=== PATIENT | male | born 1965 | race Caucasian/White ===

== ENCOUNTER 2023-06-21 05:28 | Observation (INO) ==
[2023-06-21] MEDS ORDERED: METOPROLOL TARTRATE 1 MG/ML VIAL IV STA ×2 (05:45→06:40)
[2023-06-21] MEDS ORDERED: SODIUM CHLORIDE 0.9% 1,000 ML IV SCH ×3 (05:45→07:45)
[2023-06-21 06:20] LABS: Basophils # (auto) 0.06 K/uL (0.00-0.20); Basophils % (auto) 0.9 %; Eosinophils # (auto) 0.15 K/uL (0.00-0.50); Eosinophils % (auto) 2.3 %; Hemoglobin 11.6 g/dl (14.0-18.0); Immature Granulocytes # (auto) 0.02 K/uL (0.01-0.20); Immature Granulocytes % (auto) 0.3 %; Lymphocytes # (auto) 1.56 K/uL (1.20-3.40); Mean Corpuscular Hemoglobin 32.9 pg (25.0-34.0); Mean Corpuscular Hgb Conc 34.1 g/dL (32.0-36.0); Mean Corpuscular Volume 96.3 fL (80.0-100.0); Mean Platelet Volume 11.1 fL (9.4-12.4); Monocytes # (auto) 0.82 K/uL (0.11-0.59); Monocytes % (auto) 12.6 %; Neutrophils # (auto) 3.89 K/uL (1.40-6.50); Neutrophils % (auto) 59.9 %; Platelet Count 112 K/uL (130-400); RDW Coefficient of Variation 14.3 % (11.5-14.5); RDW Standard Deviation 49.7 fL (36.4-46.3); Red Blood Count 3.53 M/uL (4.70-6.10)
[2023-06-21 06:28] LABS: Albumin Level 3.4 gm/dl (3.4-5.0); Bilirubin,Total 2.1 mg/dl (0.2-1.0); Calcium 9.8 mg/dl (8.6-10.3); Magnesium 1.6 mg/dl (1.7-2.4); Potassium 3.7 mmol/L (3.5-5.1)
[2023-06-21 06:34] LABS: Albumin Globulin Ratio 0.8 (0.9-2); BUN Creatinine Ratio 25.9 (10-20); Creatinine Clr Calc Pharmacy 118.4 ml/min; Est GFR (African American) 115.1 ml/min; Est GFR (Non-African American) 99.4 ml/min; Globulin 4.5 gm/dl (2.5-4.0); Total Protein 7.9 gm/dl (6.0-8.3)
[2023-06-21 06:37] LABS: INR 1.2 (0.9-1.1); Partial Thromboplastin Time 28.5 Seconds (21.0-31.0); Prothrombin Time 13.4 Seconds (9.0-12.0)
[2023-06-21] MEDS ORDERED: PANTOprazole 80 MG in DEXTROSE 5% 100 ML IV ONE (06:40)
[2023-06-21] MEDS ORDERED: PANTOPRAZOLE BOLUS/DRIP IV STA (06:40)
[2023-06-21 06:49] LABS: Lyme Ab IgG w/WB Rflx Negative (Negative); Lyme Ab IgM w/WB Rflx Negative (Negative)
[2023-06-21 06:50] LABS: Appearance Urine Clear (Clear); Bilirubin Urine Negative (Negative); Blood Urine Negative (Negative); Color Urine Yellow; Glucose Urine UA Negative (Negative); Ketones Urine Negative (Negative); Leukocyte Esterase Urine Negative (Negative); Nitrite Urine Negative (Negative); Protein Urine Negative (Negative); Specific Gravity Urine 1.016 (1.000-1.030); Urobilinogen Urine Negative (Negative)
--- NOTE | 2023-06-21 06:56 | XRay Report ---
XR chest 1V portable CLINICAL HISTORY: weakness COMPARISON STUDY: Chest radiograph June 16, 2019. FINDINGS: Lung volumes are normal. Lungs are clear. There is no pneumothorax or pleural effusion. Car diac size is stable. Mediastinal contours are normal. There is no evidence for pulmonary edema. IMPRESSION: No acute cardiopulmonary findings. ACT 112: Negative or not required by law. Electronically signed by: Remy Perez M.D. 06/21/2023 6:55 AM
[2023-06-21] MEDS: MAGNESIUM SULFATE / D5W 1 GM/100 ML BAG IV SCH ×2 (06:58→08:11)
--- NOTE | 2023-06-21 07:03 | Emergency Department Note ---
Impression & Plan GIB (gastrointestinal bleeding), Alcohol use, Atrial fibrillation ED Provider Note CHIEF COMPLAINT: vomiting blood, dark stools HISTORY OF PRESENT ILLNESS: This 58-year-old male patient past medical history of alcohol dependency, stroke, tobacco dependency, hypertension presents to the emergency department with complaints of nausea, vomiting blood and dark stools. Patient states he has a history of alcohol abuse, drinking one half of a bottle of vodka a day. Patient states he does not follow with a physician as he does not like doctors. He is noted to be tachycardic at triage. Patient denies taking any medications. REVIEW OF SYSTEMS: A review of systems was performed with positives and pertinent negatives listed in the history of present illness. 10 systems were reviewed and are otherwise negative. ALLERGIES: see below MEDICATIONS: see below PMH: see below SOCIAL HISTORY: see below DDx: Peptic ulcer disease, esophageal varices, pancreatitis, diverticulitis, viral etiology among others PHYSICAL EXAM: Vital signs reviewed. General: generally well-appearing 58-year-old male, in no significant distress. clutching an emesis bag with minimal amounts of bright red blood HEENT: No scleral icterus, PERRLA, neck supple. Atraumatic. Cardiovascular: tachycardic, irregular, no extra sounds Pulmonary: Clear to auscultation bilaterally, normal work of breathing. Abdomen: Soft, mild diffuse abdominal tenderness, no rebound or guarding, nondistended, positive bowel sounds. Musculoskeletal: Atraumatic, no peripheral edema. GI: Guaiac positive melanotic stool. Normal external rectal mucosa. Neurologic: Patient awake alert and oriented x 3, speech is clear Skin: Warm, dry, no rash EXTERNAL medical records reviewed: PCP notes dated 09/17 and 09/24/2022, medication history, laboratory work and medication prescription fill history. EMERGENCY DEPARTMENT COURSE/MDM: This patient was evaluated and appeared to be in no significant distress. IV access was obtained and laboratory work was drawn. The patient was placed on the youth nutritional monitor noted to be in a rapid atrial fibrillation. IV access was obtained and reveals a hemoglobin of 11.6. Stool guaiac is positive and melanotic stool. He has not had any significant vomiting of bright red blood. He was started on a Protonix drip and bolus. He was placed on the alcohol withdrawal scale. The patient was discussed with GI as well as hospitalist service. Patient was informed of the findings and plan and will be admitted for further management. MONITORING: An order for cardiac monitoring was placed and the patient is noted to be in a atrial fibrillation at 159 beats per minute. RADIOLOGY: chest x-ray to my interpretation reveals no evidence of focal lung consolidation or failure, otherwise defer to radiology EKG: to my interpretation reveals atrial fibrillation with rapid ventricular response at 160 bpm. Minimal criteria for LVH, nonspecific ST abnormalities. QTc is 479. When compared to previous dated September 10, 2022, atrial fibrillation is new DISPOSITION: admission Past Med/Surg History Medical History GERD (gastroesophageal reflux disease) controlled, stable per pt Alcohol use daily drinker 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-no current deficits Surgical History H/O endoscopic sinus surgery H/O nasal septoplasty History of open reduction and internal fixation (ORIF) procedure right foot - 07/2022 [facility] Family History Grandmother (Maternal) Diabetes Other No significant family history Denies family history of Ovarian cancer Prostate cancer Depression Heart disease Myocardial infarction Breast cancer Lung cancer Colorectal cancer Stroke Social History Smoking Status: Current every day smoker Tobacco Type: Cigarettes packs per day: 1; Cigarettes Per Day: smokes cigarettes 20 per day- if smokes cigars 1/2 pack- advised; Second Hand Exposure: No; Do You Dip or Chew Tobacco: No; Hx Alcohol Use: Yes Alcohol type: beer and hard liquor Alcohol Intake Frequency: 4 or More x per/Week Hx Substance Use: No Preferred Language: Persian Communication Ability: Effective Visual Impairment: Limited 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: Normal Revenue Cycle Analyst Required: No Beliefs That Will Affect Care: None marital status: single Current Living Situation: Alone current occupational status: employed How many Children do You have: 0 Feels Safe at Home: Yes Childhood Exposure to Second-Hand Smoke: Yes Diet: regular caffeine: Yes during the past year weight has: remained stable Dental Care, Regularly: No Physical Activity Frequency: Daily Seatbelt Use: never Sunscreen Use: No Assistive Devices: Glasses Allergies Allergies Allergy/AdvReac Type Severity Reaction Status Date / Time bee venom protein (honey bee) Allergy Severe Anaphylaxis Verified 09/29/22 11:15 Home Meds Home Medications Medication Instructions Recorded Confirmed No Known Home Medications 06/21/23 06/21/23 Results & Data (ED) Vital Signs Vital Signs - 24 hr 06/21/23 05:33 06/21/23 05:37 06/21/23 05:46 Temperature 36.7 C Temperature Source Oral Pulse Rate 155 H 159 H 154 H Pulse Rhythm Irregular Respiratory Rate 20 13 Respiratory Effort / Characteristics Non-Labored Respiratory Depth Normal Respiratory Pattern Regular Blood Pressure 128/91 Blood Pressure Mean 103 Pulse Oximetry 95 95 Oxygen Delivery Method Room Air Room Air Sepsis Recent Fever Within 48 Hours No Sepsis New/Unexplained Change in Mental Status N/A Sepsis Action Taken by Nursing No Action Required 06/21/23 05:55 06/21/23 06:10 Temperature Temperature Source Pulse Rate 166 H 125 H Pulse Rhythm Respiratory Rate Respiratory Effort / Characteristics Respiratory Depth Respiratory Pattern Blood Pressure 115/73 117/79 Blood Pressure Mean Pulse Oximetry Oxygen Delivery Method Sepsis Recent Fever Within 48 Hours Sepsis New/Unexplained Change in Mental Status Sepsis Action Taken by Correction Medications Current Medication List: was personally reviewed by me Laboratory Data Attestation: I reviewed the patient's lab results. 06/21/23 13:07 06/21/23 05:39 Lab Results 06/21/23 06/21/23 06/21/23 Range/Units 05:39 06:07 06:08 WBC 6.50 (4.8-10.8) K/ul RBC 3.53 L (4.70-6.10) M/uL Hgb 11.6 L (14.0-18.0) g/dl Hct 34.0 L (42.0-52.0) % MCV 96.3 (80.0-100.0) fL MCH 32.9 (25.0-34.0) pg MCHC 34.1 (32.0-36.0) g/dL RDW Std Deviation 49.7 H (36.4-46.3) fL RDW Coeff of Jason 14.3 (11.5-14.5) % Plt Count 112 L (130-400) K/uL MPV 11.1 (9.4-12.4) fL Immature Gran % (Auto) 0.3 % Neut % (Auto) 59.9 % Lymph % (Auto) 24.0 % Haines % (Auto) 12.6 % Eos % (Auto) 2.3 % Baso % (Auto) 0.9 % Neut # (Auto) 3.89 (1.40-6.50) K/uL Lymph # (Auto) 1.56 (1.20-3.40) K/uL Haines # (Auto) 0.82 H (0.11-0.59) K/uL Eos # (Auto) 0.15 (0.00-0.50) K/uL Baso # (Auto) 0.06 (0.00-0.20) K/uL Immature Gran # (Auto) 0.02 (0.01-0.20) K/uL PT 13.4 H (9.0-12.0) Seconds INR 1.2 H (0.9-1.1) APTT 28.5 (21.0-31.0) Seconds PTT Ratio 1.0 Sodium 139 (136-145) mmol/L Potassium 3.7 (3.5-5.1) mmol/L Chloride 104 (98-107) mmol/L Carbon Dioxide 27 (21-32) mmol/L Anion Gap 8 (3-11) BUN 21 (6-23) mg/dl Creatinine 0.81 (0.6-1.4) mg/dl Est Cr Clr Drug Dosing 118.4 ml/min Est GFR ( Amer) 115.1 ml/min Est GFR (Non-Af Amer) 99.4 ml/min BUN/Creatinine Ratio 25.9 H (10-20) Glucose 108 H (70-99(Fasting)) mg/dl Calcium 9.8 (8.6-10.3) mg/dl Magnesium 1.6 L (1.7-2.4) mg/dl Total Bilirubin 2.1 H (0.2-1.0) mg/dl AST 56 H (13-39) U/L ALT 20 (7-52) U/L Alkaline Phosphatase 217 H (34-104) U/L Troponin I High Sens 8.3 (0-20) pg/ml Total Protein 7.9 (6.0-8.3) gm/dl Albumin 3.4 (3.4-5.0) gm/dl Globulin 4.5 H (2.5-4.0) gm/dl Albumin/Globulin Ratio 0.8 L (0.9-2) Lipase 183 H (11-82) U/L TSH 2.842 (0.300-4.500) uIu/ml Urine Color Urine Appearance (Clear) Urine pH (4.5-7.5) Ur Specific [place] (1.000-1.030) Urine Protein (Negative) Urine Glucose (UA) (Negative) Urine Ketones (Negative) Urine Blood (Negative) Urine Nitrite (Negative) Urine Bilirubin (Negative) Urine Urobilinogen (Negative) Ur Leukocyte Esterase (Negative) Ethyl Alcohol mg/dL 94.7 H (<10.0) mg/dl Anaplasma Smear See Comment A. phagocytophilum DNA Negative (Negative) Babesia Smear See Comment Babesia microti DNA PCR Not Detected (Not Detected) Lyme Disease IgG Ab Negative (Negative) Lyme Disease IgM Ab Negative (Negative) E.chaffeensis DNA (PCR) Negative (Negative) Q Fever Phase I IgG Ab NEGATIVE Q Fever Phase I IgM Ab NEGATIVE Q Fever Phase II IgG Ab NEGATIVE Q Fever Phase II IgM Ab NEGATIVE Rickettsia IgG Ab NOT DETECTED Rickettsia IgM Ab NOT DETECTED SARS-CoV-2, RNA, NAAT (NEGATIVE) Typhus Fever IgG Ab NOT DETECTED Typhus Fever IgM Ab NOT DETECTED Blood Type O Positive Antibody Screen NEGATIVE Crossmatch See Detail 06/21/23 06/21/23 Range/Units 06:26 06:36 WBC (4.8-10.8) K/ul RBC (4.70-6.10) M/uL Hgb (14.0-18.0) g/dl Hct (42.0-52.0) % MCV (80.0-100.0) fL MCH (25.0-34.0) pg MCHC (32.0-36.0) g/dL RDW Std Deviation (36.4-46.3) fL RDW Coeff of Jason (11.5-14.5) % Plt Count (130-400) K/uL MPV (9.4-12.4) fL Immature Gran % (Auto) % Neut % (Auto) % Lymph % (Auto) % Haines % (Auto) % Eos % (Auto) % Baso % (Auto) % Neut # (Auto) (1.40-6.50) K/uL Lymph # (Auto) (1.20-3.40) K/uL Haines # (Auto) (0.11-0.59) K/uL Eos # (Auto) (0.00-0.50) K/uL Baso # (Auto) (0.00-0.20) K/uL Immature Gran # (Auto) (0.01-0.20) K/uL PT (9.0-12.0) Seconds INR (0.9-1.1) APTT (21.0-31.0) Seconds PTT Ratio Sodium (136-145) mmol/L Potassium (3.5-5.1) mmol/L Chloride (98-107) mmol/L Carbon Dioxide (21-32) mmol/L Anion Gap (3-11) BUN (6-23) mg/dl Creatinine (0.6-1.4) mg/dl Est Cr Clr Drug Dosing ml/min Est GFR ( Amer) ml/min Est GFR (Non-Af Amer) ml/min BUN/Creatinine Ratio (10-20) Glucose (70-99(Fasting)) mg/dl Calcium (8.6-10.3) mg/dl Magnesium (1.7-2.4) mg/dl Total Bilirubin (0.2-1.0) mg/dl AST (13-39) U/L ALT (7-52) U/L Alkaline Phosphatase (34-104) U/L Troponin I High Sens (0-20) pg/ml Total Protein (6.0-8.3) gm/dl Albumin (3.4-5.0) gm/dl Globulin (2.5-4.0) gm/dl Albumin/Globulin Ratio (0.9-2) Lipase (11-82) U/L TSH (0.300-4.500) uIu/ml Urine Color Yellow Urine Appearance Clear (Clear) Urine pH 8.0 H (4.5-7.5) Ur Specific [place] 1.016 (1.000-1.030) Urine Protein Negative (Negative) Urine Glucose (UA) Negative (Negative) Urine Ketones Negative (Negative) Urine Blood Negative (Negative) Urine Nitrite Negative (Negative) Urine Bilirubin Negative (Negative) Urine Urobilinogen Negative (Negative) Ur Leukocyte Esterase Negative (Negative) Ethyl Alcohol mg/dL (<10.0) mg/dl Anaplasma Smear A. phagocytophilum DNA (Negative) Babesia Smear Babesia microti DNA PCR (Not Detected) Lyme Disease IgG Ab (Negative) Lyme Disease IgM Ab (Negative) E.chaffeensis DNA (PCR) (Negative) Q Fever Phase I IgG Ab Q Fever Phase I IgM Ab Q Fever Phase II IgG Ab Q Fever Phase II IgM Ab Rickettsia IgG Ab Rickettsia IgM Ab SARS-CoV-2, RNA, NAAT NEGATIVE (NEGATIVE) Typhus Fever IgG Ab Typhus Fever IgM Ab Blood Type Antibody Screen Crossmatch Administered Medications Discontinued Medications Sodium Chloride (Nss) 1,000 mls @ 999 mls/hr IV .Q1H1M [facility] Stop: 06/21/23 06:45 Last Infusion: 06/21/23 07:16 Dose: Infused Documented By: Admin: 06/21/23 05:49 Dose: 999 mls/hr Documented By: JOSE Sodium Chloride (Nss) 1,000 mls @ 125 mls/hr IV .Q8H [facility] Stop: 06/21/23 13:44 Last Admin: 06/21/23 06:34 Dose: 125 mls/hr Documented By: JOSE Pantoprazole Sodium 80 mg/ (Dextrose) 120 mls @ 400 mls/hr IV NOW ONE Stop: 06/21/23 06:57 Last Admin: 06/21/23 07:16 Dose: 400 mls/hr Documented By: DAVIS Pantoprazole Sodium 40 mg/ (Dextrose) 100 mls @ 20 mls/hr IV Q5H [facility] Stop: 07/21/23 06:59 Last Admin: 06/21/23 13:49 Dose: 8 mg/hr, 20 mls/hr Documented By: Infusion: 06/21/23 13:12 Dose: Infused Documented By: Admin: 06/21/23 08:12 Dose: 8 mg/hr, 20 mls/hr Documented By: DAVIS Magnesium Sulfate/Dextrose (Magnesium Sulfate / D5w) 1 gm in 100 mls @ 100 mls/hr IV Q1H [facility] Stop: 06/21/23 08:40 Last Admin: 06/21/23 08:11 Dose: 100 mls/hr Documented By: Infusion: 06/21/23 08:11 Dose: Infused Documented By: Admin: 06/21/23 06:58 Dose: 100 mls/hr Documented By: HS Sodium Chloride (Nss) 1,000 mls @ 999 mls/hr IV .Q1H1M ONE Stop: 06/21/23 08:15 Last Admin: 06/21/23 08:11 Dose: 999 mls/hr Documented By: HS Sodium Chloride (Nss) 1,000 mls @ 125 mls/hr IV .Q8H [facility] Stop: 06/21/23 23:44 Last Admin: 06/21/23 09:11 Dose: 125 mls/hr Documented By: HS Thiamine HCl 500 mg/ Sodium (Chloride) 55 mls @ 210 mls/hr IV NOW STA Stop: 06/21/23 08:13 Last Admin: 06/21/23 09:11 Dose: 210 mls/hr Documented By: HS Magnesium Sulfate/Dextrose (Magnesium Sulfate / D5w) 1 gm in 100 mls @ 50 mls/hr IV ONE ONE Stop: 06/21/23 11:52 Last Admin: 06/21/23 10:49 Dose: 50 mls/hr Documented By: HS Metoprolol Tartrate (Metoprolol Tartrate 1 Mg/Ml Vial) 5 mg IV NOW STA Stop: 06/21/23 05:46 Last Admin: 06/21/23 05:55 Dose: 5 mg Documented By: AUGUSTINAW Metoprolol Tartrate (Metoprolol Tartrate 1 Mg/Ml Vial) 5 mg IV NOW STA Stop: 06/21/23 06:41 Last Admin: 06/21/23 06:58 Dose: 5 mg Documented By: HS Metoprolol Tartrate (Metoprolol Tartrate 1 Mg/Ml Vial) 5 mg IV Q6 [facility] Stop: 07/21/23 11:59 Last Admin: 06/21/23 13:13 Dose: 5 mg Documented By: [facility] Metoprolol Tartrate (Metoprolol Tartrate 25 Mg Tab) 12.5 mg PO ONE ONE Stop: 06/21/23 09:54 Last Admin: 06/21/23 10:48 Dose: 12.5 mg Documented By: HS Pantoprazole Sodium (Pantoprazole Bolus/Drip) 1 each IV NOW STA Stop: 06/21/23 06:41 Last Admin: 06/21/23 08:12 Dose: 1 each Documented By: HS Imaging Data Radiologist's Impression: Chest X-Ray 06/21/23 05:45 XR chest 1V portable CLINICAL HISTORY: weakness COMPARISON STUDY: Chest radiograph June 16, 2019. FINDINGS: Lung volumes are normal. Lungs are clear. There is no pneumothorax or pleural effusion. Cardiac size is stable. Mediastinal contours are normal. There is no evidence for pulmonary edema. IMPRESSION: No acute cardiopulmonary findings. ACT 112: Negative or not required by law. Electronically signed by: Remy Perez M.D. 06/21/2023 6:55 AM Discharge Plan Visit Data Chief Complaint: GI Assessment Stated Complaint: VOMITED X3 SINCE 0200, ?GI BLEED ED Provider: Krystal Wilson Discharge Problem: GIB (gastrointestinal bleeding), Alcohol use, Atrial fibrillation Patient Disposition: Admitted As Inpatient Discharge Instructions Interventions: ED Discharge Assessment Last Done: 06/21/23 09:54 Discharge Problem: GIB (gastrointestinal bleeding) Qualifiers: GI bleed type/associated pathology: gastritis Gastritis type: acute gastritis Q ualified Code(s): K29.01 - Acute gastritis with bleeding
[2023-06-21 07:09] LABS: Troponin I High Sensitivity 8.3 pg/ml (0-20)
[2023-06-21 07:13] LABS: Thyroid Stimulating Hormone 2.842 uIu/ml (0.300-4.500)
[2023-06-21] MEDS ORDERED: SODIUM CHLORIDE 0.9% 250 ML IV PRN (07:13)
[2023-06-21] MEDS ORDERED: SODIUM CHLORIDE 0.9% 1,000 ML IV ONE (07:15)
[2023-06-21] MEDS ORDERED: METOPROLOL TARTRATE 1 MG/ML VIAL IV PRN (07:42)
[2023-06-21] MEDS ORDERED: Ativan IV Alcohol Withdrawal--Active Protocol IV PRN (07:45)
[2023-06-21] MEDS ORDERED: LORazepam 2 MG in SYRINGE 1 ML IV PRN (07:45)
[2023-06-21] MEDS ORDERED: LORazepam 3 MG in SYRINGE 1.5 ML IV PRN (07:45)
[2023-06-21] MEDS ORDERED: LORazepam 1 MG in SYRINGE 0.5 ML IV PRN (07:45)
[2023-06-21] MEDS ORDERED: THIAMINE HCL 500 MG in SODIUM CHLORIDE 0.9% 50 ML IV STA (07:58)
[2023-06-21] MEDS: PANTOprazole 40 MG in DEXTROSE 5% MINI-B 100 ML IV SCH ×2 (08:12→13:49)
--- NOTE | 2023-06-21 08:39 | Electrocardiogram Report ---
Test Reason : Blood Pressure : / mmHG Vent. Rate : 160 BPM Atrial Rate : 000 BPM P-R Int : 000 ms QRS Dur : 090 ms QT Int : 294 ms P-R-T Axes : 000 -26 073 degrees QTc Int : 479 ms Atrial fibrillation with rapid ventricular response Diffuse Nonspecific ST abnormality Abnormal ECG When compared with ECG of 10-SEP-2022 11:54, Atrial fibrillation has replaced Sinus rhythm Vent. rate has increased BY 91 BPM Confirmed by Jed Ugalde ([id number]) on 06/21/2023 8:39:12 AM Referred By: Confirmed By:Jed Ugalde
[2023-06-21] MEDS ORDERED: THIAMINE HCL 100 MG in SYRINGE 9 ML IV SCH (09:00)
--- NOTE | 2023-06-21 09:48 | Gastrointestinal Consultation ---
Date of Consultation June 21, 2023 Assessment & Plan (1) Hematemesis: Case discussed with Dr. Patterson who advised on plan. I discussed with the patient about EGD to further evaluate and he is agreeable. I had reviewed the case with Dr. Liu in anesthesia and given the new a fib, anesthesia is recommending cardiology see the patient and stabilize the patient before having endoscopy. I relayed this to Dr. Walker. - continue with protonix drip. - will plan for EGD once stablized from cardiology standpoint. - continue to follow hgb/hct and transfuse as needed. Supervising Physician Co-Signing Physician Notes I saw the patient and agree with the findings as documented by WILI Zhao Patient has decided to sign out AMA unfortunately. History of Present Illness Reason for Consultation: GI bleed Requesting Physician: José Miguel Walker MD Attending Physician: José Miguel Walker MD History of Present Illness Patient is a 58 year old male with history of alcohol abuse who presented to the ED today with sudden onset hematemesis. He tells me that he woke up at 2 am and had an episode of hematemesis. He tells me he was feeling well yesterday before he went to sleep and did not have any issues. He tells me that he had ate pizza and had been drinking alcohol yesterday. He would not quantify how much alcohol he had drank but tells me it was not as much as he usually drinks. He tells me that since the hematemesis started that he has had 4 total episodes. The last episode having been around 9 am. He denies any nsaid use. He admits to frequent issues with heartburn which he treats himself with otc tums and otc ppi. He admits that since this morning that he has had some dark stools. He was also found to have a fib upon evaluation in the ED. Patient tells me that this is new and he was never diagnosed with this before. He denies any dysphagia, abdominal pain, brbpr. he has never had an EGD. Patient tells me that he does not typically follow with anyone on his healthcare and notes he doesn't like doctors. Allergies Allergy/AdvReac Type Severity Reaction Status Date / Time bee venom protein (honey bee) Allergy Severe Anaphylaxis Verified 09/29/22 11:15 Home Medications Medication Instructions Recorded Confirmed Type No Known Home Medications 06/21/23 06/21/23 History Patient History Medical History GERD (gastroesophageal reflux disease) controlled, stable per pt Alcohol use daily drinker 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-no current deficits Surgical History H/O endoscopic sinus surgery H/O nasal septoplasty History of open reduction and internal fixation (ORIF) procedure right foot - 07/2022 [facility] Family History Grandmother (Maternal) Diabetes Other No significant family history Denies family history of Ovarian cancer Prostate cancer Depression Heart disease Myocardial infarction Breast cancer Lung cancer Colorectal cancer Stroke Social History Smoking Status: Current every day smoker Tobacco Type: Cigarettes packs per day: 1; Cigarettes Per Day: smokes cigarettes 20 per day- if smokes cigars 1/2 pack- advised; Second Hand Exposure: No; Do You Dip or Chew Tobacco: No; Hx Alcohol Use: Yes Alcohol type: beer and hard liquor Alcohol Intake Frequency: 4 or More x per/Week Hx Substance Use: No Preferred Language: Maltese Communication Ability: Effective Visual Impairment: Limited 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: Normal Psychological Science Professor Required: No Beliefs That Will Affect Care: None marital status: single Current Living Situation: Alone current occupational status: employed How many Children do You have: 0 Feels Safe at Home: Yes Childhood Exposure to Second-Hand Smoke: Yes Diet: regular caffeine: Yes during the past year weight has: remained stable Dental Care, Regularly: No Physical Activity Frequency: Daily Seatbelt Use: never Sunscreen Use: No Assistive Devices: Glasses Review of Systems Review of Systems: All systems reviewed & are unremarkable except as noted in HPI & below Physical Exam Constitutional: WD/WN, vitals as above Respiratory: normal respiratory effort, lungs clear to auscultation Cardiovascular: tachycardia, irregular. Gastrointestinal (Abdomen): normal bowel sounds, soft, nontender, no hepatosplenomegaly Skin: no rashes, warm and dry Psychiatric: Orientation: alert and oriented x 3 Results & Data Vital Signs (Past 12 Hours) Vital Signs Temp Pulse Resp BP Pulse Ox O2 Del Method 06/21/23 08:40 129/88 06/21/23 08:40 124 H 22 97 06/21/23 08:30 140 H 21 96 06/21/23 08:30 137/83 06/21/23 08:20 141 H 21 100 06/21/23 08:20 91/69 L 06/21/23 08:10 125 H 20 94 06/21/23 08:10 107/76 06/21/23 08:00 118 H 20 95 06/21/23 08:00 119/88 06/21/23 07:50 102/79 06/21/23 07:50 115 H 21 95 06/21/23 07:40 102/81 06/21/23 07:40 141 H 20 96 06/21/23 07:30 123 H 14 96 06/21/23 07:30 112/74 06/21/23 07:20 139 H 30 H 97 06/21/23 07:20 121/91 06/21/23 07:10 117 H 23 97 06/21/23 07:10 124/86 06/21/23 07:00 138 H 21 94 06/21/23 07:00 104/81 06/21/23 06:58 144 H 107/86 06/21/23 06:50 141 H 21 96 06/21/23 06:50 107/86 06/21/23 06:40 140 H 19 98 06/21/23 06:40 111/89 06/21/23 06:30 99/71 L 06/21/23 06:30 148 H 21 98 06/21/23 06:28 117/79 06/21/23 06:28 132 H 19 99 06/21/23 06:26 133 H 18 06/21/23 06:10 127 H 20 99 06/21/23 06:10 128/89 06/21/23 06:10 125 H 117/79 06/21/23 06:00 156 H 22 98 06/21/23 06:00 110/90 06/21/23 05:57 115/73 06/21/23 05:57 158 H 16 98 06/21/23 05:56 95/71 L 06/21/23 05:56 169 H 20 99 06/21/23 05:55 166 H 115/73 06/21/23 05:50 145 H 20 97 06/21/23 05:46 154 H 13 95 Room Air 06/21/23 05:40 159 H 14 96 06/21/23 05:37 98.1 F 159 H 20 128/91 95 Room Air 06/21/23 05:33 150 H 20 96 06/21/23 05:33 128/91 06/21/23 05:33 155 H PG Care Time/CCT Total # of Minutes Spent Total Time Spent with Patient: Total time spent is greater than 50% in coordination of care (as documented) at patient's floor/unit and/or counseling patient: Coding Level of Care Code 37162 OFFICE CONSULT LVL M Diagnoses Hematemesis K92.0 Time Spent (min) 48
[2023-06-21] MEDS ORDERED: METOPROLOL TARTRATE 25 MG TAB PO ONE (09:53)
[2023-06-21] MEDS ORDERED: MAGNESIUM SULFATE / D5W 1 GM/100 ML BAG IV ONE (09:53)
[2023-06-21] MEDS ORDERED: METOPROLOL TARTRATE 1 MG/ML VIAL IV SCH (12:00)
--- NOTE | 2023-06-21 13:49 | XCELERA ---
[id number]
--- NOTE | 2023-06-21 16:58 | History & Physical Report ---
Date of Service June 21, 2023 Assessment & Plan (1) Hematemesis: Plan: Patient hemodynamically stable. Will be admitted to telemetry unit. We will have gastroenterology consult. Will be continued on IV fluids and intravenous Protonix drip at this time. Patient be kept n.p.o. until decision of endoscopy is made (2) Atrial fibrillation: Plan: Atrial fibrillation is new to the patient by his account. Patient will be given intravenous metoprolol scheduled and as needed. He will be given a dose of magnesium. Anticoagulation is contraindicated with concern for hematemesis. (3) Alcohol use: Plan: Reportedly drinks alcohol on a daily basis to half of a handle of vodka. Patient be on a WSS scale. At this point time he is got no signs or symptoms of withdrawal Admission and Anticipated Discharge Date Admission Date: June 21, 2023 History of Present Illness Primary Care Provider: Huber Sheehan, pt awoke with abdominal pain, vomiting dark then bright red blood, found also to have afib rvr in ER with eventual conversion to NSR, he usually drinks a 1/2 handle of vodka daily Frequent issues with heartburn, takes some otc antacids afib wtih rapid rate but hemodynamically stable, hgb stable at 11 gms Allergies Allergy/AdvReac Type Severity Reaction Status Date / Time bee venom protein (honey bee) Allergy Severe Anaphylaxis Verified 09/29/22 11:15 Home Medications Medication Instructions Recorded Confirmed Type No Known Home Medications 06/21/23 06/21/23 History Past Med/Surg History Medical History (Updated 06/21/23 @ 16:57 by José Miguel Walker MD) GERD (gastroesophageal reflux disease) controlled, stable per pt Alcohol use daily drinker 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-no current deficits Surgical History H/O endoscopic sinus surgery H/O nasal septoplasty History of open reduction and internal fixation (ORIF) procedure right foot - 07/2022 [facility] Family History Grandmother (Maternal) Diabetes Other No significant family history Denies family history of Ovarian cancer Prostate cancer Depression Heart disease Myocardial infarction Breast cancer Lung cancer Colorectal cancer Stroke Social History Smoking Status: Current every day smoker Tobacco Type: Cigarettes packs per day: 1; Cigarettes Per Day: smokes cigarettes 20 per day- if smokes cigars 1/2 pack- advised; Second Hand Exposure: No; Do You Dip or Chew Tobacco: No; Hx Alcohol Use: Yes Alcohol type: beer and hard liquor Alcohol Intake Frequency: 4 or More x per/Week Hx Substance Use: No Preferred Language: Serbian Communication Ability: Effective Visual Impairment: Limited 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: Normal Coin Purse Framer Required: No Beliefs That Will Affect Care: None marital status: single Current Living Situation: Alone current occupational status: employed How many Children do You have: 0 Feels Safe at Home: Yes Childhood Exposure to Second-Hand Smoke: Yes Diet: regular caffeine: Yes during the past year weight has: remained stable Dental Care, Regularly: No Physical Activity Frequency: Daily Seatbelt Use: never Sunscreen Use: No Assistive Devices: Glasses Review of Systems Review of Systems: Mild distress and fatigue no headache, no visual changes no speech or swallowing issues no chest pain, pressure or palpitations no shortness of breath, cough or wheezes epigastric abdominal pain, vomiting red material, ? melena no dysuria, hematuria or frequency no focal joint pain or swelling no back pain, CVA tenderness or radicular pain no bruising, bleeding or rashes no focal signs of weakness or numbness or altered sensation no complaints of anxiety or depression.. Physical Exam Physical Exam: The patient appeared well nourished and normally developed. Vital signs as documented. Head exam is normocephalic atraumatic Neck is without JVD, thyromegaly, or carotid bruits. Lungs are clear to auscultation, no focal loss of breath sounds Cardiac exam, irregular rapid rhythm. No murmurs, rubs or gallops. Abdominal exam reveals normal bowel sounds, soft minor epigastric tenderness Extremities are nonedematous and both pedal pulses are present Neurologic exam is alert and oriented, no focal loss of strength or sensation Skin is without bruises or rashes Psychologically is without concerns for anxiety or depression.. Results & Data Results & Data Vital Signs (Past 12 Hours) Vital Signs Temp Pulse Pulse Resp BP BP Pulse Ox 06/21/23 14:23 80 139/77 06/21/23 13:13 83 157/85 H 06/21/23 13:12 81 18 157/85 H 97 06/21/23 13:10 06/21/23 11:00 128 H 20 139/86 97 06/21/23 08:40 129/88 06/21/23 08:40 124 H 22 97 06/21/23 08:30 140 H 21 96 06/21/23 08:30 137/83 06/21/23 08:20 141 H 21 100 06/21/23 08:20 91/69 L 06/21/23 08:10 125 H 20 94 06/21/23 08:10 107/76 06/21/23 08:00 118 H 20 95 06/21/23 08:00 119/88 06/21/23 07:50 102/79 06/21/23 07:50 115 H 21 95 06/21/23 07:40 102/81 06/21/23 07:40 141 H 20 96 06/21/23 07:30 123 H 14 96 06/21/23 07:30 112/74 06/21/23 07:20 139 H 30 H 97 06/21/23 07:20 121/91 06/21/23 07:10 117 H 23 97 06/21/23 07:10 124/86 06/21/23 07:00 138 H 21 94 06/21/23 07:00 104/81 06/21/23 06:58 144 H 107/86 06/21/23 06:50 141 H 21 96 06/21/23 06:50 107/86 06/21/23 06:40 140 H 19 98 06/21/23 06:40 111/89 06/21/23 06:30 99/71 L 06/21/23 06:30 148 H 21 98 06/21/23 06:28 117/79 06/21/23 06:28 132 H 19 99 06/21/23 06:26 133 H 18 06/21/23 06:10 127 H 20 99 06/21/23 06:10 128/89 06/21/23 06:10 125 H 117/79 06/21/23 06:00 156 H 22 98 06/21/23 06:00 110/90 06/21/23 05:57 115/73 06/21/23 05:57 158 H 16 98 06/21/23 05:56 95/71 L 11/13/23 05:56 169 H 20 99 06/21/23 05:55 166 H 115/73 06/21/23 05:50 145 H 20 97 06/21/23 05:46 154 H 13 95 06/21/23 05:40 159 H 14 96 06/21/23 05:37 98.1 F 159 H 20 128/91 95 06/21/23 05:33 150 H 20 96 06/21/23 05:33 128/91 06/21/23 05:33 155 H Pulse Ox O2 Del Method O2 Del Method 06/21/23 14:23 06/21/23 13:13 06/21/23 13:12 Room Air 06/21/23 13:10 99 Room Air 06/21/23 11:00 Room Air 06/21/23 08:40 06/21/23 08:40 06/21/23 08:30 06/21/23 08:30 06/21/23 08:20 06/21/23 08:20 06/21/23 08:10 06/21/23 08:10 06/21/23 08:00 06/21/23 08:00 06/21/23 07:50 06/21/23 07:50 06/21/23 07:40 06/21/23 07:40 06/21/23 07:30 06/21/23 07:30 06/21/23 07:20 06/21/23 07:20 06/21/23 07:10 06/21/23 07:10 06/21/23 07:00 06/21/23 07:00 06/21/23 06:58 06/21/23 06:50 06/21/23 06:50 06/21/23 06:40 06/21/23 06:40 06/21/23 06:30 06/21/23 06:30 06/21/23 06:28 06/21/23 06:28 06/21/23 06:26 06/21/23 06:10 06/21/23 06:10 06/21/23 06:10 06/21/23 06:00 06/21/23 06:00 06/21/23 05:57 06/21/23 05:57 06/21/23 05:56 06/21/23 05:56 06/21/23 05:55 06/21/23 05:50 06/21/23 05:46 Room Air 06/21/23 05:40 06/21/23 05:37 Room Air 06/21/23 05:33 06/21/23 05:33 06/21/23 05:33 Laboratory Results reviewed cbc and chemistry ECG Additional Comments: atrial fibrillation with RVR, eventual conversion to NSR Code Status & VTE Plan VTE Prophylaxis Plan VTE Prophylaxis will be ordered: Yes PG Care Time/CCT Total # of Minutes Spent Total Time Spent with Patient: Total time spent is greater than 50% in coordination of care (as documented) at patient's floor/unit and/or counseling patient: Coding Level of Care Code 73018 INT INP/OBS CARE 375MIN Diagnoses Hematemesis K92.0 Atrial fibrillation I48.91 Alcohol use Z78.9
--- NOTE | 2023-06-21 17:01 | Discharge Summary ---
Date of Service June 21, 2023 Admission HPI Per Admitting Provider pt awoke with abdominal pain, vomiting dark then bright red blood, found also to have afib rvr in ER with eventual conversion to NSR, he usually drinks a 1/2 handle of vodka daily Frequent issues with heartburn, takes some otc antacids afib wtih rapid rate but hemodynamically stable, hgb stable at 11 gms Principal Diagnosis Patient left AGAINST MEDICAL ADVICE understanding risks of personal injury and Diagnosis cannot be undertaken as the patient did not permit additional testing however atrial fibrillation did resolve to normal sinus rhythm Discharge Data Allergies Allergy/AdvReac Type Severity Reaction Status Date / Time bee venom protein (honey bee) Allergy Severe Anaphylaxis Verified 09/29/22 11:15 Consultations 06/21/23 06:57 ED Decision to Admit Stat 06/21/23 07:16 Consult Gastroenterology Stat 06/21/23 07:39 Consult Gastroenterology Routine Procedures Performed Operation Date: 06/22/23 17:00 <No data on this case meets the specified criteria> Hospital Course (1) Hematemesis: Patient hemodynamically stable. Will be admitted to telemetry unit. We will have gastroenterology consult. Will be continued on IV fluids and intravenous Protonix drip at this time. Because of atrial fibrillation the patient's endoscopy was postponed for 1 more day. Patient decided he cannot wait for this. Patient will be discharged home. He is offered prescriptions for Protonix or Pepcid he declined (2) Atrial fibrillation: Atrial fibrillation resolved in normal sinus rhythm. Patient was offered prescriptions for this she declined he was given instructions to return if he has any chest pain rapid heart rhythm or shortness of breath (3) Alcohol use: Reportedly drinks alcohol on a daily basis to half of a handle of vodka. 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 Provider Instructions: offered to send in RX for the pt, pt refused any RX Pending Studies at Discharge: Yes Stand-Alone Forms: [facility], Smoking Cessation Medications and DC Order Prescriptions: No Action No Known Home Medications Discharge Orders: Left Against Medical Advice (Routine); Ordered 06/21/23 Ordered By: José Miguel Walker Admission Data Admit Date/Time: 06/21/23 07:35 Attending Provider: José Miguel Walker Admit Provider: José Miguel Walker Primary Care Provider: Huber Sheehan Other Providers: José Miguel Walker; Matthew Patterson; Dawson Montejo Coding Level of Care Code INP/OBS EV SAME DAY LV 3,85MIN Diagnoses Hematemesis K92.0 Atrial fibrillation I48.91 Alcohol use Z78.9
[2023-06-22] MEDS ORDERED: THIAMINE HCL 100 MG in SYRINGE 9 ML IV SCH (09:00)
[2023-06-24 06:09] LABS: Ehrlichia chaff DNA Bld Negative (Negative)
[2023-06-25 22:12] LABS: Babesia microti DNA Not Detected (Not Detected); Q Fever IgG, Phase I NEGATIVE; Q Fever Phase I IgM Antibody NEGATIVE; Q Fever Phase II IgG Antibody NEGATIVE; Q Fever Phase II IgM Antibody NEGATIVE; R. typhi IgG Ab NOT DETECTED; R. typhi IgM Ab NOT DETECTED; RMSF IgG Ab NOT DETECTED; RMSF IgM Ab NOT DETECTED
== END 2023-06-21 15:30 | disposition left against medical advice (07) | DRG 379 ==
LOC: ED 05:28 → INTOOBSV 07:35 → EDINP 07:35

== ENCOUNTER 2023-12-30 09:49 | Observation (INO) ==
[2023-12-30 11:11] LABS: Albumin Globulin Ratio 0.6 (0.9-2); BUN Creatinine Ratio 11.3 (10-20); Bilirubin,Total 7.6 mg/dl (0.2-1.0); Calcium 8.8 mg/dl (8.6-10.3); Creatinine Clr Calc Pharmacy 76.7 ml/min; Est GFR (Non-African American) 70.7 ml/min; Globulin 4.9 gm/dl (2.5-4.0); INR 1.3 (0.9-1.1); Partial Thromboplastin Ratio 1.2; Partial Thromboplastin Time 33 Seconds (21-31); Potassium 3.3 mmol/L (3.5-5.1); Prothrombin Time 13.7 Seconds (9.0-12.0); Total Protein 7.9 gm/dl (6.0-8.3)
[2023-12-30 11:17] LABS: Troponin I High Sensitivity 12.1 pg/ml (0-20)
--- NOTE | 2023-12-30 11:21 | Emergency Department Note ---
Impression & Plan Cirrhosis, Thrombocytopenia, Elevated LFTs, Hyperbilirubinemia ED Provider Note NAME: MARCELO ANGEL AGE: 58 SEX: Male INFORMANT: Patient ED PROVIDER(S): Rocco Grubbs MD CHIEF COMPLAINT: Hematuria PLAN: Disposition: Admitted Outpatient prescription management: none Referral: None MEDICAL DECISION MAKING: Patient presented because of thoughts that he had hematuria. Urinalysis revealed presence of bilirubin. LFTs were elevated and his bilirubin was significant elevated. This is worsened compared to prior. The patient does have thrombocytopenia which has worsened. CT imaging was performed and there is the morphology of cirrhosis as well as varices and splenomegaly. Radiology question some inflammatory change around the SMA. CT angiography of the abdomen and pelvis was performed. No significant issues were noted. Consultation was made with Dr. Montejo of GI. He felt the patient required EGD and further evaluation. Consultation was made with Dr. Koby Hernandez of the [facility] service. Patient was evaluated in the ER for further management. Care/management discussed with: nutrition manager Level of care consideration(s): After review of the information above and other included data, I feel the patient requires escalation of care to admission Triage Nursing notes: reviewed and agree them. Vital Signs: reviewed and remarkable for no significant abnormalities Additional History obtained from: none Chronic Medical/Social Conditions affecting care: Alcohol abuse Prior/ Outside/ External records reviewed: none Differential Diagnosis: Complication of alcohol use renal colic, UTI, appendicitis, diverticulitis, mesenteric ischemia, aortic pathology, infections, inflammatory bowel disease, PUD, biliary pathology, as well as other pathologies. Diagnostics, independently interpreted by me: ECG: Twelve-lead ECG reveals a normal sinus rhythm at 76 bpm. Poor R wave progression anteriorly. No ST elevation or depression Cardiac Monitoring: Cardiac monitoring ordered by me: The patient was placed on continuous cardiac monitoring and observed. It revealed a normal sinus rhythm at 72 beats per minute without ectopy or evidence of dysrhythmia. Medical decision rules: none Imaging studies: I refer you to the EMR for further details. HPI: 58 year old Male arrives for evaluation of abdominal pain and hematuria. This started about 4 months ago and is waxing and waning his abdominal pain on the right side seem to improve and then he developed hematuria this week. The patient noted the abdominal pain was severe but now is much improved. Patient notes having an outpatient ultrasound done by the primary office and he was told he has gallstones and was referred to general surgery. He was unable to make that appointment and has yet to be rescheduled. Due to the hematuria he presented today for evaluation. The patient has been prescribed no medication for relieving factors. Current pain is rated as 4/10. Patient does have a history of heavy alcohol use. Pt denies headache, fevers, chills, chest pain, breathing difficulties, back pain, melena, hematochezia, or other complaints. . PAST MEDICAL HISTORY: See Below, hypertension, A-fib PAST SURGICAL HISTORY: See Below, SOCIAL HISTORY: See Below, smoker HOME MEDICATIONS: See Below ALLERGIES: See Below VITALS: See Below PHYSICAL EXAMINATION: GENERAL: Awake, alert, nontoxic-appearing, in no distress HENT: Normocephalic, atraumatic. Oropharynx unremarkable. EYES: Normal conjunctiva. Sclera non-icteric. NECK: Inspection normal. Non-tender. Supple. No nuchal rigidity. FROM. No masses. RESPIRATORY: Clear to auscultation. No wheezes. No rales. Normal respiratory effort. CARDIAC: Normal rate. Normal rhythm. No murmurs. No rubs. Extremities warm and well perfused. Pulses equal. No JVD. GI: Soft, mild distended. Right upper and left lower tenderness to palpation. No rebound or guarding. No masses. RECTAL: Deferred. MUSCULOSKELETAL: Atraumatic. Chest examination reveals no tenderness. The back is symmetrical on inspection without obvious abnormality. There is no CVA tenderness to palpation. No joint edema. LOWER EXTREMITIES: Calves are equal size bilaterally and non-tender. No edema. No discoloration. NEURO: Normal sensorium. No sensory or motor deficits noted. SKIN: Multiple areas of secondary excoriation but no other rash or jaundice noted. PROCEDURES: none CRITICAL CARE: none OBSERVATION NOTE: none Past Med/Surg History Problem List (Updated 12/30/23 @ 13:53 by Deshawn Duvall PA-C) History of stroke Hematuria (Acute) Abdominal pain (Acute) Cholelithiasis Liver cirrhosis, alcoholic GIB (gastrointestinal bleeding) (Acute) Alcohol use (Acute) daily drinker Atrial fibrillation (Acute) Hematemesis Anxiety Tear of medial meniscus of left knee Encounter for pre-operative examination Headache Cervical pain (neck) Tobacco dependence 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-no current deficits Hypertension (Chronic) pt reports home readings range 180s/110-120s Medical History GERD (gastroesophageal reflux disease) Alcohol use Stroke Surgical History H/O endoscopic sinus surgery H/O nasal septoplasty History of open reduction and internal fixation (ORIF) procedure Family History Grandmother (Maternal) Diabetes Other No significant family history Denies family history of Ovarian cancer Prostate cancer Depression Heart disease Myocardial infarction Breast cancer Lung cancer Colorectal cancer Stroke Social History Smoking Status: Current every day smoker Tobacco Type: Cigarettes packs per day: 1; Cigarettes Per Day: smokes cigarettes 20 per day- if smokes cigars 1/2 pack- advised; Second Hand Exposure: No; Do You Dip or Chew Tobacco: No; Hx Alcohol Use: Yes Alcohol type: beer and hard liquor Alcohol Intake Frequency: 4 or More x per/Week Hx Substance Use: No Preferred Language: Georgian Communication Ability: Effective Visual Impairment: Limited 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: Normal Insert Operator Required: No Beliefs That Will Affect Care: None marital status: single Current Living Situation: Alone current occupational status: employed How many Children do You have: 0 Feels Safe at Home: Yes Childhood Exposure to Second-Hand Smoke: Yes Diet: regular caffeine: Yes during the past year weight has: remained stable Dental Care, Regularly: No Physical Activity Frequency: Daily Seatbelt Use: never Sunscreen Use: No Assistive Devices: Glasses Allergies Allergies Allergy/AdvReac Type Severity Reaction Status Date / Time bee venom protein (honey bee) Allergy Severe Anaphylaxis Verified 12/06/23 13:35 Home Meds Previous Rx's Medication Instructions Recorded losartan 25 mg tablet 25 mg PO DAILY #30 tabs 12/02/23 Results & Data (ED) Vital Signs Vital Signs - 24 hr 12/30/23 09:55 12/30/23 10:16 12/30/23 10:16 Temperature 36.9 C Temperature Source Temporal Artery Scan Pulse Rate 87 76 Pulse Rate [Apical] 76 Pulse Rate from SpO2 Sensor Respiratory Rate 18 18 18 Respiratory Effort / Characteristics Non-Labored Spontaneous Respiratory Depth Normal Respiratory Pattern Regular Blood Pressure 168/97 H Blood Pressure [Left Arm] 163/90 H Blood Pressure Mean 120 Blood Pressure Mean [Left Arm] 114 Blood Pressure Position Sitting Pulse Oximetry 99 97 97 Oxygen Delivery Method Room Air Room Air Room Air Sepsis Recent Fever Within 48 Hours No Sepsis New/Unexplained Change in Mental Status N/A Sepsis Action Taken by Nursing No Action Required 12/30/23 10:28 12/30/23 10:30 12/30/23 10:41 Temperature Temperature Source Pulse Rate 82 75 77 Pulse Rate [Apical] Pulse Rate from SpO2 Sensor 81 75 Respiratory Rate 16 21 Respiratory Effort / Characteristics Respiratory Depth Respiratory Pattern Blood Pressure Blood Pressure [Left Arm] Blood Pressure Mean Blood Pressure Mean [Left Arm] Blood Pressure Position Pulse Oximetry 97 97 Oxygen Delivery Method Sepsis Recent Fever Within 48 Hours Sepsis New/Unexplained Change in Mental Status Sepsis Action Taken by Nursing 12/30/23 11:00 12/30/23 11:14 12/30/23 11:14 Temperature Temperature Source Pulse Rate 80 78 Pulse Rate [Apical] Pulse Rate from SpO2 Sensor 78 76 Respiratory Rate 21 15 Respiratory Effort / Characteristics Respiratory Depth Respiratory Pattern Blood Pressure 180/108 H Blood Pressure [Left Arm] Blood Pressure Mean 147 Blood Pressure Mean [Left Arm] Blood Pressure Position Pulse Oximetry 96 99 Oxygen Delivery Method Sepsis Recent Fever Within 48 Hours Sepsis New/Unexplained Change in Mental Status Sepsis Action Taken by Nursing 12/30/23 11:30 12/30/23 12:30 12/30/23 12:53 Temperature Temperature Source Pulse Rate 75 62 Pulse Rate [Apical] Pulse Rate from SpO2 Sensor 77 Respiratory Rate 17 18 Respiratory Effort / Characteristics Respiratory Depth Respiratory Pattern Blood Pressure 180/103 H Blood Pressure [Left Arm] Blood Pressure Mean 119 Blood Pressure Mean [Left Arm] Blood Pressure Position Pulse Oximetry 97 Oxygen Delivery Method Sepsis Recent Fever Within 48 Hours Sepsis New/Unexplained Change in Mental Status Sepsis Action Taken by Nursing 12/30/23 12:53 12/30/23 13:00 12/30/23 13:00 Temperature Temperature Source Pulse Rate 72 71 Pulse Rate [Apical] Pulse Rate from SpO2 Sensor Respiratory Rate 17 19 Respiratory Effort / Characteristics Respiratory Depth Respiratory Pattern Blood Pressure 169/97 H Blood Pressure [Left Arm] Blood Pressure Mean 130 Blood Pressure Mean [Left Arm] Blood Pressure Position Pulse Oximetry Oxygen Delivery Method Sepsis Recent Fever Within 48 Hours Sepsis New/Unexplained Change in Mental Status Sepsis Action Taken by Nursing 12/30/23 14:38 12/30/23 15:00 12/30/23 15:01 Temperature Temperature Source Pulse Rate 70 85 81 Pulse Rate [Apical] Pulse Rate from SpO2 Sensor 68 87 79 Respiratory Rate 16 19 16 Respiratory Effort / Characteristics Respiratory Depth Respiratory Pattern Blood Pressure Blood Pressure [Left Arm] Blood Pressure Mean Blood Pressure Mean [Left Arm] Blood Pressure Position Pulse Oximetry 96 97 97 Oxygen Delivery Method Sepsis Recent Fever Within 48 Hours Sepsis New/Unexplained Change in Mental Status Sepsis Action Taken by Nursing 12/30/23 15:01 12/30/23 15:30 12/30/23 16:00 Temperature Temperature Source Pulse Rate 65 Pulse Rate [Apical] Pulse Rate from SpO2 Sensor 64 Respiratory Rate 15 Respiratory Effort / Characteristics Respiratory Depth Respiratory Pattern Blood Pressure 185/111 H 156/83 H Blood Pressure [Left Arm] Blood Pressure Mean 159 127 Blood Pressure Mean [Left Arm] Blood Pressure Position Pulse Oximetry 97 Oxygen Delivery Method Sepsis Recent Fever Within 48 Hours Sepsis New/Unexplained Change in Mental Status Sepsis Action Taken by Nursing 12/30/23 16:00 12/30/23 16:30 Temperature Temperature Source Pulse Rate 62 72 Pulse Rate [Apical] Pulse Rate from SpO2 Sensor 63 70 Respiratory Rate 15 17 Respiratory Effort / Characteristics Respiratory Depth Respiratory Pattern Blood Pressure Blood Pressure [Left Arm] Blood Pressure Mean Blood Pressure Mean [Left Arm] Blood Pressure Position Pulse Oximetry 97 97 Oxygen Delivery Method Sepsis Recent Fever Within 48 Hours Sepsis New/Unexplained Change in Mental Status Sepsis Action Taken by Nursing Laboratory Data 12/30/23 10:29 12/30/23 10:29 Lab Results 12/30/23 12/30/23 Range/Units 10:29 12:00 WBC 5.06 (4.8-10.8) K/ul RBC 3.16 L (4.70-6.10) M/uL Hgb 10.3 L (14.0-18.0) g/dl Hct 27.8 L (42.0-52.0) % MCV 88.0 (80.0-100.0) fL MCH 32.6 (25.0-34.0) pg MCHC 37.1 H (32.0-36.0) g/dL RDW Std Deviation 54.4 H (36.4-46.3) fL RDW Coeff of Jason 17.2 H (11.5-14.5) % Plt Count 37 L (130-400) K/uL Immature Gran % (Auto) 0.4 % Neut % (Auto) 57.5 % Lymph % (Auto) 23.1 % Bertie % (Auto) 15.6 % Eos % (Auto) 2.2 % Baso % (Auto) 1.2 % Neut # (Auto) 2.91 (1.40-6.50) K/uL Lymph # (Auto) 1.17 L (1.20-3.40) K/uL Bertie # (Auto) 0.79 H (0.11-0.59) K/uL Eos # (Auto) 0.11 (0.00-0.50) K/uL Baso # (Auto) 0.06 (0.00-0.20) K/uL Immature Gran # (Auto) 0.02 (0.01-0.20) K/uL Target Cells 2+ PT 13.7 H (9.0-12.0) Seconds INR 1.3 H (0.9-1.1) APTT 33 H (21-31) Seconds PTT Ratio 1.2 Sodium 136 (136-145) mmol/L Potassium 3.3 L (3.5-5.1) mmol/L Chloride 103 (98-107) mmol/L Carbon Dioxide 25 (21-32) mmol/L Anion Gap 8 (3-11) BUN 13 (6-23) mg/dl Creatinine 1.15 (0.6-1.4) mg/dl Est Cr Clr Drug Dosing 76.7 ml/min Est GFR ( Amer) 82.0 ml/min Est GFR (Non-Af Amer) 70.7 ml/min BUN/Creatinine Ratio 11.3 (10-20) Glucose 100 H (70-99(Fasting)) mg/dl Calcium 8.8 (8.6-10.3) mg/dl Iron 106 (35-175) mcg/dl TIBC 198 L (250-450) mcg/dl Unsaturated IBC 92 L (155-355) mcg/dl Transferrin % Sat 54 H (20-50) % Ferritin 388.0 (8-388) ng/ml Total Bilirubin 7.6 H (0.2-1.0) mg/dl AST 102 H (13-39) U/L ALT 27 (7-52) U/L Alkaline Phosphatase 188 H (34-104) U/L Troponin I High Sens 12.1 (0-20) pg/ml Total Protein 7.9 (6.0-8.3) gm/dl Albumin 3.0 L (3.4-5.0) gm/dl Globulin 4.9 H (2.5-4.0) gm/dl Albumin/Globulin Ratio 0.6 L (0.9-2) Lipase 102 H (11-82) U/L Urine Color Dark Yellow Urine Appearance Clear (Clear) Urine pH 7.5 (4.5-7.5) Ur Specific [place] 1.017 (1.000-1.030) Urine Protein Trace H (Negative) Urine Glucose (UA) Negative (Negative) Urine Ketones Negative (Negative) Urine Blood Negative (Negative) Urine Nitrite Negative (Negative) Urine Bilirubin 2+ H (Negative) Urine Urobilinogen Positive H (Negative) Ur Leukocyte Esterase Trace H (Negative) Urine WBC (Auto) 0-5 (0-5) /hpf Urine RBC (Auto) 0-2 (0-2) /hpf U Hyaline Cast (Auto) 0-2 (0-2) /lpf U Epithel Cells (Auto) 0-2 (0-2) /hpf Urine Bacteria (Auto) None Seen (None Seen) Administered Medications Amlodipine Besylate (Amlodipine Besylate 5 Mg Tab) 5 mg PO QAM [facility] Stop: 01/29/24 15:44 Last Admin: 12/30/23 15:45 Dose: 5 mg Documented By: DS Discontinued Medications Ioversol (Optiray 320 125ml) 120 ml IV ONCE ONE Stop: 12/30/23 14:06 Last Admin: 12/30/23 14:00 Dose: 120 ml Documented By: BRM Imaging Data Radiologist's Impression: Abdomen/Pelvis CT 12/30/23 10:36 CT SCAN OF THE ABDOMEN AND PELVIS WITHOUT IV CONTRAST CLINICAL HISTORY: Generalized abdominal pain. Hematuria. COMPARISON STUDY: Abdominal ultrasound dated 12/10/2023. TECHNIQUE: CT scan of the abdomen and pelvis is performed from the lung bases to the proximal femora. Images are reviewed in the axial, sagittal, and coronal planes. IV contrast was not administered for this examination. A dose lowering technique was utilized adhering to the principles of ALARA. CT DOSE: 1112.64 mGy.cm FINDINGS: Lung bases: The heart is enlarged and without pericardial effusion. There are coronary artery calcifications. The lung bases are clear noting dependent atelectasis. There is a small hiatal hernia. Esophageal varices are noted. Liver: The unenhanced liver is mildly enlarged, cirrhotic in morphology, and heterogeneous in attenuation. There is no intrahepatic biliary ductal dilatation. An 11 mm cyst is noted in the inferior right lobe. Gallbladder: There are calcified gallstones with no CT evidence of acute cholecystitis. Spleen: Mildly enlarged measuring 13.6 cm in length. Pancreas: Unremarkable. Adrenal glands: Unremarkable. Kidneys: The unenhanced kidneys are normal in size and without hydronephrosis. There are at least 2 nonobstructing left renal calculi which measure up to 2 mm. No right renal calculi are identified and no ureteral stone is seen. There is no evidence of contour deforming renal mass lesion. Abdominal vasculature: The abdominal aorta is normal in course and caliber noting moderate atherosclerotic calcification. There are perigastric collaterals. Bowel: There is no bowel obstruction. There are duodenal diverticula without CT evidence of acute diverticulitis. The appendix is well-visualized and normal. Peritoneum: There is trace abdominopelvic ascites. No intraperitoneal free air is identified. There is a fat and fluid containing umbilical hernia. There is nonspecific infiltration identified from the celiac trunk and superior mesenteric artery. Lymphadenopathy: None. Pelvic viscera: The prostate gland is enlarged and heterogeneous. The bladder wall is thickened/trabeculated indicating chronic outlet obstruction. A fat- containing groin hernia is noted on the left. Skeletal structures: No lytic or blastic lesions are seen. There is mild lumbosacral spondylosis. Sclerotic change is noted in the sacroiliac joints. IMPRESSION: 1. The liver is cirrhotic in morphology and heterogeneous in attenuation. 2. Trace abdominopelvic ascites, mild splenomegaly, esophageal varices, and upper abdominal collaterals indicate portal hypertension. 3. Cholelithiasis. 4. There is nonspecific infiltration seen around the celiac trunk and superior mesenteric artery. This should be correlated with clinical and laboratory findings. If there is clinical concern for vascular pathology a CT angiogram could be considered. 5. Left-sided nephrolithiasis. 6. Cardiomegaly. 7. Additional findings as above. ACT 112: Negative or not required by law. Electronically signed by: Surinder Crowe M.D. 12/30/2023 12:00 PM Abdomen/Pelvis CTA 12/30/23 13:36 CT angio abdomen pelvis w con CLINICAL HISTORY: 58 years-old Male with eval SMA, celiac inflammation acute mid abdominal pain COMPARISON STUDY: CT abdomen and pelvis of same day at 11:02 AM TECHNIQUE: Following the IV administration of 120 cc of Optiray, CT angiogram of the abdomen and pelvis was performed from the lung bases the proximal femora. Images are reviewed in the axial, sagittal, and coronal planes. 3-D MIPS images are created and assessed. All measurements were obtained according to NASCET criteria. IV contrast was administered without complication. A dose lowering technique was utilized adhering to the principles of ALARA. CT DOSE: 1211.7 mGy.cm FINDINGS: CTA: The abdominal aorta is normal in course and caliber noting moderate atherosclerotic calcification. There are perigastric collaterals. No abdominal aortic aneurysm or dissection. Patent iliac and imaged femoral arteries. Celiac trunk, superior and inferior mesenteric arteries are patent. The renal arteries are patent. There are 2 accessory right-sided renal arteries with at least moderate stenosis at the origin of the accessory renal artery on image [address] ABDOMEN AND PELVIS: Lung bases: The heart is enlarged and without pericardial effusion. There are coronary artery calcifications. The lung bases are clear noting dependent atelectasis. There is a small hiatal hernia. Esophageal varices are noted. Liver: The liver is mildly enlarged, cirrhotic in morphology, and heterogeneous in attenuation. There is no intrahepatic biliary ductal dilatation. Ill-defined area of increased attenuation within the posterior right hepatic lobe on image 19 series 2 measuring 1.8 cm favors vascular shunting with additional similar appearing areas noted within the left lobe of the liver. An 11 mm cyst is noted in the inferior right lobe. Gallbladder: There are calcified gallstones with no CT evidence of acute cholecystitis. Spleen: Mildly enlarged measuring 13.6 cm in length. Pancreas: Unremarkable. Adrenal glands: Unremarkable. Kidneys: The kidneys are normal in size and without hydronephrosis. There are at least 2 nonobstructing left renal calculi which measure up to 2 mm. No right renal calculi are identified and no ureteral stone is seen. Bowel: There is no bowel obstruction. There are duodenal diverticula without CT evidence of acute diverticulitis. The appendix is well-visualized and normal. Peritoneum: There is trace abdominopelvic ascites. No intraperitoneal free air is identified. There is a fat and fluid containing umbilical hernia. There is nonspecific infiltration identified from the celiac trunk and superior mesenteric artery. Lymphadenopathy: None. Pelvic viscera: The prostate gland is enlarged and heterogeneous. The bladder wall is thickened/trabeculated indicating chronic outlet obstruction. A fat- containing groin hernia is noted on the left. Skeletal structures: No lytic or blastic lesions are seen. There is mild lumbosacral spondylosis. Sclerotic change is noted in the sacroiliac joints. IMPRESSION: 1. Atherosclerosis without aneurysm, dissection, high-grade stenosis or arterial occlusion. 2. Cirrhosis with stigmata of portal venous hypertension. 3. Cholelithiasis. 4. Left-sided nephrolithiasis. 5. No bowel obstruction or bowel wall thickening. 6. Additional findings as above. ACT 112: Negative or not required by law. The above report was generated using voice recognition software. It may contain grammatical, syntax or spelling errors. Electronically signed by: Clifford Lazo M.D. 12/30/2023 2:49 PM Discharge Plan Visit Data Chief Complaint: Hematuria Stated Complaint: REF BY DOC,ABDOMINAL PAIN,GALLSTONES ED Provider: Rocco Grubbs Discharge Problem: Cirrhosis, Thrombocytopenia, Elevated LFTs, Hyperbilirubinemia Forms Stand Alone Forms: [facility] Prescriptions Prescriptions: No Action losartan 25 mg tablet 25 mg PO DAILY Qty: 30 2RF Referrals Referrals: Kathy Jung MD [Primary Care Provider] -
[2023-12-30 11:36] LABS: Hematocrit (blood only) 27.8 % (42.0-52.0); Hemoglobin 10.3 g/dl (14.0-18.0); Mean Corpuscular Hemoglobin 32.6 pg (25.0-34.0); Mean Corpuscular Hgb Conc 37.1 g/dL (32.0-36.0); Platelet Count 37 K/uL (130-400); RDW Coefficient of Variation 17.2 % (11.5-14.5); RDW Standard Deviation 54.4 fL (36.4-46.3); Red Blood Count 3.16 M/uL (4.70-6.10); White Blood Count 5.06 K/ul (4.8-10.8)
[2023-12-30 11:37] LABS: Basophils # (auto) 0.06 K/uL (0.00-0.20); Basophils % (auto) 1.2 %; Eosinophils # (auto) 0.11 K/uL (0.00-0.50); Eosinophils % (auto) 2.2 %; Immature Granulocytes # (auto) 0.02 K/uL (0.01-0.20); Immature Granulocytes % (auto) 0.4 %; Lymphocytes # (auto) 1.17 K/uL (1.20-3.40); Lymphocytes % (auto) 23.1 %; Monocytes # (auto) 0.79 K/uL (0.11-0.59); Monocytes % (auto) 15.6 %; Neutrophils # (auto) 2.91 K/uL (1.40-6.50); Neutrophils % (auto) 57.5 %; Target Cells 2+
--- NOTE | 2023-12-30 12:02 | CT Scan Report ---
CT SCAN OF THE ABDOMEN AND PELVIS WITHOUT IV CONTRAST CLINICAL HISTORY: Generalized abdominal pain. Hematuria. COMPARISON STUDY: Abdominal ultrasound dated 12/10/2023. TECHNIQUE: CT scan of the abdomen and pelvis is performed from the lung bases to the proximal femora. Images are reviewed in the axial, sagittal, and coronal planes. IV contrast was not administered for this examination. A dose lowering technique was utilized adhering to the principles of ALARA. CT DOSE: 1112.64 mGy.cm FINDINGS: Lung bases: The heart is enlarged and without pericardial effusion. There are coronary artery calcifi cations. The lung bases are clear noting dependent atelectasis. There is a small hiatal hernia. Esoph ageal varices are noted. Liver: The unenhanced liver is mildly enlarged, cirrhotic in morphology, and heterogeneous in attenua tion. There is no intrahepatic biliary ductal dilatation. An 11 mm cyst is noted in the inferior righ t lobe. Gallbladder: There are calcified gallstones with no CT evidence of acute cholecystitis. Spleen: Mildly enlarged measuring 13.6 cm in length. Pancreas: Unremarkable. Adrenal glands: Unremarkable. Kidneys: The unenhanced kidneys are normal in size and without hydronephrosis. There are at least 2 n onobstructing left renal calculi which measure up to 2 mm. No right renal calculi are identified and no ureteral stone is seen. There is no evidence of contour deforming renal mass lesion. Abdominal vasculature: The abdominal aorta is normal in course and caliber noting moderate atheroscle rotic calcification. There are perigastric collaterals. Bowel: There is no bowel obstruction. There are duodenal diverticula without CT evidence of acute div erticulitis. The appendix is well-visualized and normal. Peritoneum: There is trace abdominopelvic ascites. No intraperitoneal free air is identified. There i s a fat and fluid containing umbilical hernia. There is nonspecific infiltration identified from the celiac trunk and superior mesenteric artery. Lymphadenopathy: None. Pelvic viscera: The prostate gland is enlarged and heterogeneous. The bladder wall is thickened/trabe culated indicating chronic outlet obstruction. A fat-containing groin hernia is noted on the left. Skeletal structures: No lytic or blastic lesions are seen. There is mild lumbosacral spondylosis. Scl erotic change is noted in the sacroiliac joints. IMPRESSION: 1. The liver is cirrhotic in morphology and heterogeneous in attenuation. 2. Trace abdominopelvic ascites, mild splenomegaly, esophageal varices, and upper abdominal collatera ls indicate portal hypertension. 3. Cholelithiasis. 4. There is nonspecific infiltration seen around the celiac trunk and superior mesenteric artery. Thi s should be correlated with clinical and laboratory findings. If there is clinical concern for vascul ar pathology a CT angiogram could be considered. 5. Left-sided nephrolithiasis. 6. Cardiomegaly. 7. Additional findings as above. ACT 112: Negative or not required by law. Electronically signed by: Surinder Crowe M.D. 12/30/2023 12:00 PM
[2023-12-30 12:16] LABS: Appearance Urine Clear (Clear); Bacteria Urine Automated None Seen (None Seen); Bilirubin Urine 2+ (Negative); Blood Urine Negative (Negative); Cast Urine Automated 0-2 /lpf (0-2); Color Urine Dark Yellow; Epithelial Cell Urine Auto 0-2 /hpf (0-2); Glucose Urine UA Negative (Negative); Ketones Urine Negative (Negative); Leukocyte Esterase Urine Trace (Negative); Nitrite Urine Negative (Negative); Protein Urine Trace (Negative); RBC Urine Automated 0-2 /hpf (0-2); Specific Gravity Urine 1.017 (1.000-1.030); Urobilinogen Urine Positive (Negative); WBC Urine Automated 0-5 /hpf (0-5); pH Urine 7.5 (4.5-7.5)
--- NOTE | 2023-12-30 13:47 | History & Physical Report ---
Date of Service December 30, 2023 Assessment & Plan (1) Abdominal pain: Plan: Worsening abdominal pain x 4 months with an acute exacerbation over the last couple days Patient reports it feels like someone "shot him in the guts"; he also endorses nausea and vomiting A/P CT revealed nonspecific infiltration around the celiac trunk and superior mesenteric artery A/P CTA ordered, pending Troponin WNL x 1 A.m. CBC, BMP (2) Hematuria: Plan: Hgb 10.3 on arrival Trend H&H (3) Alcohol use: Plan: Current everyday alcohol user (4) Atrial fibrillation: (5) Tobacco dependence: (6) Hypertension: Plan: Continue losartan (7) Anxiety: (8) History of stroke: Plan: In 2017 with right-sided weakness; no other residual deficits (9) Liver cirrhosis, alcoholic: Plan Disposition: History of Present Illness Chief Complaint: Hematuria Primary Care Provider: Kathy Jung MD Tobi is a 58-year-old male with PMH of HTN, stroke, tobacco dependence, anxiety, atrial fibrillation, alcohol use, GI bleed, and alcoholic liver cirrhosis. He presented for hematuria, abdominal pain, N/V, and gallstones on 12/29. He reports that it feels like someone "shot him in the guts". Symptoms have been ongoing x 4 months, with an acute exacerbation over the last couple days. His abdominal pain is now radiating throughout his entire abdomen. Patient is hypertensive at 169/97 at time of admission. ED course: ROS: Patient endorses Patient denies Allergies Allergy/AdvReac Type Severity Reaction Status Date / Time bee venom protein (honey bee) Allergy Severe Anaphylaxis Verified 12/06/23 13:35 Home Medications Medication Instructions Recorded Confirmed Type losartan 25 mg tablet 25 mg PO DAILY #30 tabs 12/02/23 12/30/23 Rx Past Med/Surg History Problem List (Updated 12/30/23 @ 13:53 by Deshawn Duvall PA-C) History of stroke Hematuria (Acute) Abdominal pain (Acute) Cholelithiasis Liver cirrhosis, alcoholic GIB (gastrointestinal bleeding) (Acute) Alcohol use (Acute) daily drinker Atrial fibrillation (Acute) Hematemesis Anxiety Tear of medial meniscus of left knee Encounter for pre-operative examination Headache Cervical pain (neck) Tobacco dependence 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-no current deficits Hypertension (Chronic) pt reports home readings range 180s/110-120s Medical History GERD (gastroesophageal reflux disease) Alcohol use Stroke Surgical History H/O endoscopic sinus surgery H/O nasal septoplasty History of open reduction and internal fixation (ORIF) procedure Family History Grandmother (Maternal) Diabetes Other No significant family history Denies family history of Ovarian cancer Prostate cancer Depression Heart disease Myocardial infarction Breast cancer Lung cancer Colorectal cancer Stroke Social History Smoking Status: Current every day smoker Tobacco Type: Cigarettes packs per day: 1; Cigarettes Per Day: smokes cigarettes 20 per day- if smokes cigars 1/2 pack- advised; Second Hand Exposure: No; Do You Dip or Chew Tobacco: No; Hx Alcohol Use: Yes Alcohol type: beer and hard liquor Alcohol Intake Frequency: 4 or More x per/Week Hx Substance Use: No Preferred Language: Faroese Communication Ability: Effective Visual Impairment: Limited 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: Normal Facility Assistant Required: No Beliefs That Will Affect Care: None marital status: single Current Living Situation: Alone current occupational status: employed How many Children do You have: 0 Feels Safe at Home: Yes Childhood Exposure to Second-Hand Smoke: Yes Diet: regular caffeine: Yes during the past year weight has: remained stable Dental Care, Regularly: No Physical Activity Frequency: Daily Seatbelt Use: never Sunscreen Use: No Assistive Devices: Glasses Review of Systems Review of Systems: See HPI above Physical Exam Physical Exam: General: no acute distress; non-toxic appearing; well-nourished; cooperative HEENT: normocephalic, atraumatic; no scleral icterus; PERRLA w/ EOMs intact; moist mucus membrane; vision and hearing grossly intact Neck: supple; no lymphadenopathy; trachea midline Skin: warm, dry without signs of tenting; no cyanosis; no rashes, bruising, lesions, or erythema noted CV: chest wall NTP; RRR; S1/S2 normal; no murmurs/rubs/gallops; pulses intact and symmetric at radial, DP, and PT Lungs: no acute respiratory distress; symmetrical chest wall expansion; clear breath sounds across all lung rubio w/o adventitious sounds; no wheezing ABD: Soft, NTP; BS present; no rebound/guarding; no distention MSK: no tics or fasciculations; no edema noted in the LEs b/l, nonerythematous Neuro: A&Ox3; normal mood and affect; fluent speech; no focal deficits; sensation grossly intact in the LEs b/l Results & Data Results & Data Vital Signs (Past 12 Hours) Vital Signs Temp Pulse Pulse Resp BP BP Pulse Ox 12/30/23 13:00 71 19 12/30/23 13:00 169/97 H 12/30/23 12:53 72 17 12/30/23 12:53 180/103 H 12/30/23 12:30 62 18 12/30/23 11:30 75 17 97 12/30/23 11:14 78 15 99 12/30/23 11:14 180/108 H 12/30/23 11:00 80 21 96 12/30/23 10:41 77 12/30/23 10:30 75 21 97 12/30/23 10:28 82 16 97 12/30/23 10:16 76 18 97 12/30/23 10:16 76 18 163/90 H 97 12/30/23 09:55 36.9 C 87 18 168/97 H 99 O2 Del Method 12/30/23 13:00 12/30/23 13:00 12/30/23 12:53 12/30/23 12:53 12/30/23 12:30 12/30/23 11:30 12/30/23 11:14 12/30/23 11:14 12/30/23 11:00 12/30/23 10:41 12/30/23 10:30 12/30/23 10:28 12/30/23 10:16 Room Air 12/30/23 10:16 Room Air 12/30/23 09:55 Room Air Laboratory Results Abnormal lab results 12/30/23 12/30/23 Range/Units 10:29 12:00 RBC 3.16 L (4.70-6.10) M/uL Hgb 10.3 L (14.0-18.0) g/dl Hct 27.8 L (42.0-52.0) % MCHC 37.1 H (32.0-36.0) g/dL RDW Std Deviation 54.4 H (36.4-46.3) fL RDW Coeff of Jason 17.2 H (11.5-14.5) % Plt Count 37 L (130-400) K/uL Lymph # (Auto) 1.17 L (1.20-3.40) K/uL Spencer # (Auto) 0.79 H (0.11-0.59) K/uL PT 13.7 H (9.0-12.0) Seconds INR 1.3 H (0.9-1.1) APTT 33 H (21-31) Seconds Potassium 3.3 L (3.5-5.1) mmol/L Glucose 100 H (70-99(Fasting)) mg/dl Total Bilirubin 7.6 H (0.2-1.0) mg/dl AST 102 H (13-39) U/L Alkaline Phosphatase 188 H (34-104) U/L Albumin 3.0 L (3.4-5.0) gm/dl Globulin 4.9 H (2.5-4.0) gm/dl Albumin/Globulin Ratio 0.6 L (0.9-2) Lipase 102 H (11-82) U/L Urine Protein Trace H (Negative) Urine Bilirubin 2+ H (Negative) Urine Urobilinogen Positive H (Negative) Ur Leukocyte Esterase Trace H (Negative) Diagnostic Findings Abdomen/Pelvis CT 12/30/23 10:36 CT SCAN OF THE ABDOMEN AND PELVIS WITHOUT IV CONTRAST CLINICAL HISTORY: Generalized abdominal pain. Hematuria. COMPARISON STUDY: Abdominal ultrasound dated 12/10/2023. TECHNIQUE: CT scan of the abdomen and pelvis is performed from the lung bases to the proximal femora. Images are reviewed in the axial, sagittal, and coronal planes. IV contrast was not administered for this examination. A dose lowering technique was utilized adhering to the principles of ALARA. CT DOSE: 1112.64 mGy.cm FINDINGS: Lung bases: The heart is enlarged and without pericardial effusion. There are coronary artery calcifications. The lung bases are clear noting dependent atelectasis. There is a small hiatal hernia. Esophageal varices are noted. Liver: The unenhanced liver is mildly enlarged, cirrhotic in morphology, and heterogeneous in attenuation. There is no intrahepatic biliary ductal dilatation. An 11 mm cyst is noted in the inferior right lobe. Gallbladder: There are calcified gallstones with no CT evidence of acute cholecystitis. Spleen: Mildly enlarged measuring 13.6 cm in length. Pancreas: Unremarkable. Adrenal glands: Unremarkable. Kidneys: The unenhanced kidneys are normal in size and without hydronephrosis. There are at least 2 nonobstructing left renal calculi which measure up to 2 mm. No right renal calculi are identified and no ureteral stone is seen. There is no evidence of contour deforming renal mass lesion. Abdominal vasculature: The abdominal aorta is normal in course and caliber noting moderate atherosclerotic calcification. There are perigastric collaterals. Bowel: There is no bowel obstruction. There are duodenal diverticula without CT evidence of acute diverticulitis. The appendix is well-visualized and normal. Peritoneum: There is trace abdominopelvic ascites. No intraperitoneal free air is identified. There is a fat and fluid containing umbilical hernia. There is nonspecific infiltration identified from the celiac trunk and superior mesenteric artery. Lymphadenopathy: None. Pelvic viscera: The prostate gland is enlarged and heterogeneous. The bladder wall is thickened/trabeculated indicating chronic outlet obstruction. A fat- containing groin hernia is noted on the left. Skeletal structures: No lytic or blastic lesions are seen. There is mild lumbosacral spondylosis. Sclerotic change is noted in the sacroiliac joints. IMPRESSION: 1. The liver is cirrhotic in morphology and heterogeneous in attenuation. 2. Trace abdominopelvic ascites, mild splenomegaly, esophageal varices, and upper abdominal collaterals indicate portal hypertension. 3. Cholelithiasis. 4. There is nonspecific infiltration seen around the celiac trunk and superior mesenteric artery. This should be correlated with clinical and laboratory findings. If there is clinical concern for vascular pathology a CT angiogram could be considered. 5. Left-sided nephrolithiasis. 6. Cardiomegaly. 7. Additional findings as above. ACT 112: Negative or not required by law. Electronically signed by: Surinder Crowe M.D. 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 Seen at the bedside. RReports he was following with his PCP for hematospermia, hematuria, and R abdominal pain. No abdominal pain at tiem of bedside visit. Last week had a GI illness with vomiting several times a day, bile/green but no black/bloody content. No diarrhea. Never had a GI. Had high iron levels in 2019. has not followed up since. Iron levels went down 'after they cleaned me out' and hasn't followed up since. Attributes a stroke subsequently to this. Lacunar stroke, notes he always has blood pressure problems. Is not taking anythign from losartan. Tried losartan 'didn't work.' 'Everyone tries to take the blood pressure down, it just doesn't work' Drinks ETOH every night. Last drink yesterday 3pm. No history of withdrawal. Last went 4-5 days without ETOH due to his abdominal pain last week, no shakes/sweats/tremors/withdrawal. No history of seizures. Notes he drinks mroe on weekends due to [place]. No interest in cutting back on alcohol. "No interest. Helps me relax." 1 mixed drink in the evenings, on Saturdays drinks most of the day. Would like a nicotine patch. Medical History: Reviewed Medications: Reviewed Surgical History: Reviewed Family history: Reviewed Allergies: Reviewed NKDA. Allergic to bee stings. Social History: ETOH as noted. Tobacco. Requests packs Code Status: Full Abdominal pain 4 months of intermittent abdominal pain, improving after admission to the ER CT: CTA: GI consulted. EGD planned however this cannot be performed until platelets are greater than 50. Patient has history of chronic thrombocytopenia. Protonix IV twice daily continued History of hematemesis Last EGD was scheduled for 06/2023 however patient left AMA at that time prior to completion Thrombocytopenia Suspected due to cirrhosis and alcoholic suppression Alcohol abuse Patient not interested in cessation Porphyria cutanea tarda With history of phlebotomy and ferritin levels greater than 600 hepatitis C screening and HIV testing negative in both 2018 and 2023 Repeat ferritin pending. Performed levels added, these should be performed annually HFE testing not available Hematuria, intermittent over 4 months - w/ thrombocytospenia as noted Hypertension Patient has been prescribed but has not started losartan. History of CVA Stroke With history of left lacunar pontine infarct PG Care Time/CCT Total # of Minutes Spent Total Time Spent with Patient: Total time spent is greater than 50% in coordination of care (as documented) at patient's floor/unit and/or counseling patient: Coding Diagnoses Abdominal pain R10.9 Hematuria R31.9 Alcohol use Z78.9 Atrial fibrillation I48.91 Tobacco dependence F17.200 Hypertension I10 Anxiety F41.9 History of stroke Z86.73 Liver cirrhosis, alcoholic K70.30
--- NOTE | 2023-12-30 13:59 | Gastrointestinal Consultation ---
Date of Consultation December 30, 2023 Assessment & Plan (1) Abdominal pain: (2) Liver cirrhosis, alcoholic: Plan 58 year old male with history of alcohol abuse and cirrhosis, presented to the ED with 4 month complaints of nausea, vomiting, abdominal pain. - will plan to keep NPO after midnight tonight. - as long as platelets are above 50 tomorrow, will plan for EGD to further evaluate. - start protonix 40mg IV bid. Supervising Physician Co-Signing Physician Notes Agree with WILI Zhao as above Interviewed and examined patient and agree with above Abd: Soft, NT, ND, +BS Continue current therapy and supportive care Proceed with EGD in AM if platelet count over 50 History of Present Illness Reason for Consultation: abdominal pain Requesting Physician: Rocco Grubbs MD History of Present Illness Patient is a 58 year old male with history of alcohol abuse, cirrhosis, who presented to the ED with complaints of nausea, vomiting, and abdominal pain. He has been noncompliant with following up on medical issues. He tells me that he has had symptoms for months. He tells me that pain is diffuse. ER had called us to evaluate the patient given his medical history and symptoms. He tells me that his last drink was 2 days ago. He tells me he drinks half a water bottle filled with rum when he does drink. no other GI concerns at this time. 12/30/23 hgb 10.3, platelets 37, INR 1.3, T bili 7.6, AST 102, ALT 27, ALK 188, Lipase 102. CT 12/30/23 The liver is cirrhotic in morphology and heterogeneous in attenuation. 2. Trace abdominopelvic ascites, mild splenomegaly, esophageal varices, and upper abdominal collaterals indicate portal hypertension. 3. Cholelithiasis. 4. There is nonspecific infiltration seen around the celiac trunk and superior mesenteric artery. This should be correlated with clinical and laboratory findings. If there is clinical concern for vascular pathology a CT angiogram could be considered. 5. Left-sided nephrolithiasis. 6. Cardiomegaly. Allergies Allergy/AdvReac Type Severity Reaction Status Date / Time bee venom protein (honey bee) Allergy Severe Anaphylaxis Verified 12/06/23 13:35 Home Medications Medication Instructions Recorded Confirmed Type losartan 25 mg tablet 25 mg PO DAILY #30 tabs 12/02/23 12/30/23 Rx Patient History Medical History GERD (gastroesophageal reflux disease) Alcohol use Stroke Surgical History H/O endoscopic sinus surgery H/O nasal septoplasty History of open reduction and internal fixation (ORIF) procedure Family History Grandmother (Maternal) Diabetes Other No significant family history Denies family history of Ovarian cancer Prostate cancer Depression Heart disease Myocardial infarction Breast cancer Lung cancer Colorectal cancer Stroke Social History Smoking Status: Current every day smoker Tobacco Type: Cigarettes packs per day: 1; Cigarettes Per Day: smokes cigarettes 20 per day- if smokes cigars 1/2 pack- advised; Second Hand Exposure: No; Do You Dip or Chew Tobacco: No; Hx Alcohol Use: Yes Alcohol type: beer and hard liquor Alcohol Intake Frequency: 4 or More x per/Week Hx Substance Use: No Preferred Language: Uzbek Communication Ability: Effective Visual Impairment: Limited 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: Normal 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 Gastrointestinal (Abdomen): soft, epigastric tenderness on exam, no guarding. Psychiatric: A+Ox3, euthymic affect Results & Data Vital Signs (Past 12 Hours) Vital Signs Temp Pulse Pulse Resp BP BP Pulse Ox 12/30/23 13:00 71 19 12/30/23 13:00 169/97 H 12/30/23 12:53 72 17 12/30/23 12:53 180/103 H 12/30/23 12:30 62 18 12/30/23 11:30 75 17 97 12/30/23 11:14 78 15 99 05/23/24 11:14 180/108 H 12/30/23 11:00 80 21 96 12/30/23 10:41 77 12/30/23 10:30 75 21 97 12/30/23 10:28 82 16 97 12/30/23 10:16 76 18 97 12/30/23 10:16 76 18 163/90 H 97 12/30/23 09:55 98.4 F 87 18 168/97 H 99 O2 Del Method 12/30/23 13:00 12/30/23 13:00 12/30/23 12:53 12/30/23 12:53 12/30/23 12:30 12/30/23 11:30 12/30/23 11:14 12/30/23 11:14 12/30/23 11:00 12/30/23 10:41 12/30/23 10:30 12/30/23 10:28 12/30/23 10:16 Room Air 12/30/23 10:16 Room Air 12/30/23 09:55 Room Air Coding Level of Care Code 47295 OFFICE CONSULT LVL 40M Diagnoses Abdominal pain R10.9 Liver cirrhosis, alcoholic K70.30
[2023-12-30] MEDS: OPTIRAY 320 125ml IV ONE (14:00)
--- NOTE | 2023-12-30 14:51 | CT Scan Report ---
CT angio abdomen pelvis w con CLINICAL HISTORY: 58 years-old Male with eval SMA, celiac inflammation acute mid abdominal pain COMPARISON STUDY: CT abdomen and pelvis of same day at 11:02 AM TECHNIQUE: Following the IV administration of 120 cc of Optiray, CT angiogram of the abdomen and pelv is was performed from the lung bases the proximal femora. Images are reviewed in the axial, sagittal, and coronal planes. 3-D MIPS images are created and assessed. All measurements were obtained accordi ng to NASCET criteria. IV contrast was administered without complication. A dose lowering technique was utilized adhering to the principles of ALARA. CT DOSE: 1211.7 mGy.cm FINDINGS: CTA: The abdominal aorta is normal in course and caliber noting moderate atherosclerotic calcification. Th ere are perigastric collaterals. No abdominal aortic aneurysm or dissection. Patent iliac and imaged femoral arteries. Celiac trunk, superior and inferior mesenteric arteries are patent. The renal arter ies are patent. There are 2 accessory right-sided renal arteries with at least moderate stenosis at t he origin of the accessory renal artery on image [address] ABDOMEN AND PELVIS: Lung bases: The heart is enlarged and without pericardial effusion. There are coronary artery calcifi cations. The lung bases are clear noting dependent atelectasis. There is a small hiatal hernia. Esoph ageal varices are noted. Liver: The liver is mildly enlarged, cirrhotic in morphology, and heterogeneous in attenuation. There is no intrahepatic biliary ductal dilatation. Ill-defined area of increased attenuation within the p osterior right hepatic lobe on image 19 series 2 measuring 1.8 cm favors vascular shunting with addit ional similar appearing areas noted within the left lobe of the liver. An 11 mm cyst is noted in the inferior right lobe. Gallbladder: There are calcified gallstones with no CT evidence of acute cholecystitis. Spleen: Mildly enlarged measuring 13.6 cm in length. Pancreas: Unremarkable. Adrenal glands: Unremarkable. Kidneys: The kidneys are normal in size and without hydronephrosis. There are at least 2 nonobstructi ng left renal calculi which measure up to 2 mm. No right renal calculi are identified and no ureteral stone is seen. Bowel: There is no bowel obstruction. There are duodenal diverticula without CT evidence of acute div erticulitis. The appendix is well-visualized and normal. Peritoneum: There is trace abdominopelvic ascites. No intraperitoneal free air is identified. There i s a fat and fluid containing umbilical hernia. There is nonspecific infiltration identified from the celiac trunk and superior mesenteric artery. Lymphadenopathy: None. Pelvic viscera: The prostate gland is enlarged and heterogeneous. The bladder wall is thickened/trabe culated indicating chronic outlet obstruction. A fat-containing groin hernia is noted on the left. Skeletal structures: No lytic or blastic lesions are seen. There is mild lumbosacral spondylosis. Scl erotic change is noted in the sacroiliac joints. IMPRESSION: 1. Atherosclerosis without aneurysm, dissection, high-grade stenosis or arterial occlusion. 2. Cirrhosis with stigmata of portal venous hypertension. 3. Cholelithiasis. 4. Left-sided nephrolithiasis. 5. No bowel obstruction or bowel wall thickening. 6. Additional findings as above. ACT 112: Negative or not required by law. The above report was generated using voice recognition software. It may contain grammatical, syntax o r spelling errors. Electronically signed by: Clifford Lazo M.D. 12/30/2023 2:49 PM
--- NOTE | 2023-12-30 15:30 | History & Physical Report ---
Date of Service December 30, 2023 Assessment & Plan (1) Abdominal pain: Plan: Abdominal pain 4 months of intermittent abdominal pain, improving after admission to the ER CTA:1. Atherosclerosis without aneurysm, dissection, high-grade stenosis or arterial occlusion. 2. Cirrhosis with stigmata of portal venous hypertension.3. Cholelithiasis.4. Left-sided nephrolithiasis.5. No bowel obstruction or bowel wall thickening. GI consulted. EGD planned however this cannot be performed until platelets are greater than 50. Patient has history of chronic thrombocytopenia. Protonix IV twice daily continued With chronic alcohol use, increased risk of ulcers/gastritis Past history of hematemesis, EGD 06/2023 was not performed as patient left AMA prior to this Thrombocytopenia Suspected due to cirrhosis and alcoholic suppression Hematology following - CBC trended Alcohol abuse Patient not interested in cessation Last 4-5 days without alcohol 1 week ago. Reports he did not have any withdrawal symptoms He is high risk as he is a daily drinker, and binge drinks on Saturdays. 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 Performed levels added, these should be performed annually Patient has diffuse rash on his shoulders/chest and some on the crown of the head in a sun-exposed distribution. This is consistent with BCT. Repeat porphyrin level and ferritin has been sent. Hematology consulted Hematuria, intermittent over 4 months -Following as outpatient and likely due to severe thrombocytopenia H&H trended Hypertension Patient reports losartan did not work for him and he is not very interested in taking blood pressure medicine. Is agreeable to trying amlodipine as he does not think he had been on this before Does have a history of lacunar infarct History of CVA With history of left lacunar pontine infarct Aspirin held due to hematuria DVT PPx: SCDs CODE: FULL (2) Hematuria: (3) Alcohol use: (4) Atrial fibrillation: (5) Tobacco dependence: (6) Hypertension: (7) Anxiety: (8) History of stroke: Plan: In 2017 with right-sided weakness; no other residual deficits (9) Liver cirrhosis, alcoholic: Plan Disposition: History of Present Illness Primary Care Provider: Kathy Jung MD Tobi is a 58-year-old male with a past medical history of hypertension, stroke, tobacco dependence, A-fib, alcohol use, GI bleed, alcoholic liver cirrhosis, and past therapeutic phlebotomy in 2019 for porphyria cutanea tarda with ferritin greater than 600. Seen at the bedside. RReports he was following with his PCP for hematospermia, hematuria, and R abdominal pain. No abdominal pain at tiem of bedside visit. Last week had a GI illness with vomiting several times a day, bile/green but no black/bloody content. No diarrhea. Never had a GI. Had high iron levels in 2019. has not followed up since. Iron levels went down 'after they cleaned me out' and hasn't followed up since. Attributes a stroke subsequently to this. Lacunar stroke, notes he always has blood pressure problems. Is not taking anythign from losartan. Tried losartan 'didn't work.' 'Everyone tries to take the blood pressure down, it just doesn't work'Drinks ETOH every night. Last drink yesterday 3pm. No history of withdrawal. Last went 4-5 days without ETOH due to his abdominal pain last week, no shakes/sweats/tremors/withdrawal. No history of seizures. Notes he drinks mroe on weekends due to [place]. No interest in cutting back on alcohol. "No interest. Helps me relax."1 mixed drink in the evenings, on Saturdays drinks most of the day. Would like a nicotine patch. Reports he came in for recurrent abdominal pain, although notes this has improved at time of bedside assessment. She denies vomiting/melena/hematochezia since last week. Remembers getting his blood drawn in 2019, reports he does not know why this was done or any disease associated with this. Medical History: Reviewed Medications: Reviewed Surgical History: Reviewed Family history: Reviewed Allergies: Reviewed NKDA. Allergic to bee stings. Social History: ETOH as noted. Tobacco. Requests packs Code Status: Full Allergies Allergy/AdvReac Type Severity Reaction Status Date / Time bee venom protein (honey bee) Allergy Severe Anaphylaxis Verified 12/06/23 13:35 Home Medications Medication Instructions Recorded Confirmed Type losartan 25 mg tablet 25 mg PO DAILY #30 tabs 12/02/23 12/30/23 Rx Past Med/Surg History Problem List (Updated 12/30/23 @ 13:53 by Deshawn Duvall PA-C) History of stroke Hematuria (Acute) Abdominal pain (Acute) Cholelithiasis Liver cirrhosis, alcoholic GIB (gastrointestinal bleeding) (Acute) Alcohol use (Acute) daily drinker Atrial fibrillation (Acute) Hematemesis Anxiety Tear of medial meniscus of left knee Encounter for pre-operative examination Headache Cervical pain (neck) Tobacco dependence 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-no current deficits Hypertension (Chronic) pt reports home readings range 180s/110-120s Medical History GERD (gastroesophageal reflux disease) Alcohol use Stroke Surgical History H/O endoscopic sinus surgery H/O nasal septoplasty History of open reduction and internal fixation (ORIF) procedure Family History Grandmother (Maternal) Diabetes Other No significant family history Denies family history of Ovarian cancer Prostate cancer Depression Heart disease Myocardial infarction Breast cancer Lung cancer Colorectal cancer Stroke Social History Smoking Status: Current every day smoker Tobacco Type: Cigarettes packs per day: 1; Cigarettes Per Day: smokes cigarettes 20 per day- if smokes cigars 1/2 pack- advised; Second Hand Exposure: No; Do You Dip or Chew Tobacco: No; Hx Alcohol Use: Yes Alcohol type: beer and hard liquor Alcohol Intake Frequency: 4 or More x per/Week Hx Substance Use: No Preferred Language: Maltese Communication Ability: Effective Visual Impairment: Limited 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: Normal 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 NAD. Cooperative. Skin: Diffuse rash on chest/back/shoudlers and scant areas on L hand as shown below. HEENT: Atraumatic, normocephalic. Pulm: CTAB A&P. -wheezes, -rales, -rhonchi. Symmetrical chest rise. No increased work of breathing. No respiratory distress. Cardiac: RRR, -mrg. Radial pulses intact and symmetrical. Abdominal: Mild epigastric TTP without rebound/guarding. nondistended, soft. BS present. Skin: Results & Data Results & Data Vital Signs (Past 12 Hours) Vital Signs Temp Pulse Pulse Resp BP BP Pulse Ox 12/30/23 14:38 70 16 96 12/30/23 13:00 71 19 12/30/23 13:00 169/97 H 12/30/23 12:53 72 17 12/30/23 12:53 180/103 H 12/30/23 12:30 62 18 12/30/23 11:30 75 17 97 12/30/23 11:14 78 15 99 12/30/23 11:14 180/108 H 12/30/23 11:00 80 21 96 12/30/23 10:41 77 12/30/23 10:30 75 21 97 12/30/23 10:28 82 16 97 12/30/23 10:16 76 18 97 12/30/23 10:16 76 18 163/90 H 97 12/30/23 09:55 36.9 C 87 18 168/97 H 99 O2 Del Method 12/30/23 14:38 12/30/23 13:00 12/30/23 13:00 12/30/23 12:53 12/30/23 12:53 12/30/23 12:30 12/30/23 11:30 12/30/23 11:14 12/30/23 11:14 12/30/23 11:00 12/30/23 10:41 12/30/23 10:30 12/30/23 10:28 12/30/23 10:16 Room Air 12/30/23 10:16 Room Air 12/30/23 09:55 Room Air PG Care Time/CCT Total # of Minutes Spent Total Time Spent with Patient: Total time spent is greater than 50% in coordination of care (as documented) at patient's floor/unit and/or counseling patient: Coding Level of Care Code 74496 INT INP/OBS CARE 3/75MIN Diagnoses Abdominal pain R10.9 Hematuria R31.9 Alcohol use Z78.9 Atrial fibrillation I48.91 Tobacco dependence F17.200 Hypertension I10 Anxiety F41.9 History of stroke Z86.73 Liver cirrhosis, alcoholic K70.30
[2023-12-30] MEDS: amLODIPine BESYLATE 5 MG TAB PO SCH (15:45)
--- NOTE | 2023-12-30 15:45 | Electrocardiogram Report ---
Test Reason : Blood Pressure : / mmHG Vent. Rate : 076 BPM Atrial Rate : 076 BPM P-R Int : 166 ms QRS Dur : 102 ms QT Int : 432 ms P-R-T Axes : 056 -15 051 degrees QTc Int : 486 ms Normal sinus rhythm Poor R wave progression, consider anterior ID vs. lead placement vs. LVH Abnormal ECG When compared with ECG of 02-DEC-2023 17:03, No significant change was found Confirmed by Jose Antonio ([id number]) on 12/30/2023 3:45:06 PM Referred By: REFERRED SELF Confirmed By:Jose Antonio
--- NOTE | 2023-12-30 15:49 | Oncology Consultation ---
Date of Consultation December 30, 2023 Assessment & Plan (1) Abdominal pain: (2) Porphyria cutanea tarda: (3) Thrombocytopenia: (4) Anemia: Plan -Thrombocytopenia and anemia likely due to bone marrow suppression from chronic alcohol use as well as liver cirrhosis with splenic sequestration. Recommend checking B12 and folate levels to rule out nutritional causes as well.Consider transfusing with platelets if the count remains below 50,000 prior to EGD. -Skin lesions likely due to PCT. However, patient is currently anemic and would not be able to tolerate phlebotomies. Consider outpatient low-dose hydroxychloroquine. Patient can follow-up with dermatology. Thank you for this consult. Hematology will sign off at this time. Please feel free to call if you have any further questions. History of Present Illness Reason for Consultation: Thrombocytopenia, history of PCT Attending Physician: History of Present Illness 58-year-old gentleman with history significant for alcoholic liver cirrhosis, porphyria cutanea tarda who presented to the ER with abdominal pain. Labs revealed anemia with hemoglobin of 10.3, hematocrit of 27.8 and platelet count of 37,000. CT abdomen and pelvis on 12/30/2023 revealed cirrhotic liver, trace abdominopelvic ascites, mild splenomegaly, esophageal varices and upper abdominal collaterals indicating portal hypertension, cholelithiasis, nonspecific infiltration seen around the celiac trunk and superior mesenteric artery, left-sided nephrolithiasis. CTA abdomen and pelvis also on 12/30/2023 revealed atherosclerosis without aneurysm, dissection, high-grade stenosis or arterial occlusion, cirrhosis with stigmata of portal venous hypertension, cholelithiasis, left-sided nephrolithiasis. Patient was seen by GI who plan for upper endoscopy tomorrow as long as blood count is above 50,000. Hematology was consulted for thrombocytopenia as well as history of porphyria cutanea tarda. Per review of his records, he was diagnosed with PCT after he had presented to dermatology with skin blisters in 2019. Labs revealed significantly elevated total urine porphyrins of greater than 6000.HFE DNA analysis was negative. He was subsequently started on every 2 weeks phlebotomy which he received from 05/03/2019 till 06/14/2019. Allergies Allergy/AdvReac Type Severity Reaction Status Date / Time bee venom protein (honey bee) Allergy Severe Anaphylaxis Verified 12/06/23 13:35 Home Medications Medication Instructions Recorded Confirmed Type losartan 25 mg tablet 25 mg PO DAILY #30 tabs 12/02/23 12/30/23 Rx Patient History Medical History GERD (gastroesophageal reflux disease) Alcohol use Stroke Surgical History H/O endoscopic sinus surgery H/O nasal septoplasty History of open reduction and internal fixation (ORIF) procedure Family History Grandmother (Maternal) Diabetes Other No significant family history Denies family history of Ovarian cancer Prostate cancer Depression Heart disease Myocardial infarction Breast cancer Lung cancer Colorectal cancer Stroke Social History Smoking Status: Current every day smoker Tobacco Type: Cigarettes packs per day: 1; Cigarettes Per Day: smokes cigarettes 20 per day- if smokes cigars 1/2 pack- advised; Second Hand Exposure: No; Do You Dip or Chew Tobacco: No; Hx Alcohol Use: Yes Alcohol type: beer and hard liquor Alcohol Intake Frequency: 4 or More x per/Week Hx Substance Use: No Preferred Language: Puerto Rican Communication Ability: Effective Visual Impairment: Limited 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: Normal 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 Beliefs That Will Affect Care: None marital status: single Current Living Situation: Alone current occupational status: employed How many Children do You have: 0 Feels Safe at Home: Yes Childhood Exposure to Second-Hand Smoke: Yes Diet: regular caffeine: Yes during the past year weight has: remained stable Dental Care, Regularly: No Physical Activity Frequency: Daily Seatbelt Use: never Sunscreen Use: No Assistive Devices: Glasses Results & Data Vital Signs (Past 12 Hours) Vital Signs Temp Pulse Pulse Resp BP BP Pulse Ox 12/30/23 15:30 65 15 97 12/30/23 15:01 185/111 H 12/30/23 15:01 81 16 97 12/30/23 15:00 85 19 97 12/30/23 14:38 70 16 96 12/30/23 13:00 71 19 12/30/23 13:00 169/97 H 12/30/23 12:53 72 17 12/30/23 12:53 180/103 H 12/30/23 12:30 62 18 12/30/23 11:30 75 17 97 12/30/23 11:14 78 15 99 12/30/23 11:14 180/108 H 12/30/23 11:00 80 21 96 12/30/23 10:41 77 12/30/23 10:30 75 21 97 12/30/23 10:28 82 16 97 12/30/23 10:16 76 18 97 12/30/23 10:16 76 18 163/90 H 97 12/30/23 09:55 36.9 C 87 18 168/97 H 99 O2 Del Method 12/30/23 15:30 12/30/23 15:01 12/30/23 15:01 12/30/23 15:00 12/30/23 14:38 12/30/23 13:00 12/30/23 13:00 12/30/23 12:53 12/30/23 12:53 12/30/23 12:30 12/30/23 11:30 12/30/23 11:14 12/30/23 11:14 12/30/23 11:00 12/30/23 10:41 12/30/23 10:30 12/30/23 10:28 12/30/23 10:16 Room Air 12/30/23 10:16 Room Air 12/30/23 09:55 Room Air (4) Anemia Anemia type: unspecified type Qualified Code(s): D64.9 - Anemia, unspecified
[2023-12-30 18:40] LABS: Folate (Folic Acid),Ser orPlas 6.42 ng/ml (>5.38)
[2023-12-30 18:41] LABS: Vitamin B12 > 1500 pg/ml (180-914)
[2023-12-30] MEDS ORDERED: LORazepam 1 MG in SYRINGE 0.5 ML IV PRN (18:52)
[2023-12-30 19:54] LABS: Hemoglobin 10.8 g/dl (14.0-18.0)
[2023-12-30] MEDS: MULTI-VITAMIN INFUSION 10 ML, THIAMINE HCL 100 MG, FOLIC ACID 1 MG in SODIUM CHLORIDE 0... IV ONE (20:02)
[2023-12-30] MEDS: PANTOprazole 40 MG in SYRINGE 0 ML IV SCH (20:02)
[2023-12-31 01:46] LABS: Hematocrit (blood only) 26.1 % (42.0-52.0); Hemoglobin 9.7 g/dl (14.0-18.0)
[2023-12-31 02:01] LABS: BUN Creatinine Ratio 12.3 (10-20); Calcium 7.9 mg/dl (8.6-10.3); Creatinine Clr Calc Pharmacy 90.5 ml/min; Est GFR (African American) 90.5 ml/min; Est GFR (Non-African American) 78.1 ml/min; Magnesium 1.5 mg/dl (1.7-2.4)
[2023-12-31] MEDS: POTASSIUM CHLORIDE CRTAB 20 MEQ TABCR PO STA (02:48)
[2023-12-31] MEDS: POTASSIUM CHLORIDE / WTR 10 MEQ/100 ML PLCT IV SCH ×2 (03:36→08:12)
[2023-12-31] MEDS: MAGNESIUM SULFATE / D5W 1 GM/100 ML BAG IV SCH (03:36)
[2023-12-31 06:14] LABS: Hematocrit (blood only) 26.4 % (42.0-52.0); Hemoglobin 9.8 g/dl (14.0-18.0); Mean Corpuscular Hemoglobin 32.9 pg (25.0-34.0); Mean Corpuscular Hgb Conc 37.1 g/dL (32.0-36.0); Mean Corpuscular Volume 88.6 fL (80.0-100.0); Platelet Count 36 K/uL (130-400); RDW Coefficient of Variation 17.6 % (11.5-14.5); RDW Standard Deviation 54.9 fL (36.4-46.3); Red Blood Count 2.98 M/uL (4.70-6.10); White Blood Count 5.12 K/ul (4.8-10.8)
[2023-12-31 06:43] LABS: Basophils # (auto) 0.05 K/uL (0.00-0.20); Eosinophils # (auto) 0.09 K/uL (0.00-0.50); Eosinophils % (auto) 1.8 %; Immature Granulocytes # (auto) 0.02 K/uL (0.01-0.20); Immature Granulocytes % (auto) 0.4 %; Lymphocytes # (auto) 1.48 K/uL (1.20-3.40); Lymphocytes % (auto) 28.9 %; Monocytes % (auto) 15.6 %; Neutrophils # (auto) 2.68 K/uL (1.40-6.50); Neutrophils % (auto) 52.3 %; Platelet Estimate Decreased (Normal); Target Cells 1+
[2023-12-31] MEDS ORDERED: MAGNESIUM SULFATE / D5W 1 GM/100 ML BAG IV SCH (07:45)
[2023-12-31] MEDS: MAGNESIUM SULFATE / D5W 1 GM/100 ML BAG IV ONE (08:12)
--- NOTE | 2023-12-31 11:16 | Communication Note ---
Date of Service: December 31, 2023 58 year old male with history of alcohol abuse and cirrhosis, presented to the ED with 4 month complaints of nausea, vomiting, abdominal pain. he tells me that he feels better today. no current GI symptoms. I informed the patient that we are unable to do his EGD today due to his platelets being 36 this morning. - continue with protonix 40mg IV bid. - patient tells me he is considering leaving the hospital, I recommended against this given his blood work. - continue to monitor labs. transfuse as needed.
[2023-12-31] MEDS: THIAMINE HCL 100 MG TAB PO SCH (11:58)
[2023-12-31] MEDS: FOLIC ACID 1 MG TAB PO SCH (11:58)
[2023-12-31] MEDS: NICOTINE 21 MG/24 HR TDSY TD SCH (12:29)
--- NOTE | 2023-12-31 15:16 | Discharge Summary ---
Date of Service December 31, 2023 Admission HPI Per Admitting Provider Tobi is a 58-year-old male with a past medical history of hypertension, stroke, tobacco dependence, A-fib, alcohol use, GI bleed, alcoholic liver cirrhosis, and past therapeutic phlebotomy in 2019 for porphyria cutanea tarda with ferritin greater than 600. Seen at the bedside. RReports he was following with his PCP for hematospermia, hematuria, and R abdominal pain. No abdominal pain at tiem of bedside visit. Las t week had a GI illness with vomiting several times a day, bile/green but no black/bloody content. No diarrhea. Never had a GI. Had high iron levels in 2019. has not followed up since. Iron levels went down 'after they cleaned me out' and hasn't followed up since. Attributes a stroke subsequently to this. Lacunar stroke, notes he always has blood pressure problems. Is not taking anythign from losartan. Tried losartan 'didn't work.' 'Everyone tries to take the blood pressure down, it just doesn't work'Drinks ETOH every night. Last drink yesterday 3pm. No history of withdrawal. Last went 4-5 days without ETOH due to his abdominal pain last week, no shakes/sweats/tremors/withdrawal. No history of seizures. Notes he drinks mroe on weekends due to [place]. No interest in cutting back on alcohol. "No interest. Helps me relax."1 mixed drink in the evenings, on Saturdays drinks most of the day. Would like a nicotine patch. Reports he came in for recurrent abdominal pain, although notes this has improved at time of bedside assessment. She denies vomiting/melena/hematochezia since last week. Remembers getting his blood drawn in 2019, reports he does not know why this was done or any disease associated with this. Medical History: Reviewed Medications: Reviewed Surgical History: Reviewed Family history: Reviewed Allergies: Reviewed NKDA. Allergic to bee stings. Social History: ETOH as noted. Tobacco. Requests packs Code Status: Full Admission Exam Per Admitting Provider General: A&Ox3. NAD. Cooperative. Skin: Diffuse rash on chest/back/shoudlers and scant areas on L hand as shown below. HEENT: Atraumatic, normocephalic. Pulm: CTAB A&P. -wheezes, -rales, -rhonchi. Symmetrical chest rise. No increased work of breathing. No respiratory distress. Cardiac: RRR, -mrg. Radial pulses intact and symmetrical. Abdominal: Mild epigastric TTP without rebound/guarding. nondistended, soft. BS present. Skin: photo documented in EMR. Principal Diagnosis Gastritis Discharge Data Allergies Allergy/AdvReac Type Severity Reaction Status Date / Time bee venom protein (honey bee) Allergy Severe Anaphylaxis Verified 12/06/23 13:35 Consultations 12/30/23 14:17 ED Decision to Admit Stat 12/30/23 15:17 Consult Gastroenterology Routine Consult Hematology Routine Ordered Studies Laboratory Results WBC 5.12 K/ul (4.8-10.8) 12/31/23 05:26 RBC 2.98 M/uL (4.70-6.10) L 12/31/23 05:26 Hgb 9.8 g/dl (14.0-18.0) L 12/31/23 05:26 Hct 26.4 % (42.0-52.0) L 12/31/23 05:26 MCV 88.6 fL (80.0-100.0) 12/31/23 05:26 MCH 32.9 pg (25.0-34.0) 12/31/23 05:26 MCHC 37.1 g/dL (32.0-36.0) H 12/31/23 05:26 RDW Std Deviation 54.9 fL (36.4-46.3) H 12/31/23 05:26 RDW Coeff of Jason 17.6 % (11.5-14.5) H 12/31/23 05:26 Plt Count 36 K/uL (130-400) L 12/31/23 05:26 Immature Gran % (Auto) 0.4 % 12/31/23 05:26 Neut % (Auto) 52.3 % 12/31/23 05:26 Lymph % (Auto) 28.9 % 12/31/23 05:26 [place] % (Auto) 15.6 % 12/31/23 05:26 Eos % (Auto) 1.8 % 12/31/23 05:26 Baso % (Auto) 1.0 % 12/31/23 05:26 Neut # (Auto) 2.68 K/uL (1.40-6.50) 12/31/23 05:26 Lymph # (Auto) 1.48 K/uL (1.20-3.40) 12/31/23 05:26 [place] # (Auto) 0.80 K/uL (0.11-0.59) H 12/31/23 05:26 Eos # (Auto) 0.09 K/uL (0.00-0.50) 12/31/23 05:26 Baso # (Auto) 0.05 K/uL (0.00-0.20) 12/31/23 05:26 Immature Gran # (Auto) 0.02 K/uL (0.01-0.20) 12/31/23 05:26 Platelet Estimate Decreased (Normal) L 12/31/23 05:26 Target Cells 1+ 12/31/23 05:26 PT 13.7 Seconds (9.0-12.0) H 12/30/23 10:29 INR 1.3 (0.9-1.1) H 12/30/23 10:29 APTT 33 Seconds (21-31) H 12/30/23 10:29 PTT Ratio 1.2 12/30/23 10:29 Sodium 134 mmol/L (136-145) L 12/31/23 01:15 Potassium 3.0 mmol/L (3.5-5.1) L 12/31/23 01:15 Chloride 105 mmol/L (98-107) 12/31/23 01:15 Carbon Dioxide 21 mmol/L (21-32) 12/31/23 01:15 Anion Gap 8 (3-11) 12/31/23 01:15 BUN 13 mg/dl (6-23) 12/31/23 01:15 Creatinine 1.06 mg/dl (0.6-1.4) 12/31/23 01:15 Est Cr Clr Drug Dosing 90.5 ml/min 12/31/23 01:15 Est GFR ( Amer) 90.5 ml/min 12/31/23 01:15 Est GFR (Non-Af Amer) 78.1 ml/min 12/31/23 01:15 BUN/Creatinine Ratio 12.3 (10-20) 12/31/23 01:15 Glucose 77 mg/dl (70-99(Fasting)) 12/31/23 01:15 Calcium 7.9 mg/dl (8.6-10.3) L 12/31/23 01:15 Magnesium 1.5 mg/dl (1.7-2.4) L 12/31/23 01:15 Iron 106 mcg/dl (35-175) 12/30/23 10:29 TIBC 198 mcg/dl (250-450) L 12/30/23 10:29 Unsaturated IBC 92 mcg/dl (155-355) L 12/30/23 10:29 Transferrin % Sat 54 % (20-50) H 12/30/23 10:29 Ferritin 388.0 ng/ml (8-388) 12/30/23 10:29 Total Bilirubin 7.6 mg/dl (0.2-1.0) H 12/30/23 10:29 AST 102 U/L (13-39) H 12/30/23 10:29 ALT 27 U/L (7-52) 12/30/23 10:29 Alkaline Phosphatase 188 U/L (34-104) H 12/30/23 10:29 Troponin I High Sens 12.1 pg/ml (0-20) 12/30/23 10:29 Total Protein 7.9 gm/dl (6.0-8.3) 12/30/23 10:29 Albumin 3.0 gm/dl (3.4-5.0) L 12/30/23 10:29 Globulin 4.9 gm/dl (2.5-4.0) H 12/30/23 10:29 Albumin/Globulin Ratio 0.6 (0.9-2) L 12/30/23 10:29 Lipase 102 U/L (11-82) H 12/30/23 10:29 Vitamin B12 > 1500 pg/ml (180-914) H 12/30/23 17:10 Folate 6.42 ng/ml (>5.38) 12/30/23 17:10 Urine Color Dark Yellow 12/30/23 12:00 Urine Appearance Clear (Clear) 12/30/23 12:00 Urine pH 7.5 (4.5-7.5) 12/30/23 12:00 Ur Specific Mc[place]osh 1.017 (1.000-1.030) 12/30/23 12:00 Urine Protein Trace (Negative) H 12/30/23 12:00 Urine Glucose (UA) Negative (Negative) 12/30/23 12:00 Urine Ketones Negative (Negative) 12/30/23 12:00 Urine Blood Negative (Negative) 12/30/23 12:00 Urine Nitrite Negative (Negative) 12/30/23 12:00 Urine Bilirubin 2+ (Negative) H 12/30/23 12:00 Urine Urobilinogen Positive (Negative) H 12/30/23 12:00 Ur Leukocyte Esterase Trace (Negative) H 12/30/23 12:00 Urine WBC (Auto) 0-5 /hpf (0-5) 12/30/23 12:00 Urine RBC (Auto) 0-2 /hpf (0-2) 12/30/23 12:00 U Hyaline Cast (Auto) 0-2 /lpf (0-2) 12/30/23 12:00 U Epithel Cells (Auto) 0-2 /hpf (0-2) 12/30/23 12:00 Urine Bacteria (Auto) None Seen (None Seen) 12/30/23 12:00 Impressions Abdomen/Pelvis CT 12/30/23 10:36 CT SCAN OF THE ABDOMEN AND PELVIS WITHOUT IV CONTRAST CLINICAL HISTORY: Generalized abdominal pain. Hematuria. COMPARISON STUDY: Abdominal ultrasound dated 12/10/2023. TECHNIQUE: CT scan of the abdomen and pelvis is performed from the lung bases to the proximal femora. Images are reviewed in the axial, sagittal, and coronal planes. IV contrast was not administered for this examination. A dose lowering technique was utilized adhering to the principles of ALARA. CT DOSE: 1112.64 mGy.cm FINDINGS: Lung bases: The heart is enlarged and without pericardial effusion. There are coronary artery calcifications. The lung bases are clear noting dependent atelectasis. There is a small hiatal hernia. Esophageal varices are noted. Liver: The unenhanced liver is mildly enlarged, cirrhotic in morphology, and heterogeneous in attenuation. There is no intrahepatic biliary ductal dilatation. An 11 mm cyst is noted in the inferior right lobe. Gallbladder: There are calcified gallstones with no CT evidence of acute cholecystitis. Spleen: Mildly enlarged measuring 13.6 cm in length. Pancreas: Unremarkable. Adrenal glands: Unremarkable. Kidneys: The unenhanced kidneys are normal in size and without hydronephrosis. There are at least 2 nonobstructing left renal calculi which measure up to 2 mm. No right renal calculi are identified and no ureteral stone is seen. There is no evidence of contour deforming renal mass lesion. Abdominal vasculature: The abdominal aorta is normal in course and caliber noting moderate atherosclerotic calcification. There are perigastric collaterals. Bowel: There is no bowel obstruction. There are duodenal diverticula without CT evidence of acute diverticulitis. The appendix is well-visualized and normal. Peritoneum: There is trace abdominopelvic ascites. No intraperitoneal free air is identified. There is a fat and fluid containing umbilical hernia. There is nonspecific infiltration identified from the celiac trunk and superior mesenteric artery. Lymphadenopathy: None. Pelvic viscera: The prostate gland is enlarged and heterogeneous. The bladder wall is thickened/trabeculated indicating chronic outlet obstruction. A fat- containing groin hernia is noted on the left. Skeletal structures: No lytic or blastic lesions are seen. There is mild lumbosacral spondylosis. Sclerotic change is noted in the sacroiliac joints. IMPRESSION: 1. The liver is cirrhotic in morphology and heterogeneous in attenuation. 2. Trace abdominopelvic ascites, mild splenomegaly, esophageal varices, and upper abdominal collaterals indicate portal hypertension. 3. Cholelithiasis. 4. There is nonspecific infiltration seen around the celiac trunk and superior mesenteric artery. This should be correlated with clinical and laboratory findings. If there is clinical concern for vascular pathology a CT angiogram could be considered. 5. Left-sided nephrolithiasis. 6. Cardiomegaly. 7. Additional findings as above. ACT 112: Negative or not required by law. Electronically signed by: Surinder Crowe M.D. 12/30/2023 12:00 PM Abdomen/Pelvis CTA 12/30/23 13:36 CT angio abdomen pelvis w con CLINICAL HISTORY: 58 years-old Male with eval SMA, celiac inflammation acute mid abdominal pain COMPARISON STUDY: CT abdomen and pelvis of same day at 11:02 AM TECHNIQUE: Following the IV administration of 120 cc of Optiray, CT angiogram of the abdomen and pelvis was performed from the lung bases the proximal femora. Images are reviewed in the axial, sagittal, and coronal planes. 3-D MIPS images are created and assessed. All measurements were obtained according to NASCET criteria. IV contrast was administered without complication. A dose lowering technique was utilized adhering to the principles of ALARA. CT DOSE: 1211.7 mGy.cm FINDINGS: CTA: The abdominal aorta is normal in course and caliber noting moderate atherosclerotic calcification. There are perigastric collaterals. No abdominal aortic aneurysm or dissection. Patent iliac and imaged femoral arteries. Celiac trunk, superior and inferior mesenteric arteries are patent. The renal arteries are patent. There are 2 accessory right-sided renal arteries with at least moderate stenosis at the origin of the accessory renal artery on image [address] ABDOMEN AND PELVIS: Lung bases: The heart is enlarged and without pericardial effusion. There are c oronary artery calcifications. The lung bases are clear noting dependent atelectasis. There is a small hiatal hernia. Esophageal varices are noted. Liver: The liver is mildly enlarged, cirrhotic in morphology, and heterogeneous in attenuation. There is no intrahepatic biliary ductal dilatation. Ill-defined area of increased attenuation within the posterior right hepatic lobe on image 19 series 2 measuring 1.8 cm favors vascular shunting with additional similar appearing areas noted within the left lobe of the liver. An 11 mm cyst is noted in the inferior right lobe. Gallbladder: There are calcified gallstones with no CT evidence of acute cholecystitis. Spleen: Mildly enlarged measuring 13.6 cm in length. Pancreas: Unremarkable. Adrenal glands: Unremarkable. Kidneys: The kidneys are normal in size and without hydronephrosis. There are at least 2 nonobstructing left renal calculi which measure up to 2 mm. No right renal calculi are identified and no ureteral stone is seen. Bowel: There is no bowel obstruction. There are duodenal diverticula without CT evidence of acute diverticulitis. The appendix is well-visualized and normal. Peritoneum: There is trace abdominopelvic ascites. No intraperitoneal free air is identified. There is a fat and fluid containing umbilical hernia. There is nonspecific infiltration identified from the celiac trunk and superior mese nteric artery. Lymphadenopathy: None. Pelvic viscera: The prostate gland is enlarged and heterogeneous. The bladder wall is thickened/trabeculated indicating chronic outlet obstruction. A fat-co ntaining groin hernia is noted on the left. Skeletal structures: No lytic or blastic lesions are seen. There is mild lumbosacral spondylosis. Sclerotic change is noted in the sacroiliac joints. IMPRESSION: 1. Atherosclerosis without aneurysm, dissection, high-grade stenosis or arterial occlusion. 2. Cirrhosis with stigmata of portal venous hypertension. 3. Cholelithiasis. 4. Left-sided nephrolithiasis. 5. No bowel obstruction or bowel wall thickening. 6. Additional findings as above. ACT 112: Negative or not required by law. The above report was generated using voice recognition software. It may contain grammatical, syntax or spelling errors. Electronically signed by: Clifford Lazo M.D. 12/30/2023 2:49 PM Hospital Course (1) Abdominal pain: (2) Porphyria cutanea tarda: (3) Thrombocytopenia: (4) Anemia: Plan Abdominal pain 4 months of intermittent abdominal pain, much improved after admission to the ER CTA:1. Atherosclerosis without aneurysm, dissection, high-grade stenosis or arterial occlusion. 2. Cirrhosis with stigmata of portal venous hypertension.3. Cholelithiasis.4. Left-sided nephrolithiasis.5. No bowel obstruction or bowel wall thickening. With chronic alcohol use, increased risk of ulcers/gastritis Past history of hematemesis, EGD 06/2023 was not performed as patient left AMA prior to this GI consulted and recommend outpatient EGD. Meds at discharge: -Pantoprazole 40mg twice a day -Famotidine 20mg twice a day -Sucralfate 1g before meals - Recommend GI follow up. Thrombocytopenia & Anemia Suspected due to chronic bone marrow suppression from chronic alcohol use as well as liver cirrhosis/splenic sequestration. - B12 levels elevated @ >1500 and folate WNL. Hematology consulted and recommended plt transfusion prior to EGD if platelets remain below 50,000. Alcohol abuse Patient not interested in cessation Last 4-5 days without alcohol 1 week ago. Reported no withdrawal symptoms He is high risk as he is a daily drinker, and binge drinks on Saturdays. - A WSS at risk protocol Porphyria cutanea tarda With history of phlebotomy and ferritin levels greater than 600 and 2019 Hepatitis C screening and HIV testing negative in both 2018 and 2023 Repeat ferritin pending. Porphyrin levels added, these should be performed annually Patient has diffuse rash on his shoulders/chest and some on the crown of the head in a sun-exposed distribution. This is consistent with PCT. Repeat porphyrin level and ferritin has been sent. - Hematology consulted and recommend consider outpatient low-dose hydroxychloroquine and dermatology follow-up. Hematuria, intermittent over 4 months -Recommend following as outpatient and likely due to severe thrombocytopenia. Hypertension Recommend continue losartan. Total Time Total Time Spent Total Time Spent (In Minutes): 30 minutes Discharge Plan Discharge Items Patient Disposition: Home - Self-Care Reason For Visit: HEMATURIA, ABDOMINAL PAIN Discharge Diagnosis: Gastritis Activity: Per Instructions section Non-emergency contact: Primary Care Provider Call non-emergency contact if: you have any medication questions and your symptoms worsen Follow-up/Referrals: Kathy Jung MD [Primary Care Provider] - Diet: Low Fat Addtl Attending Provider Instructions: After further evaluation we suspect much of your abdominal pain is from inflammation of your stomach lining. Now we cannot rule out other possibilities without obtaining an EGD which is using a scope to look into your GI tract. So for now, we will treat the gastritis with medications that can be weened off by your primary care provider. Then as an outpatient you will follow up with GI to have the EGD performed. New Medications -Pantoprazole 40mg twice a day -Famotidine 20mg twice a day -Sucralfate 1g before meals Pending Studies at Discharge: No Stand-Alone Forms: My [facility] [employer], Smoking Cessation Medications and DC Order Prescriptions: New pantoprazole 40 mg tablet,delayed release (DR/EC) 40 mg PO BID Qty: 60 0RF famotidine 20 mg tablet 20 mg PO BID Qty: 60 0RF sucralfate 1 gram tablet 1 g PO ACHS Qty: 120 0RF Continued losartan 25 mg tablet 25 mg PO DAILY Qty: 30 2RF Discharge Orders: Discharge Order (Routine); Ordered 12/31/23 Ordered By: oNrbert Shields/Other Patient Handouts: Hypertension Stroke Link, Cirrhosis of Liver Dc Admission Data Admit Date/Time: 12/30/23 15:22 Attending Provider: Wiliam Lebron Admit Provider: Koby Hernandez Primary Care Provider: Kathy Jung Other Providers: Koby Hernandez; Dawson Montejo; Esther Thomas Other Interventions: Discharge Summary Assessment (RN) Last Done: 12/31/23 14:24 Supervising Physician Co-Signing Physician Notes I personally examined the patient and verified all hawthorne points of history and exam, discussed case, and agree with decision making with A Avis MS4 and Dr Rubio Feeling better. Notes that he wants to get home today. Is willing to follow- up as an outpatient, but definitely does not want to stay in the hospital given the scope is not happening today. Vitals noted, in general he is awake and alert pleasant no distress. HEENT normocephalic atraumatic mucous membranes moist. Breathing unlabored no accessory muscle use good effort. Skin shows no rashes no pallor or icterus. Neuro without focal deficits. Abdominal painconcern on peptic ulcer disease/gastritisfortunately hemoglobin relatively stableobviously would prefer him to stay and have ongoing follow-up, but he has made it clear that this will not be the case. In that respect, acid suppression as though he has fairly severe mucosal diseasetwice daily PPI, twice daily H2, 4 times daily Carafatefollow-up with PCP next week, as his symptoms dictate, can start to reduce the acid suppression, although given (and we discussed this) that the alcohol would be the biggest offender for any sort of GI mucosal disease, as long as he continues to drink, probably should keep the PPI at twice daily. Discussed that his fatigue is also likely self-inflicted from alcohol abuse, poor self-care, etc. He expresses an understanding of this. CBC early next week, close outpatient follow-up, ho pefully EGD as an outpatient in the near future, obviously alcohol cessation would be of enormous benefit but he understands the risks and does not want to quit.
--- NOTE | 2023-12-31 19:43 | Billing Data ---
Date of Service December 31, 2023 Coding Level of Care Code 46478 IN/OBS DISCH 30 MIN/LESS
== END 2023-12-31 14:58 | disposition home or self-care (01) | DRG 392 ==
LOC: ED 09:49 → 4W 15:22 → INTOOBSV 15:22 → SUATTDRO 15:22 → 4W 17:33

== ENCOUNTER 2024-01-10 04:09 | Inpatient (IN) ==
[2024-01-10 05:30] LABS: Albumin Globulin Ratio 0.6 (0.9-2); Albumin Level 2.9 gm/dl (3.4-5.0); BUN Creatinine Ratio 10.1 (10-20); Bilirubin,Total 9.2 mg/dl (0.2-1.0); Calcium 8.4 mg/dl (8.6-10.3); Creatinine Clr Calc Pharmacy 96.9 ml/min; Est GFR (African American) 98.3 ml/min; Est GFR (Non-African American) 84.8 ml/min; Globulin 5.2 gm/dl (2.5-4.0); Magnesium 1.6 mg/dl (1.7-2.4); Potassium 3.5 mmol/L (3.5-5.1); Total Protein 8.1 gm/dl (6.0-8.3)
[2024-01-10 05:36] LABS: Troponin I High Sensitivity 6.9 pg/ml (0-20)
[2024-01-10 05:41] LABS: INR 1.3 (0.9-1.1); Prothrombin Time 13.5 Seconds (9.0-12.0)
[2024-01-10] MEDS: OPTIRAY 320 100ml IV ONE (05:50)
[2024-01-10 05:54] LABS: Anisocytosis Present; Basophils # (auto) 0.08 K/uL (0.00-0.20); Basophils % (auto) 1.1 %; Eosinophils # (auto) 0.09 K/uL (0.00-0.50); Eosinophils % (auto) 1.3 %; Hematocrit (blood only) 25.8 % (42.0-52.0); Hemoglobin 9.6 g/dl (14.0-18.0); Immature Granulocytes # (auto) 0.05 K/uL (0.01-0.20); Immature Granulocytes % (auto) 0.7 %; Lymphocytes # (auto) 1.62 K/uL (1.20-3.40); Mean Corpuscular Hemoglobin 32.2 pg (25.0-34.0); Mean Corpuscular Hgb Conc 37.2 g/dL (32.0-36.0); Mean Corpuscular Volume 86.6 fL (80.0-100.0); Monocytes # (auto) 0.75 K/uL (0.11-0.59); Monocytes % (auto) 10.7 %; Neutrophils # (auto) 4.45 K/uL (1.40-6.50); Neutrophils % (auto) 63.2 %; Platelet Count 64 K/uL (130-400); Polychromasia 2+; RDW Coefficient of Variation 20.7 % (11.5-14.5); Red Blood Count 2.98 M/uL (4.70-6.10); Rouleaux 1+; Target Cells 3+; White Blood Count 7.04 K/ul (4.8-10.8)
--- NOTE | 2024-01-10 06:42 | Emergency Department Note ---
Impression & Plan Acute pancreatitis, Anemia, Alcohol intoxication, Alcohol abuse, Elevated bilirubin ED Provider Note NAME: MARCELO ANGEL AGE: 58 SEX: M : 1965 ARRIVES VIA: Walk-In INFORMANT: Patient ED PROVIDER(S): Wiliam Rios DO CHIEF COMPLAINT: Abdominal pain HPI: Patient is a 58-year-old who presents to the ER for abdominal pain periumbilically. Does go through to the back. Is also present inferiorly at the belt line. Associated with nausea but no vomiting. Patient denies any headache or change in vision. No chest pain or shortness of breath. No dysuria, urgency, or frequency. No black or tarry stools. He notes that the pain is only improved with drinking alcohol. No other exacerbating or remitting factors. ADDITIONAL HISTORY OBTAINED: Per HPI Chronic Medical/Social Conditions Affecting Care: Per HPI PAST MEDICAL HISTORY:See Below PAST SURGICAL HISTORY:See Below FAMILY HISTORY:See Below SOCIAL HISTORY:See Below HOME MEDICATIONS:See Below ALLERGIES:See Below VITALS:See Below PHYSICAL EXAMINATION: GENERAL: Sitting up in bed, alert, chronically ill-appearing, disheveled, smell of alcohol on breath, jaundice EYE EXAM: normal conjunctiva. OROPHARYNX: mucous membranes are moist NECK: supple, no nuchal rigidity, no adenopathy, non-tender LUNGS: Clear to auscultation. Normal chest wall mechanics HEART: no murmurs, S1 normal and S2 normal RECTAL: Hem neg ABDOMEN: abdomen soft, non-tender, normo-active bowel sounds, no masses, no rebound or guarding. UPPER EXTREMITIES: upper extremities are grossly normal. LOWER EXTREMITIES: No pitting edema. NEURO EXAM: Normal sensorium, cranial nerves II-XII grossly intact, normal speech, no gross weakness of arms, no gross weakness of legs. MEDICAL DECISION MAKING: Patient is a 58-year-old alcoholic male presents ER for above-stated complaint. IV was established blood work was obtained. Labs show mild anemia at 9.6. Diabetes cytopenia at 64 fairly consistent with previous likely secondary to alcohol abuse. INR elevated 1.3. BMP was fairly unremarkable. Mag slightly low at 1.6. T. bili simply elevated 9.2 up from 7 several days ago. No significant transaminitis. Troponin negative. Lipase was elevated at 250. Urine was clean. Alcohol elevated at 190. CT abdomen pelvis shows portal hypertension with fluid around the gallbladder. With the symptoms being present for several weeks to months I do favor this is likely not consistent with acute cholecystitis. He is afebrile without white count. Discussed case with the hospitalist for further evaluation management treatment. Consults/Care Managements Discussions: Per MDM Triage Nursing notes reviewed. Limited review of prior medical records performed Vital Signs: reviewed and remarkable for no significant abnormalities Differential diagnosis: Differential diagnoses includes but is not limited to gastritis, peptic ulcer disease, GERD, gallbladder disease, pancreatitis, small bowel obstruction, appendicitis, diverticulitis, hernia, urinary tract infection, torsion, perforation, trauma, infectious. ER treatment provided: See below Diagnostics interpreted by me include EKG and cardiac monitoring as listed below: -Cardiac Monitoring: An order was placed for continuous cardiac monitoring. The monitor shows a rate of 90 with sinus rhythm. -ECG: Sinus rhythm rate 83 Normal axis No PVCs QTc 455 -Laboratory studies:Interpreted by me as stated above in MDM and shown below. Imaging studies: Xrays: As interpreted by me:none CTs show: CT abdomen pelvis per my preliminary interpretation showed no obvious bowel obstruction CT abdomen pelvis as described above Procedures:none Critical Care: None Past Med/Surg History Problem List (Updated 01/10/24 @ 12:09 by Wiliam Rios DO) Elevated bilirubin (Acute) Alcohol abuse (Acute) Alcohol intoxication (Acute) Anemia (Acute) Acute pancreatitis (Acute) History of stroke Hematuria (Acute) Abdominal pain (Acute) Cholelithiasis Liver cirrhosis, alcoholic GIB (gastrointestinal bleeding) (Acute) Alcohol use (Acute) daily drinker Atrial fibrillation (Acute) Hematemesis Anxiety Tear of medial meniscus of left knee Encounter for pre-operative examination Headache Cervical pain (neck) Tobacco dependence 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-no current deficits Hypertension (Chronic) pt reports home readings range 180s/110-120s Medical History GERD (gastroesophageal reflux disease) Surgical History H/O endoscopic sinus surgery H/O nasal septoplasty History of open reduction and internal fixation (ORIF) procedure Family History Grandmother (Maternal) Diabetes Other No significant family history Denies family history of Ovarian cancer Prostate cancer Depression Heart disease Myocardial infarction Breast cancer Lung cancer Colorectal cancer Stroke Social History Smoking Status: Current every day smoker Tobacco Type: Cigarettes packs per day: 1; Cigarettes Per Day: smokes cigarettes 20 per day- if smokes cigars 1/2 pack- advised; Second Hand Exposure: No; Do You Dip or Chew Tobacco: No; Hx Alcohol Use: Yes Alcohol type: beer Alcohol Intake Frequency: 4 or More x per/Week Hx Substance Use: No Preferred Language: Korean Communication Ability: Effective Visual Impairment: Limited 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: Normal [employer] Required: No Beliefs That Will Affect Care: None marital status: single Current Living Situation: Alone current occupational status: employed How many Children do You have: 0 Feels Safe at Home: Yes Safety Concerns: Feels Safe At This Time Childhood Exposure to Second-Hand Smoke: Yes Diet: regular caffeine: Yes during the past year weight has: remained stable Dental Care, Regularly: No Physical Activity Frequency: Daily Seatbelt Use: never Sunscreen Use: No Assistive Devices: Glasses Allergies Allergies Allergy/AdvReac Type Severity Reaction Status Date / Time bee venom protein (honey bee) Allergy Severe Anaphylaxis Verified 01/06/24 13:41 Home Meds Previous Rx's Medication Instructions Recorded famotidine 20 mg tablet 20 mg PO BID #60 tabs 12/31/23 pantoprazole 40 mg tablet,delayed 40 mg PO BID #60 tabs 12/31/23 release sucralfate 1 gram tablet 1 g PO ACHS #120 tabs 12/31/23 doxycycline hyclate 100 mg capsule 100 mg PO BID 28 days #56 caps 01/06/24 losartan 50 mg tablet 50 mg PO DAILY #90 tabs 01/06/24 Results & Data (ED) Vital Signs Vital Signs - 24 hr 01/10/24 04:19 01/10/24 04:51 01/10/24 04:51 Temperature 37.4 C Temperature Source Temporal Artery Scan Pulse Rate 86 86 Pulse Rate [Apical] 85 Pulse Rate from SpO2 Sensor Pulse Rhythm Regular Pulse Rhythm [Apical] Regular Pulse Strength [Apical] Normal Respiratory Rate 18 12 17 Respiratory Effort / Characteristics Non-Labored Spontaneous Non-Labored Respiratory Depth Normal Normal Respiratory Pattern Regular Regular Blood Pressure 152/86 H Blood Pressure [Right Arm] 159/97 H Blood Pressure Mean 108 Blood Pressure Mean [Right Arm] 117 Blood Pressure Position Sitting Pulse Oximetry 97 97 97 Oxygen Delivery Method Room Air Room Air Room Air Sepsis Recent Fever Within 48 Hours No Sepsis New/Unexplained Change in Mental Status N/A Sepsis Action Taken by Nursing No Action Required 01/10/24 04:51 01/10/24 04:51 01/10/24 05:00 Temperature Temperature Source Pulse Rate 84 Pulse Rate [Apical] Pulse Rate from SpO2 Sensor Pulse Rhythm Pulse Rhythm [Apical] Pulse Strength [Apical] Respiratory Rate Respiratory Effort / Characteristics Respiratory Depth Respiratory Pattern Blood Pressure 159/97 H 154/93 H Blood Pressure [Right Arm] Blood Pressure Mean 117 119 Blood Pressure Mean [Right Arm] Blood Pressure Position Pulse Oximetry Oxygen Delivery Method Sepsis Recent Fever Within 48 Hours Sepsis New/Unexplained Change in Mental Status Sepsis Action Taken by Nursing 01/10/24 05:03 01/10/24 05:24 01/10/24 05:30 Temperature Temperature Source Pulse Rate 81 82 Pulse Rate [Apical] Pulse Rate from SpO2 Sensor 81 82 Pulse Rhythm Pulse Rhythm [Apical] Pulse Strength [Apical] Respiratory Rate 11 L 19 Respiratory Effort / Characteristics Respiratory Depth Respiratory Pattern Blood Pressure 145/82 H Blood Pressure [Right Arm] Blood Pressure Mean 103 Blood Pressure Mean [Right Arm] Blood Pressure Position Pulse Oximetry 98 99 Oxygen Delivery Method Sepsis Recent Fever Within 48 Hours Sepsis New/Unexplained Change in Mental Status Sepsis Action Taken by Nursing 01/10/24 05:36 01/10/24 05:42 01/10/24 06:10 Temperature Temperature Source Pulse Rate 83 85 Pulse Rate [Apical] Pulse Rate from SpO2 Sensor 83 Pulse Rhythm Pulse Rhythm [Apical] Pulse Strength [Apical] Respiratory Rate 17 19 Respiratory Effort / Characteristics Respiratory Depth Respiratory Pattern Blood Pressure 158/111 H Blood Pressure [Right Arm] Blood Pressure Mean 140 Blood Pressure Mean [Right Arm] Blood Pressure Position Pulse Oximetry 97 Oxygen Delivery Method Sepsis Recent Fever Within 48 Hours Sepsis New/Unexplained Change in Mental Status Sepsis Action Taken by Nursing 01/10/24 06:15 01/10/24 07:19 Temperature Temperature Source Pulse Rate 86 Pulse Rate [Apical] 90 Pulse Rate from SpO2 Sensor 86 Pulse Rhythm Pulse Rhythm [Apical] Pulse Strength [Apical] Respiratory Rate 14 18 Respiratory Effort / Characteristics Respiratory Depth Respiratory Pattern Blood Pressure Blood Pressure [Right Arm] 154/93 H Blood Pressure Mean Blood Pressure Mean [Right Arm] 113 Blood Pressure Position Pulse Oximetry 95 96 Oxygen Delivery Method Sepsis Recent Fever Within 48 Hours Sepsis New/Unexplained Change in Mental Status Sepsis Action Taken by Nursing Laboratory Data 01/10/24 04:49 01/10/24 04:49 Lab Results 01/10/24 01/10/24 Range/Units 04:49 06:20 WBC 7.04 (4.8-10.8) K/ul RBC 2.98 L (4.70-6.10) M/uL Hgb 9.6 L (14.0-18.0) g/dl Hct 25.8 L (42.0-52.0) % MCV 86.6 (80.0-100.0) fL MCH 32.2 (25.0-34.0) pg MCHC 37.2 H (32.0-36.0) g/dL RDW Std Deviation 65.0 H (36.4-46.3) fL RDW Coeff of Jason 20.7 H (11.5-14.5) % Plt Count 64 L (130-400) K/uL Immature Gran % (Auto) 0.7 % Neut % (Auto) 63.2 % Lymph % (Auto) 23.0 % Hardy % (Auto) 10.7 % Eos % (Auto) 1.3 % Baso % (Auto) 1.1 % Neut # (Auto) 4.45 (1.40-6.50) K/uL Lymph # (Auto) 1.62 (1.20-3.40) K/uL Hardy # (Auto) 0.75 H (0.11-0.59) K/uL Eos # (Auto) 0.09 (0.00-0.50) K/uL Baso # (Auto) 0.08 (0.00-0.20) K/uL Immature Gran # (Auto) 0.05 (0.01-0.20) K/uL Polychromasia 2+ Anisocytosis Present Target Cells 3+ Rouleaux 1+ PT 13.5 H (9.0-12.0) Seconds INR 1.3 H (0.9-1.1) Sodium 139 (136-145) mmol/L Potassium 3.5 (3.5-5.1) mmol/L Chloride 107 (98-107) mmol/L Carbon Dioxide 24 (21-32) mmol/L Anion Gap 8 (3-11) BUN 10 (6-23) mg/dl Creatinine 0.99 (0.6-1.4) mg/dl Est Cr Clr Drug Dosing 96.9 ml/min Est GFR ( Amer) 98.3 ml/min Est GFR (Non-Af Amer) 84.8 ml/min BUN/Creatinine Ratio 10.1 (10-20) Glucose 92 (70-99(Fasting)) mg/dl Lactate 1.4 (0.4-2.0) mmol/L Calcium 8.4 L (8.6-10.3) mg/dl Magnesium 1.6 L (1.7-2.4) mg/dl Total Bilirubin 9.2 H (0.2-1.0) mg/dl AST 109 H (13-39) U/L ALT 30 (7-52) U/L Alkaline Phosphatase 259 H (34-104) U/L Ammonia 30.0 (18-72) umol/L Troponin I High Sens 6.9 (0-20) pg/ml Total Protein 8.1 (6.0-8.3) gm/dl Albumin 2.9 L (3.4-5.0) gm/dl Globulin 5.2 H (2.5-4.0) gm/dl Albumin/Globulin Ratio 0.6 L (0.9-2) Lipase 246 H (11-82) U/L Vitamin B12 > 1500 H (180-914) pg/ml Folate 4.97 L (>5.38) ng/ml Urine Color Dark Yellow Urine Appearance Clear (Clear) Urine pH 7.0 (4.5-7.5) Ur Specific [place] 1.021 (1.000-1.030) Urine Protein Negative (Negative) Urine Glucose (UA) Negative (Negative) Urine Ketones Negative (Negative) Urine Blood Negative (Negative) Urine Nitrite Negative (Negative) Urine Bilirubin 2+ H (Negative) Urine Urobilinogen Positive H (Negative) Ur Leukocyte Esterase Negative (Negative) Ethyl Alcohol mg/dL 188.1 H (<10.0) mg/dl Blood Type O Positive Antibody Screen NEGATIVE Administered Medications Pantoprazole Sodium 40 mg/ (Syringe) 10 mls @ 5 mls/min IV BID SHAWN Stop: 02/09/24 08:59 Last Admin: 01/10/24 09:50 Dose: 5 mls/min Documented By: SUSI Famotidine (Pepcid 20mg Iv Push) 20 mg in 5 mls @ 2.5 mls/min IV Q12H SHAWN Stop: 02/09/24 08:29 Last Admin: 01/10/24 09:49 Dose: 2.5 mls/min Documented By: SUSI Doxycycline Hyclate 100 mg/ (Dextrose) 100 mls @ 50 mls/hr IV Q12H SHAWN Stop: 02/03/24 08:44 Last Admin: 01/10/24 09:50 Dose: 50 mls/hr Documented By: SUSI Thiamine HCl 100 mg/ Syringe 10 mls @ 2 mls/min IV QAM [facility] Stop: 02/09/24 10:29 Last Admin: 01/10/24 11:25 Dose: 2 mls/min Documented By: ЕЛЕНА Folic Acid 1 mg/ Syringe 10 mls @ 5 mls/min IV QAM [facility] Stop: 02/09/24 10:29 Last Admin: 01/10/24 11:24 Dose: 5 mls/min Documented By: ЕЛЕНА Losartan Potassium (Losartan Potassium 50 Mg Tab) 50 mg PO DAILY SHAWN Stop: 02/09/24 08:59 Last Admin: 01/10/24 11:22 Dose: 50 mg Documented By: ЕЛЕНА Sucralfate (Sucralfate 1 Gm Tab) 1 gm PO ACHS SHAWN Stop: 02/09/24 11:29 Last Admin: 01/10/24 11:22 Dose: 1 gm Documented By: ЕЛЕНА Discontinued Medications Sodium Chloride (Nss) 1,000 mls @ 999 mls/hr IV .Q1H1M ONE Stop: 01/10/24 08:37 Last Infusion: 01/10/24 10:23 Dose: Infused Documented By: Admin: 01/10/24 07:55 Dose: 999 mls/hr Documented By: SUSI Magnesium Sulfate/Dextrose (Magnesium Sulfate / D5w) 1 gm in 100 mls @ 100 mls/hr IV Q1H SHAWN Stop: 01/10/24 10:22 Last Admin: 01/10/24 11:08 Dose: 100 mls/hr Documented By: ЕЛЕНА Infusion: 01/10/24 09:37 Dose: Infused Documented By: ЕЛЕНА Admin: 01/10/24 08:37 Dose: 100 mls/hr Documented By: SUSI Ioversol (Optiray 320 100ml) 100 ml IV ONCE ONE Stop: 01/10/24 05:51 Last Admin: 01/10/24 05:50 Dose: 91 ml Documented By: CITLALY Morphine Sulfate (Morphine Sulfate 4 Mg/Ml 1 Ml Carp\Vial) 4 mg IV NOW STA Stop: 01/10/24 07:38 Last Admin: 01/10/24 07:54 Dose: 4 mg Documented By: SUSI Ondansetron HCl (Ondansetron Inj 2 Mg/Ml 2 Ml Vial) 4 mg IV NOW STA Stop: 01/10/24 07:38 Last Admin: 01/10/24 07:54 Dose: 4 mg Documented By: SUSI Imaging Data Radiologist's Impression: Abdomen/Pelvis CT 01/10/24 04:31 Exam(s): CT ABDOMEN + PELVIS With Contrast IV Amt: 91 ML OPTIRAY 320 EXAM: CT Abdomen and Pelvis With Intravenous Contrast CLINICAL HISTORY: Reason for exam: abdominal pain. TECHNIQUE: Axial computed tomography images of the abdomen and pelvis with intravenous contrast. CTDI is 24 mGy and DLP is 1195.13 mGy-cm. Automated exposure control was utilized for the study. A dose lowering technique was utilized adhering to the principles of ALARA. CONTRAST: Patient received 91 ML OPTIRAY 320 of IV contrast COMPARISON: No relevant prior studies available. FINDINGS: Lung bases: There is evidence of prior granulomatous disease within the right lung. No consolidation. ABDOMEN: Liver: There is cirrhotic changes demonstrated within the liver. There is evidence of portal venous hypertension to include esophageal varices, ascites hemorrhoidal veins and splenomegaly. The spleen is 13.6 cm in maximal transverse dimension. Gallbladder and bile ducts: Multiple gallstones demonstrated. There is some pericholecystic fluid and some slight wall thickening and wall enhancement. No ductal dilation. Pancreas: Unremarkable. No mass. No ductal dilation. Spleen: See above. Adrenals: Unremarkable. No mass. Kidneys and ureters: Unremarkable. No solid mass. No hydronephrosis. Stomach and bowel: Unremarkable. No obstruction. No mucosal thickening. PELVIS: Appendix: No findings to suggest acute appendicitis. Bladder: Unremarkable. No mass. Reproductive: Unremarkable as visualized. ABDOMEN and PELVIS: Intraperitoneal space: See above. Bones/joints: No acute fracture. No dislocation. Soft tissues: Unremarkable. Vasculature: See above. Lymph nodes: Unremarkable. No enlarged lymph nodes. IMPRESSION: Cirrhotic changes to the liver was evidence of portal venous hypertension as described imaging findings raise possibility of component of acute cholecystitis. Electronically signed by: Josue Vidal MD 01/10/24 07:26 AM Discharge Plan Visit Data Chief Complaint: Abdominal Pain Stated Complaint: ABDOMINAL PAIN,BLOATING,BLEEDING ED Provider: Wiliam Rios Discharge Problem: Acute pancreatitis, Anemia, Alcohol intoxication, Alcohol abuse, Elevated bilirubin Patient Disposition: Admitted As Inpatient Discharge Instructions Interventions: ED Discharge Assessment Last Done: 01/10/24 08:23 Discharge Problem: Acute pancreatitis Qualifiers: Pancreatitis type: unspecified pancreatitis type Acute pancreatitis complication: unspecified Qualified Code(s): K85.90 - Acute pancreatitis without necrosis or infection, unspecified Anemia Qualifiers: Anemia type: unspecified type Qualified Code(s): D64.9 - Anemia, unspecified Alcohol intoxication Qualifiers: Complication of substance-induced condition: uncomplicated Qualified Code(s): F 10.920 - Alcohol use, unspecified with intoxication, uncomplicated
--- NOTE | 2024-01-10 07:27 | CT Scan Report ---
Exam(s): CT ABDOMEN + PELVIS With Contrast IV Amt: 91 ML OPTIRAY 320 EXAM: CT Abdomen and Pelvis With Intravenous Contrast CLINICAL HISTORY: Reason for exam: abdominal pain. TECHNIQUE: Axial computed tomography images of the abdomen and pelvis with intravenous contrast. CTDI is 24 mGy and DLP is 1195.13 mGy-cm. Automated exposure control was utilized for the study. A dose lowering technique was utilized adhering to the principles of ALARA. CONTRAST: Patient received 91 ML OPTIRAY 320 of IV contrast COMPARISON: No relevant prior studies available. FINDINGS: Lung bases: There is evidence of prior granulomatous disease within the right lung. No consolidation. ABDOMEN: Liver: There is cirrhotic changes demonstrated within the liver. There is evidence of portal venous hypertension to include esophageal varices, ascites hemorrhoidal veins and splenomegaly. The spleen is 13.6 cm in maximal transverse dimension. Gallbladder and bile ducts: Multiple gallstones demonstrated. There is some pericholecystic fluid and some slight wall thickening and wall enhancement. No ductal dilation. Pancreas: Unremarkable. No mass. No ductal dilation. Spleen: See above. Adrenals: Unremarkable. No mass. Kidneys and ureters: Unremarkable. No solid mass. No hydronephrosis. Stomach and bowel: Unremarkable. No obstruction. No mucosal thickening. PELVIS: Appendix: No findings to suggest acute appendicitis. Bladder: Unremarkable. No mass. Reproductive: Unremarkable as visualized. ABDOMEN and PELVIS: Intraperitoneal space: See above. Bones/joints: No acute fracture. No dislocation. Soft tissues: Unremarkable. Vasculature: See above. Lymph nodes: Unremarkable. No enlarged lymph nodes. IMPRESSION: Cirrhotic changes to the liver was evidence of portal venous hypertension as described imaging findings raise possibility of component of acute cholecystitis. Electronically signed by: Josue Vidal MD 01/10/24 07:26 AM
[2024-01-10 07:36] LABS: Appearance Urine Clear (Clear); Bilirubin Urine 2+ (Negative); Blood Urine Negative (Negative); Color Urine Dark Yellow; Glucose Urine UA Negative (Negative); Ketones Urine Negative (Negative); Leukocyte Esterase Urine Negative (Negative); Nitrite Urine Negative (Negative); Protein Urine Negative (Negative); Specific Gravity Urine 1.021 (1.000-1.030); Urobilinogen Urine Positive (Negative)
[2024-01-10] MEDS: ONDANSETRON INJ 2 MG/ML 2 ML VIAL IV STA (07:54)
[2024-01-10] MEDS: MoRPHine SULFATE 4 MG/ML 1 ML CARP\\VIAL IV STA (07:54)
[2024-01-10] MEDS: SODIUM CHLORIDE 0.9% 1,000 ML IV ONE (07:55)
[2024-01-10] MEDS: MAGNESIUM SULFATE / D5W 1 GM/100 ML BAG IV SCH (08:37)
[2024-01-10] MEDS: FAMOTIDINE 20MG IV PUSH 20 MG/5 ML SYR IV SCH (09:49)
[2024-01-10] MEDS: DOXYCYCLINE HYCLATE 100 MG in DEXTROSE 5% MINI-B 100 ML IV SCH (09:50)
[2024-01-10] MEDS: PANTOprazole 40 MG in SYRINGE 0 ML IV SCH (09:50)
[2024-01-10] MEDS: LOSARTAN POTASSIUM 50 MG TAB PO SCH (11:22)
[2024-01-10] MEDS: SUCRALFATE 1 GM TAB PO SCH (11:22)
[2024-01-10] MEDS: FOLIC ACID 1 MG in SYRINGE 9.8 ML IV SCH (11:24)
[2024-01-10] MEDS: THIAMINE HCL 100 MG in SYRINGE 9 ML IV SCH (11:25)
--- NOTE | 2024-01-10 11:27 | Ultrasound Report ---
US abdomen ltd ascites HISTORY: 58 years-old Male c/f ascites, hemoperitoneum COMPARISON: CT 01/10/2024 TECHNIQUE: Multiple real-time sonographic images of the abdomen were obtained assessing grayscale power earance FINDINGS: Heterogeneous echotexture of the liver with marginal nodularity. There is trace ascites noted through out the abdomen and pelvis. IMPRESSION: Trace abdominal pelvic ascites. ACT 112: Negative or not required by law. The above report was generated using voice recognition software. It may contain grammatical, syntax o r spelling errors. Electronically signed by: Clifford Lazo M.D. 01/10/2024 11:25 AM
[2024-01-10 12:01] LABS: Folate (Folic Acid),Ser orPlas 4.97 ng/ml (>5.38)
[2024-01-10 12:02] LABS: Vitamin B12 > 1500 pg/ml (180-914)
--- NOTE | 2024-01-10 13:10 | Ultrasound Report ---
US liver CLINICAL HISTORY: ?cholecystitis TECHNIQUE: Multiple real-time sonographic images of the right upper quadrant were obtained. Comparison: Comparison is made to CT abdomen pelvis 01/10/2024 FINDINGS: The liver is diffusely coarsened in echotexture, with a nodular contour. The liver appears shrunken i n appearance. These findings are suggestive of cirrhosis. No focal mass lesions are seen. No intr ahepatic ductal dilatation is seen. Numerous gallstones are seen. The gallbladder wall measures 4 mm . Pericholecystic fluid versus ascites is seen. A sonographic Thompson's sign was not elicited by the s onographer. The common duct measures 0.4 cm in diameter at the level of the hepatic artery. The vis ualized portions of the pancreas appear normal. The right kidney shows normal echogenicity, cortical thickness and renal contour. The right kidney sh ows no evidence of hydronephrosis or mass. No ascites or free fluid is seen in Castellanos's pouch. IMPRESSION: Negative sonographic Thompson's sign. Cholelithiasis and prominence of the gallbladder wall are seen wi th surrounding fluid which may be due to ascites. Findings are less suggestive of acute cholecystitis if the patient has not received pain medication. ACT 112: Negative or not required by law. Electronically signed by: Piotr Belle M.D. 01/10/2024 1:09 PM
--- NOTE | 2024-01-10 13:17 | Gastrointestinal Consultation ---
Date of Consultation January 10, 2024 Assessment & Plan (1) Abdominal pain: -Obtain US gallbladder given CT findings -Continue to monitor LFTs -Cannot have an EGD while intoxicated, but does have an outpatient referral arranged for this. Since he has been readmitted, he can have an EGD tomorrow if platelets are appropriate. -Continue Protonix 40 mg BID -Continue Carafate 1 gm before meals and at bedtime -Continue Famotidine 20 m BID Supervising Physician Co-Signing Physician Notes Agree with WILI Hobson Interviewed and examined patient and agree with above Abd: Soft, tender, ND Continue current therapy and supportive care Proceed with EGD in AM History of Present Illness Reason for Consultation: Epigastric pain, ?EGD Attending Physician: Wiliam Lebron DO History of Present Illness Patient is a 58 yo male who presented to the ED due to epigastric pain. Patient was recently admitted for similar issues and was unable to have an EGD due to his platelet count. He is a cirrhotic. He is actively drinking, without plans to stop, and is acutely intoxicated in the ED. Patient has noted to the ED provider that the only thing that improves his abdominal pain is alcohol. He saw his PCP recently and has an outpatient referral for an EGD. He is taking Protonix 40 mg BID as well as Famotidine 20 mg BID & Carafate 1 gm ACHS. H/H 9.6/26.8. Platelets 64,000. A CT scan in the ED does question acute cholecystitis and notes cholelithiasis. This is different from his last CT imaging. T bili slightly worse from last admission at 9.2. AST 109, ALT 30, Alk phos 259, Ethyl alcohol level 188.1. INR 1.3. Allergies Allergy/AdvReac Type Severity Reaction Status Date / Time bee venom protein (honey bee) Allergy Severe Anaphylaxis Verified 01/06/24 13:41 Home Medications Medication Instructions Recorded Confirmed Type famotidine 20 mg tablet 20 mg PO BID #60 tabs 12/31/23 01/10/24 Rx pantoprazole 40 mg tablet,delayed 40 mg PO BID #60 tabs 12/31/23 01/10/24 Rx release sucralfate 1 gram tablet 1 g PO ACHS #120 tabs 12/31/23 01/10/24 Rx doxycycline hyclate 100 mg capsule 100 mg PO BID 28 days #56 caps 01/06/24 01/10/24 Rx losartan 50 mg tablet 50 mg PO DAILY #90 tabs 01/06/24 01/10/24 Rx Patient History Medical History GERD (gastroesophageal reflux disease) Surgical History H/O endoscopic sinus surgery H/O nasal septoplasty History of open reduction and internal fixation (ORIF) procedure Family History Grandmother (Maternal) Diabetes Other No significant family history Denies family history of Ovarian cancer Prostate cancer Depression Heart disease Myocardial infarction Breast cancer Lung cancer Colorectal cancer Stroke Social History Smoking Status: Current every day smoker Tobacco Type: Cigarettes packs per day: 1; Cigarettes Per Day: smokes cigarettes 20 per day- if smokes cigars 1/2 pack- advised; Second Hand Exposure: No; Do You Dip or Chew Tobacco: No; Hx Alcohol Use: Yes Alcohol type: beer Alcohol Intake Frequency: 4 or More x per/Week Hx Substance Use: No Preferred Language: Montserratian Communication Ability: Effective Visual Impairment: Limited 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: Normal Director Medical Surgical Required: No Beliefs That Will Affect Care: None marital status: single Current Living Situation: Alone current occupational status: employed How many Children do You have: 0 Feels Safe at Home: Yes Safety Concerns: Feels Safe At This Time Childhood Exposure to Second-Hand Smoke: Yes Diet: regular caffeine: Yes during the past year weight has: remained stable Dental Care, Regularly: No Physical Activity Frequency: Daily Seatbelt Use: never Sunscreen Use: No Assistive Devices: Glasses Review of Systems Gastrointestinal: + abdominal pain and + constipation Physical Exam Constitutional: no acute distress Respiratory: normal respiratory effort Gastrointestinal (Abdomen): normal bowel sounds, soft, nontender, no hepatosplenomegaly Psychiatric: Orientation: alert and oriented x 3 Results & Data Vital Signs (Past 12 Hours) Vital Signs Temp Pulse Pulse Resp BP BP Pulse Ox 01/10/24 11:06 36.4 C L 87 19 127/73 96 01/10/24 10:26 63 18 118/63 93 01/10/24 09:21 92 H 01/10/24 09:19 36.6 C 96 H 18 111/60 96 01/10/24 08:29 85 16 181/102 H 93 01/10/24 07:19 90 18 154/93 H 96 01/10/24 06:15 86 14 95 01/10/24 06:10 158/111 H 01/10/24 05:42 85 19 01/10/24 05:36 83 17 97 01/10/24 05:30 145/82 H 01/10/24 05:24 82 19 99 01/10/24 05:03 81 11 L 98 01/10/24 05:00 154/93 H 01/10/24 04:51 159/97 H 01/10/24 04:51 84 01/10/24 04:51 86 17 97 01/10/24 04:51 85 12 159/97 H 97 01/10/24 04:19 37.4 C 86 18 152/86 H 97 O2 Del Method 01/10/24 11:06 Room Air 01/10/24 10:26 Room Air 01/10/24 09:21 01/10/24 09:19 Room Air 01/10/24 08:29 Room Air 01/10/24 07:19 01/10/24 06:15 01/10/24 06:10 01/10/24 05:42 01/10/24 05:36 01/10/24 05:30 01/10/24 05:24 01/10/24 05:03 01/10/24 05:00 01/10/24 04:51 01/10/24 04:51 01/10/24 04:51 Room Air 01/10/24 04:51 Room Air 01/10/24 04:19 Room Air PG Care Time/CCT Total # of Minutes Spent Total Time Spent with Patient: Total time spent is greater than 50% in coordination of care (as documented) at patient's floor/unit and/or counseling patient: Coding Level of Care Code 31650 IN/OBS CONSULT LVL 4,60M Diagnoses Abdominal pain R10.9
[2024-01-10] MEDS: cefTRIAXone SODIUM 2,000 MG/50 ML BAG IV SCH (14:29)
[2024-01-10] MEDS ORDERED: SIMETHICONE 80 MG CHEW PO PRN (16:09)
[2024-01-10] MEDS: LACTATED RINGER'S 1,000 ML IV ONE (16:24)
--- NOTE | 2024-01-10 16:31 | History & Physical Report ---
Date of Service January 10, 2024 Assessment & Plan (1) Abdominal pain: Plan Abdominal pain: -4 months of intermittent abd pain, worse within the last 1 week. Radiating to back bilaterally and "belt line." - ABD CT: Cirrhotic changes, portal venous hypertension (esophageal varices, ascites hemorrhoidal veins, and splenomegaly). Multiple gallstones demonstrated. ome pericholecystic fluid and some slight wall thickening and wall enhancement. No ductal dilation. Pancreas: Unremarkable. No mass. No ductal dilation. - ABD US: Heterogeneous echotexture of the liver with marginal nodularity. There is trace ascites noted throughout the abdomen and pelvis. IMPRESSION: Trace abdominal pelvic ascites. -Consulted GI: appreciate consult. -Obtain US gallbladder given CT findings (completed) -Continue to monitor LFTs -Cannot have an EGD while intoxicated, but does have an outpatient referral arranged for this. Since he has been readmitted, he can have an EGD tomorrow if platelets are appropriate. -Continue Protonix 40 mg BID -Continue Carafate 1 gm before meals and at bedtime -Continue Famotidine 20 m BID -Placed ordered for: FOBT -Due to concern of SBP, will start ceftriaxone IV. -Medication Orders: Protonix 40 mg IV BID. Famotidine 20 MG IV, Simethicone PO, morphine sulfate 4 mg IV Q3H PRN, Lactated ringers IV bolus Esophageal Varices -Identified on CT. Patient does not endorse recent vomiting. -If patient develops hematemesis, will consider: 2 large bore IV, beta jenna, and octreotide - Patient is NPO. Switched home PO famotidine and pantoprazole to IV, as above. Alcohol Use Disorder Patient not interested in cessation. States that he has already cut down to his current amount of alcohol per day. He is high risk as he is a daily drinker, and binge drinks on Saturdays. - SHARMIN protocol. No evidence of tremors, diaphoresis, tachycardia. - Ordered B12 and B9 labs. - Ordered Thiamine 100 mg IV QAM and Folate 1 mg IV QAM. Anemia, chronic -Type and cross in chart. -Trend CBC daily. -FOBT order placed (see abdominal pain) Thrombocytopenia, chronic Suspected due to cirrhosis and alcoholic suppression Evaluated by hematology during last visit. Per their recommendations, patient should follow up outpatient. - Trending CBC - Will consider consulting hematology if thrombocytopenia worsens. Porphyria cutanea tarda, chronic - Diffuse rash present across shoulders consistent with PCT. - Evaluated by hematology during last visit. Per their recommendations, patient should follow up outpatient. With history of phlebotomy and ferritin levels greater than 600 and 2019 Hepatitis C screening and HIV testing negative in both 2018 and 2023 Hypertension, chronic Patient reports losartan did not work for him and he is not very interested in taking blood pressure medicine. Is agreeable to trying amlodipine as he does not think he had been on this before Does have a history of lacunar infarct Elevated Bilirubin -9.2 mg/dl. Elevated from 6.9 mg/dl at discharge. -Ordered liver panel to evaluate conjugated vs unconjugated levels. Lyme Disease -Starting ceftriaxone for SBP coverage. -Discontinue doxycycline. Hypomagnesium, acute -Ordered Magnesium sulfate, 1 gm in 100 mg IV -Continue to trend daily Prolonged PT/INR -Continue to trend Hematuria, intermittent over 4 months -Not endorsing hematuria since last visit -Following as outpatient and likely due to severe thrombocytopenia H&H trended History of CVA With history of left lacunar pontine infarct Aspirin held due to hematuria FEN: NPO Code status: Full code DVT ppx: SCDs Consults: GI PT/OT: N/A Case management: Dispo: tele med Admission and Anticipated Discharge Date Admission Date: January 10, 2024 History of Present Illness Primary Care Provider: MADELIN Hilario Mr. Denis is a 58 year old male with a complex PMHx notable for of AUD, alcoholic liver cirrhosis, porphyria cutanea tarda, GI bleed, and stroke in 2017 who presented to the ED on 01/09/24 (1 day ago) for concerns of abdominal pain. He was recently d/c from the hospital on 12/30 for abdominal pain and non- bilious, non-bloody vomiting, with concern for PUD or gastritis. He was discharged on BID PPI, H2, and QID sucralfate. He states that he "takes his medications when he is able to." He reports that he was home for about 1/2 a day before his abdominal pain returned. Abdominal Pain Onset: 4 months ago, worsening over the last 1 week Location: Worst over the "belt line" Provocation/Palliation: drinking alcohol Associated: +nausea, -vomiting, - headache, -CP, -SOB, -dysuria, -urinary frequency, -melena/hematochezia, -hematuria, +chills. Last BM 2 days ago. Improved: "Drinking alcohol" Quality: Patient states his stomach is "as hard as a rock" Radiation: back bilaterally and down to the "belt line". Alcohol Use -Chronic alcohol use disorder: "I'm not gonna stop drinking" -Alcohol of choice: Rum, "vodka makes my stomach hurt" -Drinks 2 mixed drinks after worked, followed by 1-2 beers after shower. -This current amount is a decreased from 1/2 gal of rum a few months ago. -Last drink was Wednesday 7 PM -No history of withdrawal. Vision -Vision has been getting worse over the last 4 months -Entire field of vision is "fuzzy." Still present when he puts on his glasses. -No eye pain. Skin bleeding -Skin has been bleeding around his shoulders Tick bite -Has been on doxycycline secondary to a tick bite. Had another tick bite recently, so PCP continued doxycycline dose. Tobacco Use -"I smoke like a chimney" -Was interested in a nicotine patch during last visit Allergies Allergy/AdvReac Type Severity Reaction Status Date / Time bee venom protein (honey bee) Allergy Severe Anaphylaxis Verified 01/06/24 13:41 Home Medications Medication Instructions Recorded Confirmed Type famotidine 20 mg tablet 20 mg PO BID #60 tabs 12/31/23 01/10/24 Rx pantoprazole 40 mg tablet,delayed 40 mg PO BID #60 tabs 12/31/23 01/10/24 Rx release sucralfate 1 gram tablet 1 g PO ACHS #120 tabs 12/31/23 01/10/24 Rx doxycycline hyclate 100 mg capsule 100 mg PO BID 28 days #56 caps 01/06/24 01/10/24 Rx losartan 50 mg tablet 50 mg PO DAILY #90 tabs 01/06/24 01/10/24 Rx Past Med/Surg History Problem List (Updated 01/10/24 @ 16:51 by Betzaida Faulkner) Abdominal pain (Acute) Elevated bilirubin (Acute) Alcohol abuse (Acute) Alcohol intoxication (Acute) Anemia (Acute) Acute pancreatitis (Acute) History of stroke Hematuria (Acute) Abdominal pain (Acute) Cholelithiasis Liver cirrhosis, alcoholic GIB (gastrointestinal bleeding) (Acute) Alcohol use (Acute) daily drinker Atrial fibrillation (Acute) Hematemesis Anxiety Tear of medial meniscus of left knee Encounter for pre-operative examination Headache Cervical pain (neck) Tobacco dependence 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-no current deficits Hypertension (Chronic) pt reports home readings range 180s/110-120s Medical History GERD (gastroesophageal reflux disease) controlled, stable per pt Surgical History H/O endoscopic sinus surgery H/O nasal septoplasty History of open reduction and internal fixation (ORIF) procedure right foot - 07/2022 [facility] Family History Grandmother (Maternal) Diabetes Other No significant family history Denies family history of Ovarian cancer Prostate cancer Depression Heart disease Myocardial infarction Breast cancer Lung cancer Colorectal cancer Stroke Social History Smoking Status: Current every day smoker Tobacco Type: Cigarettes packs per day: 1; Cigarettes Per Day: smokes cigarettes 20 per day- if smokes cigars 1/2 pack- advised; Second Hand Exposure: No; Do You Dip or Chew Tobacco: No; Hx Alcohol Use: Yes Alcohol type: beer Alcohol Intake Frequency: 4 or More x per/Week Hx Substance Use: No Preferred Language: Slovenian Communication Ability: Effective Visual Impairment: Limited 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: Normal 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 A total of 10 systems reviewed and were otherwise negative. Physical Exam Physical Exam: Constitutional: Uncomfortable-appearing, no acute distress. HEENT: NCAT, +scleral icterus. EMOI. PERRL. Dried blood present on top and bottom lips. CV: Regular rhythm, no murmur appreciated, extremities well-perfused, no LE edema. Resp: CTABL, no wheezes/rales/rhonchi appreciated,no increased work of breathing GI: Distended, diffusely tender to palpation in all four quadrants, BS normoactive. MSK: No gross deformities appreciated. Skin: Warm. Multiple shallow, blistering lesions present across the upper back bilaterally. Neuro: Alert, oriented, no focal neurologic deficit appreciate. Sensation intact in feet bilaterally. Results & Data Results & Data Vital Signs (Past 12 Hours) Vital Signs Temp Pulse Pulse Resp BP BP Pulse Ox 01/10/24 08:29 85 16 181/102 H 93 01/10/24 07:19 90 18 154/93 H 96 01/10/24 06:15 86 14 95 01/10/24 06:10 158/111 H 01/10/24 05:42 85 19 01/10/24 05:36 83 17 97 01/10/24 05:30 145/82 H 01/10/24 05:24 82 19 99 01/10/24 05:03 81 11 L 98 01/10/24 05:00 154/93 H 01/10/24 04:51 159/97 H 01/10/24 04:51 84 01/10/24 04:51 86 17 97 01/10/24 04:51 85 12 159/97 H 97 01/10/24 04:19 99.3 F 86 18 152/86 H 97 O2 Del Method 01/10/24 08:29 Room Air 01/10/24 07:19 01/10/24 06:15 01/10/24 06:10 01/10/24 05:42 01/10/24 05:36 01/10/24 05:30 01/10/24 05:24 01/10/24 05:03 01/10/24 05:00 01/10/24 04:51 01/10/24 04:51 01/10/24 04:51 Room Air 01/10/24 04:51 Room Air 01/10/24 04:19 Room Air Laboratory Results Laboratory Results - last 24 hr 01/10/24 01/10/24 04:49 06:20 WBC 7.04 RBC 2.98 L Hgb 9.6 L Hct 25.8 L MCV 86.6 MCH 32.2 MCHC 37.2 H RDW Std Deviation 65.0 H RDW Coeff of Jason 20.7 H Plt Count 64 L Immature Gran % (Auto) 0.7 Neut % (Auto) 63.2 Lymph % (Auto) 23.0 Wayne % (Auto) 10.7 Eos % (Auto) 1.3 Baso % (Auto) 1.1 Neut # (Auto) 4.45 Lymph # (Auto) 1.62 Wayne # (Auto) 0.75 H Eos # (Auto) 0.09 Baso # (Auto) 0.08 Immature Gran # (Auto) 0.05 Polychromasia 2+ Anisocytosis Present Target Cells 3+ Rouleaux 1+ PT 13.5 H INR 1.3 H Sodium 139 Potassium 3.5 Chloride 107 Carbon Dioxide 24 Anion Gap 8 BUN 10 Creatinine 0.99 Est Cr Clr Drug Dosing 96.9 Est GFR ( Amer) 98.3 Est GFR (Non-Af Amer) 84.8 BUN/Creatinine Ratio 10.1 Glucose 92 Lactate 1.4 Calcium 8.4 L Magnesium 1.6 L Total Bilirubin 9.2 H AST 109 H ALT 30 Alkaline Phosphatase 259 H Ammonia 30.0 Troponin I High Sens 6.9 Total Protein 8.1 Albumin 2.9 L Globulin 5.2 H Albumin/Globulin Ratio 0.6 L Lipase 246 H Urine Color Dark Yellow Urine Appearance Clear Urine pH 7.0 Ur Specific [place] 1.021 Urine Protein Negative Urine Glucose (UA) Negative Urine Ketones Negative Urine Blood Negative Urine Nitrite Negative Urine Bilirubin 2+ H Urine Urobilinogen Positive H Ur Leukocyte Esterase Negative Ethyl Alcohol mg/dL 188.1 H Blood Type O Positive Antibody Screen NEGATIVE Diagnostic Findings Exam(s): CT ABDOMEN + PELVIS With Contrast IV Amt: 91 ML OPTIRAY 320 EXAM: CT Abdomen and Pelvis With Intravenous Contrast CLINICAL HISTORY: Reason for exam: abdominal pain. TECHNIQUE: Axial computed tomography images of the abdomen and pelvis with intravenous contrast. CTDI is 24 mGy and DLP is 1195.13 mGy-cm. Automated exposure control was utilized for the study. A dose lowering technique was utilized adhering to the principles of ALARA. CONTRAST: Patient received 91 ML OPTIRAY 320 of IV contrast COMPARISON: No relevant prior studies available. FINDINGS: Lung bases: There is evidence of prior granulomatous disease within the right lung. No consolidation. ABDOMEN: Liver: There is cirrhotic changes demonstrated within the liver. There is evidence of portal venous hypertension to include esophageal varices, ascites hemorrhoidal veins and splenomegaly. The spleen is 13.6 cm in maximal transverse dimension. Gallbladder and bile ducts: Multiple gallstones demonstrated. There is some pericholecystic fluid and some slight wall thickening and wall enhancement. No ductal dilation. Pancreas: Unremarkable. No mass. No ductal dilation. Spleen: See above. Adrenals: Unremarkable. No mass. Kidneys and ureters: Unremarkable. No solid mass. No hydronephrosis. Stomach and bowel: Unremarkable. No obstruction. No mucosal thickening. PELVIS: Appendix: No findings to suggest acute appendicitis. Bladder: Unremarkable. No mass. Reproductive: Unremarkable as visualized. ABDOMEN and PELVIS: Intraperitoneal space: See above. Bones/joints: No acute fracture. No dislocation. Soft tissues: Unremarkable. Vasculature: See above. Lymph nodes: Unremarkable. No enlarged lymph nodes. IMPRESSION: Cirrhotic changes to the liver was evidence of portal venous hypertension as described imaging findings raise possibility of component of acute cholecystitis. US abdomen ltd ascites HISTORY: 58 years-old Male c/f ascites, hemoperitoneum COMPARISON: CT 01/10/2024 TECHNIQUE: Multiple real-time sonographic images of the abdomen were obtained assessing grayscale appearance FINDINGS: Heterogeneous echotexture of the liver with marginal nodularity. There is trace ascites noted throughout the abdomen and pelvis. IMPRESSION: Trace abdominal pelvic ascites. ACT 112: Negative or not required by law. The above report was generated using voice recognition software. It may contain grammatical, syntax or spelling errors. US liver CLINICAL HISTORY: ?cholecystitis TECHNIQUE: Multiple real-time sonographic images of the right upper quadrant were obtained. Comparison: Comparison is made to CT abdomen pelvis 01/10/2024 FINDINGS: The liver is diffusely coarsened in echotexture, with a nodular contour. The liver appears shrunken in appearance. These findings are suggestive of cirrhosis. No focal mass lesions are seen. No intrahepatic ductal dilatation is seen. Numerous gallstones are seen. The gallbladder wall measures 4 mm. Pericholecystic fluid versus ascites is seen. A sonographic Thompson's sign was not elicited by the field hauler. The common duct measures 0.4 cm in diameter at the level of the hepatic artery. The visualized portions of the pancreas appear normal. The right kidney shows normal echogenicity, cortical thickness and renal contour. The right kidney shows no evidence of hydronephrosis or mass. No ascites or free fluid is seen in Castellanos's pouch. IMPRESSION: Negative sonographic Thompson's sign. Cholelithiasis and prominence of the gallbladder wall are seen with surrounding fluid which may be due to ascites. Findings are less suggestive of acute cholecystitis if the patient has not received pain medication. ACT 112: Negative or not required by law. Electronically signed by: Piotr Belle M.D. 01/10/2024 1:09 PM Medications Administered Current Medications Magnesium Sulfate/Dextrose (Magnesium Sulfate / D5w) 1 gm in 100 mls @ 100 mls/hr IV Q1H SHAWN Stop: 01/10/24 10:22 Last Admin: 01/10/24 08:37 Dose: 100 mls/hr Pantoprazole Sodium 40 mg/ (Syringe) 10 mls @ 5 mls/min IV BID SHAWN Stop: 02/09/24 08:59 Famotidine (Pepcid 20mg Iv Push) 20 mg in 5 mls @ 2.5 mls/min IV Q12H SHAWN Stop: 02/09/24 08:29 Doxycycline Hyclate 100 mg/ (Dextrose) 100 mls @ 50 mls/hr IV Q12H SHAWN Stop: 02/03/24 08:44 Losartan Potassium (Losartan Potassium 50 Mg Tab) 50 mg PO DAILY SHAWN Stop: 02/09/24 08:59 Sucralfate (Sucralfate 1 Gm Tab) 1 gm PO ACHS SHAWN Stop: 02/09/24 11:29 Supervising Physician Co-Signing Physician Notes I personally examined the patient and verified all [place]th[place] points of history and exam, discussed case, and agree with decision making with Justin Faulkner MS4 and Dr Park Abdominal painseems to be worsening a little bit lower than before. Bowel movements are normal for him. Not enough ascites noted on ultrasound for paracentesis. Vitals noted, in general he appears fatigued and a bit uncomfortable. HEENT normocephalic atraumatic mucous membranes moist, poor dentition. Abdomen is soft moderately distended but without a fluid wave, feels more to be a gaseous distention. Lower epigastric/slightly supraumbilical tenderness without guarding rebound or rigidity. Less tender epigastrium Abdominal painmain differential appears to be alcoholic pancreatitis versus alcoholic gastritis/peptic ulcer diseasewill give a liter of LR, and run at maintenance rategiven that he is hemodynamically stable, while pancreatitis is fairly high on my differential, I certainly do not want to precipitate significant ascites given that he has a mild amount. Initially was very concerned about rapidly worsening ascites or SBP given his new onset of distention and more diffuse abdominal pain than beforebut fortunately this appears to not be the case. Continue acid suppression. Continue ceftriaxone until it is clear that he does not have upper GI mucosal involvement along with his varices. Greatly appreciate GI being willing to scope as long as his platelets are up enough for this to be safe. Alcohol abusethiamine, folate, symptom triggered benzodiazepines for withdrawal. Patient has been adamant about not wanting to quit in the pastas recently as when I had him 2 weeks ago. Today, we discussed his situation appearing even more concerning than it was before, and that it might be too late for him to recover should he stop drinking now, but there is at least a small chance that can happenand at the same time if he continues drinking, I am highly concerned he will be by the end of the year with end-stage liver disease. We discussed whether or not he would regret this choiceand while he did not necessarily expressed that he would regret drinking himself to , he also was open and saying he is not ready to yetand at least was considering alcohol cessation in that context. otherwise as above
[2024-01-10] MEDS: LACTATED RINGER'S 1,000 ML IV SCH (17:28)
--- NOTE | 2024-01-10 17:43 | Billing Data ---
Date of Service January 10, 2024 Coding Level of Care Code 78262 INT INP/OBS CARE
[2024-01-11 06:25] LABS: Albumin Globulin Ratio 0.6 (0.9-2); Albumin Level 2.6 gm/dl (3.4-5.0); BUN Creatinine Ratio 13.7 (10-20); Bilirubin,Total 12.6 mg/dl (0.2-1.0); Calcium 8.2 mg/dl (8.6-10.3); Creatinine Clr Calc Pharmacy 100.9 ml/min; Est GFR (African American) 103.3 ml/min; Est GFR (Non-African American) 89.1 ml/min; Globulin 4.4 gm/dl (2.5-4.0); Potassium 3.9 mmol/L (3.5-5.1)
[2024-01-11 06:37] LABS: INR 1.4 (0.9-1.1); Prothrombin Time 14.5 Seconds (9.0-12.0)
[2024-01-11 06:55] LABS: Hematocrit (blood only) 24.3 % (42.0-52.0); Hemoglobin 9.1 g/dl (14.0-18.0); Mean Corpuscular Hemoglobin 32.6 pg (25.0-34.0); Mean Corpuscular Hgb Conc 37.4 g/dL (32.0-36.0); Mean Corpuscular Volume 87.1 fL (80.0-100.0); Platelet Count 46 K/uL (130-400); RDW Coefficient of Variation 20.9 % (11.5-14.5); Red Blood Count 2.79 M/uL (4.70-6.10); White Blood Count 6.48 K/ul (4.8-10.8)
[2024-01-11 07:00] LABS: Anisocytosis Present; Basophils # (auto) 0.06 K/uL (0.00-0.20); Basophils % (auto) 0.9 %; Eosinophils # (auto) 0.08 K/uL (0.00-0.50); Eosinophils % (auto) 1.2 %; Immature Granulocytes # (auto) 0.05 K/uL (0.01-0.20); Immature Granulocytes % (auto) 0.8 %; Lymphocytes # (auto) 1.43 K/uL (1.20-3.40); Lymphocytes % (auto) 22.1 %; Monocytes # (auto) 0.82 K/uL (0.11-0.59); Monocytes % (auto) 12.7 %; Neutrophils # (auto) 4.04 K/uL (1.40-6.50); Neutrophils % (auto) 62.3 %; Target Cells 2+
[2024-01-11] MEDS: SODIUM CHLORIDE 0.9% 500 ML IV SCH (08:27)
[2024-01-11 08:35] LABS: Magnesium 1.6 mg/dl (1.7-2.4)
--- NOTE | 2024-01-11 08:43 | History & Physical Bridge Note ---
Date of Service January 11, 2024 History & Physical Bridge Note I have examined the patient, reviewed the History & Physical and in the interval since the performance of the History & Physical I have noted the following changes of clinical significance: no changes noted Patient is a 58 yo male with epigastric pain. The patient had melena overnight. H/H 9.1/24.3. Plt count 46 this AM. Keep NPO and proceed with EGD. Supervising Physician Co-Signing Physician Notes Agree with WILI Hobson as above Abd: Soft, NT, distended, +BS Continue current therapy and supportive care Proceed with EGD now.
--- NOTE | 2024-01-11 08:46 | Anesthesiology Consultation ---
Date of Service January 11, 2024 Assessment & Plan Chart Review Chart Review: Acceptable Risk for Surgery, Patient NOT seen in Pre Admission Testing and entry level account representative initiated Consults Requested none ASA ASA3 Proposed Anesthesia Anesthesia Type: MAC Risk / Benefits Reviewed With: PT / POA / Parent / Guardian, Accepts Plan and Informed Consent Obtained History Surgery Operation Date: 01/11/24 16:30 Proposed Procedures p Esophagogastroduodenoscopy Dr Montejo - Dawson Goodman Case, DO Height/Weight Height: 6 ft 2 in Weight: 90.35 kg Allergies Allergy/AdvReac Type Severity Reaction Status Date / Time bee venom protein (honey bee) Allergy Severe Anaphylaxis Verified 01/06/24 13:41 Medications Home Medications Medication Instructions Recorded Confirmed Last Taken famotidine 20 mg tablet 20 mg PO BID #60 tabs 12/31/23 01/10/24 01/09/24 pantoprazole 40 mg tablet,delayed 40 mg PO BID #60 tabs 12/31/23 01/10/24 01/09/24 release sucralfate 1 gram tablet 1 g PO ACHS #120 tabs 12/31/23 01/10/24 01/09/24 doxycycline hyclate 100 mg capsule 100 mg PO BID 28 days #56 caps 01/06/24 01/10/24 01/09/24 losartan 50 mg tablet 50 mg PO DAILY #90 tabs 01/06/24 01/10/24 01/09/24 Active Medications Generic Name Dose Route Start Last Admin Trade Name Freq PRN Reason Stop Dose Admin Pantoprazole Sodium 40 mg/ 10 mls @ 5 mls/min 01/10/24 09:00 01/10/24 20:42 Syringe IV 02/09/24 08:59 5 mls/min BID SHAWN Administration Famotidine 20 mg in 5 mls @ 2.5 mls/min 01/10/24 08:30 01/10/24 20:42 Pepcid 20mg Iv Push IV 02/09/24 08:29 2.5 mls/min Q12H SHAWN Administration Thiamine HCl 100 mg/ Syringe 10 mls @ 2 mls/min 01/10/24 10:30 01/10/24 11:25 IV 02/09/24 10:29 2 mls/min QAM SHAWN Administration Folic Acid 1 mg/ Syringe 10 mls @ 5 mls/min 01/10/24 10:30 01/10/24 11:24 IV 02/09/24 10:29 5 mls/min QAM SHAWN Administration Ceftriaxone Sodium 2,000 mg in 50 mls @ 100 mls/hr 01/10/24 14:30 01/10/24 15:06 Rocephin IV 01/20/24 14:29 Infused Q24H SHAWN Infusion Lactated Ringer's 1,000 mls @ 125 mls/hr 01/10/24 16:15 01/11/24 01:01 Lr IV 02/09/24 16:14 125 mls/hr .Q8H SHAWN Administration Sodium Chloride 500 mls @ 15 mls/hr 01/11/24 07:30 01/11/24 08:27 Nss IV 01/12/24 07:29 15 mls/hr .Q24H SHAWN Administration Losartan Potassium 50 mg 01/10/24 09:00 01/10/24 11:22 Losartan Potassium 50 Mg Tab PO 02/09/24 08:59 50 mg DAILY SHAWN Administration Sucralfate 1 gm 01/10/24 11:30 01/10/24 20:42 Sucralfate 1 Gm Tab PO 02/09/24 11:29 1 gm ACHS SHAWN Administration NPO Date Last Intake of Fluids: 01/11/24 Time Last Intake of Fluids: 06: Date Last Intake of Solids: 01/07/24 Past Medical History Medical History GERD (gastroesophageal reflux disease) controlled, stable per pt Exercise / Class Metabolic Activity II 4-5 Yardwork/Stairs/Walk up hill Past Family History Family History Grandmother (Maternal) Diabetes Other No significant family history Denies family history of Ovarian cancer Prostate cancer Depression Heart disease Myocardial infarction Breast cancer Lung cancer Colorectal cancer Stroke Past Surgical History Surgical History H/O endoscopic sinus surgery H/O nasal septoplasty History of open reduction and internal fixation (ORIF) procedure right foot - 07/2022 [facility] Past Anesthesia History No Hx of Anesthesia Complications and No Family Hx of Anesthesia Complications History of PONV No Hx of PONV and No Hx of Motion Sickness Social History Smoking Status: Current every day smoker tobacco type: cigarettes and cigars Smoking cigarettes per day: smokes cigarettes 20 per day- if smokes cigars 1/2 pack- advised Do You Dip or Chew Tobacco: No Hx Alcohol Use: Yes Alcohol type: beer alcohol intake frequency: 0-2 drinks per day Hx Substance Use: No substance use type: does not use Physical Exam Vital Signs Last Vital Signs Temp 37.4 C 01/11/24 08:28 Pulse 83 01/11/24 08:28 Resp 18 01/11/24 08:28 BP 155/81 H 01/11/24 08:28 Pulse Ox 95 01/11/24 08:28 O2 Del Method Room Air 01/11/24 08:28 Constitutional no acute distress ENMT Mouth: + poor dentition, + chipped teeth and + loose teeth (? #10 very loose) Thyromental Distance: > or= 3.5 Finger Breadths Mallampati Class: II Neck normal visual inspection, trachea midline and + facial hair; neck extension not limited Respiratory normal respiratory effort; no respiratory distress Auscultation: lungs clear to auscultation bilaterally; no crackles, no rhonchi and no wheezes Cardiovascular Rate/Rhythm: regular rate and regular rhythm Heart Sounds: no gallop, no murmur and no cardiac rub Musculoskeletal Head/Neck/Chest: full ROM of neck Neurologic moves all extremities and awake Psychiatric Orientation: alert and oriented x 3 Testing Laboratory Results 01/11/24 05:24 01/11/24 05:24 PT 14.5 Seconds (9.0-12.0) H 01/11/24 05:24 INR 1.4 (0.9-1.1) H 01/11/24 05:24 Urine Color Dark Yellow 01/10/24 06:20 Urine Appearance Clear (Clear) 01/10/24 06:20 Urine pH 7.0 (4.5-7.5) 01/10/24 06:20 Ur Specific [place] 1.021 (1.000-1.030) 01/10/24 06:20 Urine Protein Negative (Negative) 01/10/24 06:20 Urine Glucose (UA) Negative (Negative) 01/10/24 06:20 Urine Ketones Negative (Negative) 01/10/24 06:20 Urine Nitrite Negative (Negative) 01/10/24 06:20 Ur Leukocyte Esterase Negative (Negative) 01/10/24 06:20 Blood Type O Positive 01/10/24 04:49 Antibody Screen NEGATIVE 01/10/24 04:49
[2024-01-11] MEDS ORDERED: STAT IV/IM STA (09:26)
--- NOTE | 2024-01-11 09:30 | GI REPORT ---
Patient Name: Tobi Denis Procedure Date: 01/11/2024 8:37 AM Date of : 1965 Admit Type: Inpatient Age: 58 Gender: Male Attending MD: Dawson Montejo DO, Procedure: Upper GI endoscopy Providers: Dawson Montejo DO Referring MD: MADELIN Aviles Indications: Epigastric abdominal pain, Cirrhosis with UGI bleeding suspected esophageal varices Medicines: Monitored Anesthesia Care Complications: No immediate complications. Estimated Blood Loss: Estimated blood loss: none. Procedure: Pre-Anesthesia Assessment: - Prior to the procedure, a History and Physical was performed, and patient medications and allergies were reviewed. The patient's tolerance of previous anesthesia was also reviewed. The risks and benefits of the procedure and the sedation options and risks were discussed with the patient. All questions were answered, and informed consent was obtained. Prior Anticoagulants: The patient has taken no anticoagulant or antiplatelet agents. ASA Grade Assessment: III - A patient with severe systemic disease. After reviewing the risks and benefits, the patient was deemed in satisfactory condition to undergo the procedure. After obtaining informed consent, the endoscope was passed under direct vision. Throughout the procedure, the patient's blood pressure, pulse, and oxygen saturations were monitored continuously. The Endoscope was introduced through the mouth, and advanced to the second part of duodenum. The upper GI endoscopy was accomplished without difficulty. The patient tolerated the procedure well. Findings: Grade II varices were found in the middle third of the esophagus and in the lower third of the esophagus. They were medium in size. Five bands were successfully placed with complete eradication, resulting in deflation of varices. Bleeding had stopped at the end of the procedure. Moderate portal hypertensive gastropathy was found in the stomach. The examined duodenum was normal. Impression: - Grade II esophageal varices. Completely eradicated. Banded. - Portal hypertensive gastropathy. - Normal examined duodenum. - No specimens collected. Recommendation: - [facility] care. - Clear liquid diet. - Administer an IV bolus of 100 micrograms of octreotide followed by an infusion of 50 micrograms per hour for 5 days. - Start Nadolol 20 mg by mouth daily - Use Protonix (pantoprazole) 40 mg IV BID. - Discussed with patient his need for immediate cessation of alcohol consumption. - Repeat upper endoscopy in 2 weeks for retreatment. Dawson WillamLois Montejo, DO 01/11/2024 9:29:23 AM This report has been signed electronically. Note Initiated On: 01/11/2024 8:37 AM Number of Addenda: 0 I attest to the content of the Intraoperative Record and orders documented therein, exceptions below {[id number]}
--- NOTE | 2024-01-11 09:34 | Gastroenterology Progress Note ---
Date of Service January 11, 2024 Assessment & Plan (1) Bleeding esophageal varices due to alcoholic liver disease: Plan: -Begin Octreotide with a bolus of 100 mcg followed by 50 mcg/hr x 5 days -Ceftriaxone x 5 days -Begin Nadolol 20 mg daily -Monitor CBC, monitor for s/s of GI bleeding -Will need to continue Protonix 40 mg BID on discharge as well; Outpatient notes from PCP indicate plans for a slow taper, but I would not recommend decreasing this dosage at all due to the increased risk of bleeding. -Strongly advise alcohol cessation, though patient has expressed this will not happen -Further outpatient cirrhosis management is recommended -Repeat EGD in 2 weeks is scheduled for 01/26/24 Admission and Anticipated Discharge Date Admission Date: January 10, 2024 Subjective Patient is a 58 yo male with epigastric pain. Overnight, he developed melena. Platelets were 64 this AM. EGD was completed this morning. He was noted to have a variceal bleed. Patient did make it clear he has no intention of alcohol cessation. H/H 9.1.3. Review of Systems Constitutional: + weakness Gastrointestinal: + abdominal pain and + melena Physical Exam Constitutional: well developed Respiratory: normal respiratory effort Gastrointestinal (Abdomen): normal bowel sounds, soft, nontender, no hepatosplenomegaly Psychiatric: Orientation: alert and oriented x 3 Results & Data Results & Data Vital Signs (Past 12 Hours) Vital Signs Temp Pulse Pulse Resp BP Pulse Ox O2 Del Method 01/11/24 08:28 37.4 C 83 18 155/81 H 95 Room Air 01/11/24 07:34 37.2 C 92 H 18 135/86 94 Room Air 01/11/24 03:46 37.0 C 80 18 148/79 H 93 Room Air 01/10/24 23:21 87 01/10/24 23:19 36.9 C 86 18 147/76 H 96 Room Air 01/10/24 22:00 Room Air PG Care Time/CCT Total # of Minutes Spent Total Time Spent with Patient: Total time spent is greater than 50% in coordination of care (as documented) at patient's floor/unit and/or counseling patient: Coding Level of Care Code 78318 SUB INP/OBS CARE 3/50MIN Diagnoses Bleeding esophageal varices due to alcoholic liver disease K70.9; I85.11
[2024-01-11] MEDS: LIDOCAINE 2% 2 ML VIAL/AMP(20MG/ML) INFIL ONE (10:33)
[2024-01-11] MEDS: PROPOFOL IV EMULSION 10 MG/ML 20 ML VIAL IV ONE ×2 (10:33→10:34)
[2024-01-11] MEDS: OCTREOTIDE BOLUS FROM BAG IV ONE ×2 (10:34→11:08)
[2024-01-11] MEDS: POLYETHYLENE (MIRALAX) 17 GM PACK PO SCH (10:55)
[2024-01-11] MEDS: OCTREOTIDE ACETATE 500 MCG in 0.9 % SODIUM CHLORIDE 100 ML IV SCH (10:55)
[2024-01-11 11:02] LABS: Bilirubin Direct 6.8 mg/dl (0-0.2)
[2024-01-11] MEDS: MoRPHine SULFATE 2 MG/ML CARP IV PRN (11:23)
--- NOTE | 2024-01-11 11:53 | Anesthesiology Progress Note ---
Date of Service January 11, 2024 Anesthesia Post Procedure Vital Signs Vital Signs: Temp Pulse Pulse Pulse Resp BP Pulse Ox 01/11/24 11:28 36.7 C 81 18 176/95 H 96 01/11/24 10:00 82 20 157/96 H 97 01/11/24 09:42 01/11/24 09:42 79 18 162/87 H 100 01/11/24 09:28 92 H 16 167/94 H 100 01/11/24 08:28 37.4 C 83 18 155/81 H 95 01/11/24 07:34 37.2 C 92 H 18 135/86 94 01/11/24 03:46 37.0 C 80 18 148/79 H 93 01/10/24 23:21 87 01/10/24 23:19 36.9 C 86 18 147/76 H 96 01/10/24 22:00 01/10/24 19:35 36.9 C 89 18 157/72 H 97 01/10/24 16:50 82 01/10/24 16:33 82 01/10/24 16:30 01/10/24 14:27 86 18 138/71 96 01/10/24 14:04 83 18 123/68 96 O2 Del Method 01/11/24 11:28 Room Air 01/11/24 10:00 Room Air 01/11/24 09:42 Room Air 01/11/24 09:42 Room Air 01/11/24 09:28 Room Air 01/11/24 08:28 Room Air 01/11/24 07:34 Room Air 01/11/24 03:46 Room Air 01/10/24 23:21 01/10/24 23:19 Room Air 01/10/24 22:00 Room Air 01/10/24 19:35 Room Air 01/10/24 16:50 01/10/24 16:33 01/10/24 16:30 Room Air 01/10/24 14:27 Room Air 01/10/24 14:04 Room Air Pain Intensity Abdomen: Pain Intensity: 7 Transfer of Care Handoff Completed per policy Notes Mental Status: alert / awake / arousable and participated in evaluation Patient Amnestic to Procedure: Yes Nausea / Vomiting: adequately controlled Pain: adequately controlled Airway Patency, RR, SpO2: stable & adequate BP & HR: stable & adequate Hydration State: stable & adequate Anesthetic Complications: no major complications apparent
--- NOTE | 2024-01-11 12:02 | Hospitalist Progress Note ---
Date of Service January 11, 2024 Assessment & Plan (1) Abdominal pain: Plan Esophageal Varices -Patient does not endorse recent vomiting. -Patient got EDG this morning. Findings included Grade 2 esophageal varies. -Appreciate GI recommendations -Clear liquid diet -Begin Octreotide with a bolus of 100 mcg followed by 50 mcg/hr x 5 days -Begin Nadolol 20 mg daily -Ceftriaxone x 5 days -Will need to continue Protonix 40 mg BID on discharge as well; Outpatient notes from PCP indicate plans for a slow taper, but I would not recommend decreasing this dosage at all due to the increased risk of bleeding. -Monitor CBC, monitor for s/s of GI bleeding - Repeat endoscopy in 2 weeks - Follow up outpatient for cirrhosis management Abdominal pain - acute on chronic, working dx of acute pancreatitis in origin -4 months of intermittent abd pain, worse within the last 1 week. Radiating to back bilaterally and "belt line." Patient states that his abdominal pain has not been well controlled since yesterday - last morphine dose was 8 am on 01/10/24 - ABD CT: Cirrhotic changes, portal venous hypertension (esophageal varices, ascites hemorrhoidal veins, and splenomegaly). Multiple gallstones demonstrated. ome pericholecystic fluid and some slight wall thickening and wall enhancement. No ductal dilation. Pancreas: Unremarkable. No mass. No ductal dilation. - ABD US: Heterogeneous echotexture of the liver with marginal nodularity. There is trace ascites noted throughout the abdomen and pelvis. IMPRESSION: Trace abdominal pelvic ascites. -Consulted GI: appreciate consult. -Continue to monitor LFTs -Continue Sucralfate (Carafate) 1 gm before meals and at bedtime -Continue Famotidine 20 m BID -Medication Orders: Protonix 40 mg IV BID, Famotidine 20 MG IV, Simethicone PO, morphine sulfate 4 mg IV Q3H PRN, Lactated ringers IV bolus, ceftrixone IV, Sucralfate 1 gm -Added Calcium Carbonate 500 mg PRN -Continue serial exams Alcohol Use Disorder - chronic Patient states that he is interested in cessation. He is high risk as he is a daily drinker, and binge drinks on Saturdays. - SHARMIN protocol. No evidence of tremors, diaphoresis, tachycardia. -Folate: 4.97. B12: >1500 - Received Thiamine 100 mg IV QAM and Folate 1 mg IV QAM on 01/11/24. Elevated Bilirubin- acute -12.6 mg/dl. Elevated from 9.2 mg/dl at discharge. -Direct bilirubin: 6.8 -Ordered liver panel to evaluate conjugated vs unconjugated levels. Prolonged PT/INR -PT: 14.5 (13.5 yesterday), INR: 1.4 (1.3 yesterday) -Continue to trend Hypomagnesemia, acute -1.6 mg/dl today, unchanged from yesterday. -Last infusion was 01/10/24, magnesium sulfate, 1 gm in 100 mg IV -Discontinue daily treads Hematuria, intermittent over 4 months (working dx of hematospermia) -Endorsing bleeding from penis and hematuria returned today. Following as outpatient and likely due to severe thrombocytopenia H&H trended, UA and urine microscopy ordered -Follows with urology outpatient Thrombocytopenia - chronic Suspected due to cirrhosis and alcoholic suppression Evaluated by hematology during last visit. Per their recommendations, patient should follow up outpatient. - Trending CBC - Will consider consulting hematology if thrombocytopenia worsens. Anemia - chronic - Hbg 9.1 g/dl (9.6 yesterday), likely secondary to esophageal varices -Type and cross in chart -Trend CBC daily (see esophageal varices) Porphyria cutanea tarda - chronic - Diffuse rash present across shoulders consistent with PCT. - Evaluated by hematology during last visit. Per their recommendations, patient should follow up outpatient. With history of phlebotomy and ferritin levels greater than 600 and 2019 Hepatitis C screening and HIV testing negative in both 2018 and 2023 Hypertension - chronic - Blood pressure today 176/96 Patient reports losartan did not work for him and he is not very interested in taking blood pressure medicine. Is agreeable to trying amlodipine as he does not think he had been on this before Has a history of lacunar infarct Lyme Disease -Discontinue home doxycycline. -Ceftriaxone for dual lyme and SBP coverage. History of CVA With history of left lacunar pontine infarct Aspirin held due to hematuria FEN: Clear liquid diet Code status: Full code DVT ppx: SCDs Consults: GI PT/OT: N/A Case management: Dispo: tele med Admission and Anticipated Discharge Date Admission Date: January 10, 2024 Supervising Physician Co-Signing Physician Notes I personally examined the patient and verified all hawthorne points of history and exam, discussed case, and agree with decision making with Justin Anderson'Poly MS4 Feels ongoing pain, although he had not had any pain medicines despite morphine 4 mg IV every 3 hours as needed being ordered yesterdayuntil this af ternoon. He notes that since he started asking for the morphine that the pain relief is actually fairly adequate and seems to last reasonably long. Otherwise he discusses leaving against advice, and we have a lengthy somewhat meandering discussion about his acute inpatient treatment, ongoing chronic management, alcohol cessation, suboptimal treatment leaving given that he would not be able to be on the octreotide drip after discharge, etc. It is a little bit hard to gather how much he truly glean this from our conversation versus how much he has foregone conclusions that he will abide by. At the same time, however, whenever we talk about alcohol abuse and his likely impending if he does not stop drinking (and the possibility that he could have an impending at this point even if he does stop but at least he would have a chance) he notes as though it was an open fact that he is decided he is quitting drinking. I do commended him on this. Hematuria recurred Vitals noted, in general he is awake and alert fatigued but does not appear to be in distress. Skin has multiple bleeding ulcerations. Breathing unlabored no accessory muscle use good effort. No focal neurodeficits. Abdominal pain likely multifactorialall alcohol relatedbetween upper GI mucosal illness, possibly a degree of liver related pain, although this seems less likely given that he does not really have an acute hepatitis picture), and acute on chronic pancreatitiscontinue supportive care, pain control, Acid suppression. Portal hypertension with variceal bleedingstatus post banding, continue ceftriaxone, continue octreotide. Extensive discussion with patient on the need to manage this appropriately given the risk of rebleeding even with appropriate management, let alone with leaving AMA and suboptimal management. Alcohol abusethiamine, folate, symptom triggered benzodiazepines for withdrawal. Patient had been adamant about not wanting to quit in the pastas recently as when I had him 2 weeks ago. Yesterday, we discussed whether or not he would have regrets if he is dying of end-stage liver disease by the end of this year and knows that he might have been able to thwart his demiseyesterday he was not sure he was really ready to quit drinking, but did note that he does not want to soon. Today he noted that he had decided to quit drinking. Applauded this decision. Discussed that it really is his only chance for survival. hematuria - ?porphyria related. bladder lesion? other. check UA/micro. will make sure he's set up with urology. otherwise as above Subjective Mr. Denis is a 58 year old male with a complex PMHx notable for of AUD, alcoholic liver cirrhosis, porphyria cutanea tarda, GI bleed, and stroke in 2017 who presented to the ED on 01/09/24 (1 day ago) for concerns of abdominal pain. He was recently d/c from the hospital on 12/30 for abdominal pain and non- bilious, non-bloody vomiting, with concern for PUD or gastritis. He was discharged on BID PPI, H2, and QID sucralfate. He states that he "takes his medications when he is able to." He reports that he was home for about 1/2 a day before his abdominal pain returned. Abdominal Pain Onset: 4 months ago, worsening over the last 1 week Location: Worst over the "belt line" Provocation/Palliation: drinking alcohol Associated: +nausea, -vomiting, - headache, -CP, -SOB, -dysuria, -urinary frequency, -melena/hematochezia, -hematuria, +chills. Last BM 2 days ago. Improved: "Drinking alcohol" Quality: Patient states his stomach is "as hard as a rock" Radiation: back bilaterally and down to the "belt line". -Last bowel movement was yesterday. -He states that the abd pain was better controlled after his second dose of morphine today Bleeding/Hematuria -Skin has been bleeding around his shoulders and scalp more frequently today -Patient endorses increased bleeding from his penis, hematuria -He has not experienced hematochezia or other rectal bleeding. Alcohol Use -Chronic alcohol use disorder: "I'm not gonna stop drinking" -Alcohol of choice: Rum, "vodka makes my stomach hurt" -Drinks 2 mixed drinks after worked, followed by 1-2 beers after shower. -This current amount is a decreased from 1/2 gal of rum a few months ago. -Last drink was Wednesday 7 PM -No history of withdrawal. Overnight events: None Pain control: Abdominal pain is not currently well controlled Bowel/bladder concerns: "blood coming from penis" Nutritional Status: NPO Mobility: No concerns Review of Systems Review of Systems: See HPI for pertinent positives & negatives. A total of 10 systems reviewed and were otherwise negative. Physical Exam Physical Exam: Constitutional: Comfortable-appearing, no acute distress. Blood stains present across sheets and gown. HEENT: NCAT, +scleral icterus. EMOI. PERRL. Dried blood present on top and bottom lips. CV: Regular rhythm, no murmur appreciated, extremities well-perfused, no LE edema. Resp: CTABL, no wheezes/rales/rhonchi appreciated,no increased work of breathing GI: Distended, diffusely tender to palpation in all four quadrants, BS normoactive. No evidence of JVD. MSK: No gross deformities appreciated. Skin: Warm, normal turgor. Mild jaundice of Multiple shallow, blistering lesions present across the upper back bilaterally. Small lesion on skull with slow active bleeding. Neuro: Alert, oriented, no focal neurologic deficit appreciate. Sensation intact in feet bilaterally. Results & Data Results & Data Vital Signs (Past 12 Hours) Vital Signs Temp Pulse Pulse Resp BP Pulse Ox O2 Del Method 01/11/24 07:34 99.0 F 92 H 18 135/86 94 Room Air 01/11/24 03:46 98.6 F 80 18 148/79 H 93 Room Air 01/10/24 23:21 87 01/10/24 23:19 98.4 F 86 18 147/76 H 96 Room Air 01/10/24 22:00 Room Air Laboratory Results Laboratory Results - last 24 hr 01/10/24 01/11/24 04:49 05:24 WBC 6.48 RBC 2.79 L Hgb 9.1 L Hct 24.3 L MCV 87.1 MCH 32.6 MCHC 37.4 H RDW Std Deviation 67.0 H RDW Coeff of Jason 20.9 H Plt Count 46 L Immature Gran % (Auto) 0.8 Neut % (Auto) 62.3 Lymph % (Auto) 22.1 Graham % (Auto) 12.7 Eos % (Auto) 1.2 Baso % (Auto) 0.9 Neut # (Auto) 4.04 Lymph # (Auto) 1.43 Graham # (Auto) 0.82 H Eos # (Auto) 0.08 Baso # (Auto) 0.06 Immature Gran # (Auto) 0.05 Anisocytosis Present Target Cells 2+ PT 14.5 H INR 1.4 H Sodium 135 L Potassium 3.9 Chloride 106 Carbon Dioxide 22 Anion Gap 7 BUN 13 Creatinine 0.95 Est Cr Clr Drug Dosing 100.9 Est GFR ( Amer) 103.3 Est GFR (Non-Af Amer) 89.1 BUN/Creatinine Ratio 13.7 Glucose 74 Calcium 8.2 L Magnesium 1.6 L Total Bilirubin 12.6 H Direct Bilirubin 6.8 H AST 96 H ALT 26 Alkaline Phosphatase 168 H Total Protein 7.0 Albumin 2.6 L Globulin 4.4 H Albumin/Globulin Ratio 0.6 L Vitamin B12 > 1500 H Folate 4.97 L Medications Administered Current Medications Pantoprazole Sodium 40 mg/ (Syringe) 10 mls @ 5 mls/min IV BID [facility] Stop: 02/09/24 08:59 Last Admin: 01/11/24 10:54 Dose: 5 mls/min Famotidine (Pepcid 20mg Iv Push) 20 mg in 5 mls @ 2.5 mls/min IV Q12H [facility] Stop: 02/09/24 08:29 Last Admin: 01/11/24 10:54 Dose: 2.5 mls/min Thiamine HCl 100 mg/ Syringe 10 mls @ 2 mls/min IV QAM [facility] Stop: 02/09/24 10:29 Last Admin: 01/11/24 10:53 Dose: 2 mls/min Folic Acid 1 mg/ Syringe 10 mls @ 5 mls/min IV QAM [facility] Stop: 02/09/24 10:29 Last Admin: 01/11/24 10:53 Dose: 5 mls/min Ceftriaxone Sodium (Rocephin) 2,000 mg in 50 mls @ 100 mls/hr IV Q24H [facility] Stop: 01/20/24 14:29 Last Infusion: 01/10/24 15:06 Dose: Infused Lactated Ringer's (Lr) 1,000 mls @ 125 mls/hr IV .Q8H [facility] Stop: 02/09/24 16:14 Last Admin: 01/11/24 11:23 Dose: 125 mls/hr Sodium Chloride (Nss) 500 mls @ 15 mls/hr IV .Q24H [facility] Stop: 01/12/24 07:29 Last Infusion: 01/11/24 08:27 Dose: Infused Octreotide Acetate 500 mcg/ (Sodium Chloride) 100.5 mls @ 10.05 mls/hr IV .Q10H [facility] Stop: 02/10/24 09:29 Last Admin: 01/11/24 10:55 Dose: 50 mcg/hr, 10.1 mls/hr Losartan Potassium (Losartan Potassium 50 Mg Tab) 50 mg PO DAILY [facility] Stop: 02/09/24 08:59 Last Admin: 01/10/24 11:22 Dose: 50 mg Morphine Sulfate (Morphine Sulfate 2 Mg/Ml Carp) 4 mg IV Q3H PRN PRN Reason: Pain Stop: 01/24/24 16:09 Last Admin: 01/11/24 11:23 Dose: 4 mg Nadolol (Nadolol 40 Mg Tab) 20 mg PO QAM [facility] Stop: 02/10/24 09:29 Polyethylene Glycol (Polyethylene (Miralax) 17 Gm Pack) 17 gm PO DAILY [facility] Stop: 02/10/24 08:59 Last Admin: 01/11/24 10:55 Dose: Not Given Simethicone (Simethicone 80 Mg Chew) 80 mg PO Q6H PRN PRN Reason: Flatulence Stop: 02/09/24 16:08 Sucralfate (Sucralfate 1 Gm Tab) 1 gm PO ACHS [facility] Stop: 02/09/24 11:29 Last Admin: 01/11/24 11:18 Dose: Not Given
[2024-01-11] MEDS: nadoloL 40 MG TAB PO SCH (13:02)
--- NOTE | 2024-01-11 16:06 | Billing Data ---
Date of Service January 11, 2024 Coding Level of Care Code 74874 SUB INP/OBS CARE
[2024-01-11] MEDS: CALCIUM CARBONATE 500 MG CHEWABLE TAB PO STA (16:16)
[2024-01-11 17:54] LABS: Bacteria Urine Automated None Seen (None Seen); Cast Urine Automated 0-2 /lpf (0-2); Epithelial Cell Urine Auto 0-2 /hpf (0-2); RBC Urine Automated 0-2 /hpf (0-2); WBC Urine Automated 0-5 /hpf (0-5)
[2024-01-11] MEDS: CALCIUM CARBONATE 500 MG CHEWABLE TAB PO PRN (21:58)
[2024-01-12] MEDS ORDERED: LORazepam 3 MG in SYRINGE 1.5 ML IV PRN (01:10)
[2024-01-12] MEDS ORDERED: LORazepam 2 MG in SYRINGE 1 ML IV PRN (01:10)
[2024-01-12] MEDS ORDERED: Ativan IV Alcohol Withdrawal--Active Protocol IV PRN (01:10)
[2024-01-12] MEDS: LORazepam 1 MG in SYRINGE 0.5 ML IV PRN (01:52)
--- NOTE | 2024-01-12 05:42 | Electrocardiogram Report ---
Test Reason : Blood Pressure : / mmHG Vent. Rate : 083 BPM Atrial Rate : 083 BPM P-R Int : 166 ms QRS Dur : 102 ms QT Int : 388 ms P-R-T Axes : 059 013 029 degrees QTc Int : 455 ms Normal sinus rhythm Possible Septal infarct When compared with ECG of 30-DEC-2023 13:52, Criteria for Septal infarct is now Present Confirmed by Chris Melgar ([id number]) on 01/12/2024 5:41:55 AM Referred By: Confirmed By:Chris Melgar
--- NOTE | 2024-01-12 09:11 | Discharge Summary ---
Date of Service January 12, 2024 Admission HPI Per Admitting Provider Mr. Denis is a 58 year old male with a complex PMHx notable for of AUD, alcoholic liver cirrhosis, porphyria cutanea tarda, GI bleed, and stroke in 2017 who presented to the ED on 01/09/24 (1 day ago) for concerns of abdominal pain. He was recently d/c from the hospital on 12/30 for abdominal pain and non- bilious, non-bloody vomiting, with concern for PUD or gastritis. He was discharged on BID PPI, H2, and QID sucralfate. He states that he "takes his medications when he is able to." He reports that he was home for about 1/2 a day before his abdominal pain returned. Abdominal Pain -4 months of intermittent abd pain, worse within the last 1 week. Radiating to back bilaterally and "belt line." - ABD CT: Cirrhotic changes, portal venous hypertension (esophageal varices, ascites hemorrhoidal veins, and splenomegaly). Multiple gallstones demonstrated. ome pericholecystic fluid and some slight wall thickening and wall enhancement. No ductal dilation. Pancreas: Unremarkable. No mass. No ductal dilation. - ABD US: Heterogeneous echotexture of the liver with marginal nodularity. There is trace ascites noted throughout the abdomen and pelvis. IMPRESSION: Trace abdominal pelvic ascites. -Consulted GI: appreciate consult. -Obtain US gallbladder given CT findings (completed) -Continue to monitor LFTs -Cannot have an EGD while intoxicated, but does have an outpatient referral ar ranged for this. Since he has been readmitted, he can have an EGD tomorrow if platelets are appropriate. -Continue Protonix 40 mg BID -Continue Carafate 1 gm before meals and at bedtime -Continue Famotidine 20 m BID -Placed ordered for: FOBT -Due to concern of SBP, will start ceftriaxone IV. -Medication Orders: Protonix 40 mg IV BID. Famotidine 20 MG IV, Simethicone PO, morphine sulfate 4 mg IV Q3H PRN, Lactated ringers IV bolus Alcohol Use -Chronic alcohol use disorder: "I'm not gonna stop drinking" -Alcohol of choice: Rum, "vodka makes my stomach hurt" -Drinks 2 mixed drinks after worked, followed by 1-2 beers after shower. -This current amount is a decreased from 1/2 gal of rum a few months ago. -Last drink was Wednesday 7 PM -No history of withdrawal. Vision -Vision has been getting worse over the last 4 months -Entire field of vision is "fuzzy." Still present when he puts on his glasses. -No eye pain. Skin bleeding -Skin has been bleeding around his shoulders Tick bite -Has been on doxycycline secondary to a tick bite. Had another tick bite recently, so PCP continued doxycycline dose. Tobacco Use -"I smoke like a chimney" -Was interested in a nicotine patch during last visit Admission Exam Per Admitting Provider Constitutional: Uncomfortable-appearing, no acute distress. HEENT: NCAT, +scleral icterus. EMOI. PERRL. Dried blood present on top and bottom lips. CV: Regular rhythm, no murmur appreciated, extremities well-perfused, no LE edema. Resp: CTABL, no wheezes/rales/rhonchi appreciated,no increased work of breathing GI: Distended, diffusely tender to palpation in all four quadrants, BS normoactive. MSK: No gross deformities appreciated. Skin: Warm. Multiple shallow, blistering lesions present across the upper back bilaterally. Neuro: Alert, oriented, no focal neurologic deficit appreciate. Sensation intact in feet bilaterally. Principal Diagnosis Bleeding esophageal varices Discharge Exam Unable to perform as patient left AMA before the start of a.m. shift. Discharge Data Allergies Allergy/AdvReac Type Severity Reaction Status Date / Time bee venom protein (honey bee) Allergy Severe Anaphylaxis Verified 01/06/24 13:41 Consultations 01/10/24 07:37 ED Decision to Admit Stat 01/10/24 08:58 Consult Gastroenterology Routine Procedures Performed Operation Date: 01/11/24 16:30 Actual Procedures p EGD Banding of Varices - Dawson Goodman Case, DO Ordered Studies 01/10/24 04:31 CT Abd and Pelvis [CT abd pelvis IV con only] Stat 01/10/24 09:31 US RUQ [US liver] Routine 01/10/24 10:07 US abdomen ltd ascites Routine Hospital Course (1) Bleeding esophageal varices due to alcoholic liver disease: Esophageal Varices -Patient does not endorse recent vomiting. -Patient got EDG this morning. Findings included Grade 2 esophageal varies. -Appreciate GI recommendations -Clear liquid diet -Begin Octreotide with a bolus of 100 mcg followed by 50 mcg/hr x 5 days -Begin Nadolol 20 mg daily -Ceftriaxone x 5 days -Will need to continue Protonix 40 mg BID on discharge as well; Outpatient notes from PCP indicate plans for a slow taper, but I would not recommend decreasing this dosage at all due to the increased risk of bleeding. -Monitor CBC, monitor for s/s of GI bleeding - Repeat endoscopy in 2 weeks - Follow up outpatient for cirrhosis management, tentatively scheduled for 01/26/2024 -Patient left AMA on the morning of 01/30, before completing treatment for active esophageal varices. Abdominal pain - acute on chronic, working dx of acute pancreatitis in origin -4 months of intermittent abd pain, worse within the last week. Radiating to back bilaterally and "belt line." -ABD CT: Cirrhotic changes, portal venous hypertension (esophageal varices, ascites hemorrhoidal veins, and splenomegaly). Multiple gallstones demonstrated. ome pericholecystic fluid and some slight wall thickening and wall enhancement. No ductal dilation. Pancreas: Unremarkable. No mass. No ductal dilation. -ABD US: Heterogeneous echotexture of the liver with marginal nodularity. There is trace ascites noted throughout the abdomen and pelvis. IMPRESSION: Trace abdominal pelvic ascites. -Consulted GI: Performed EGD bleeding esophageal varices -Continue to monitor LFTs -Continue Sucralfate (Carafate) 1 gm before meals and at bedtime -Continue Famotidine 20 m BID -Continue Protonix 40 mg twice daily Alcohol Use Disorder - chronic Patient states that he is interested in cessation. He is high risk as he is a daily drinker, and binge drinks on Saturdays. - SHARMIN protocol. No evidence of tremors, diaphoresis, tachycardia. Deferred initiation of AWSS protocol -Folate: 4.97. B12: >1500 -IV thiamine 100 mg every morning -IV folate 1 mg every morning Elevated (conjugated) bilirubin- acute -12.6 mg/dl. Elevated from 9.2 mg/dl at discharge. -Direct bilirubin: 6.8. Likely 2/2 reduced hepatic metabolic function, Integrilin 2/2 chronic cirrhosis. -Continue to monitor Prolonged PT/INR -PT: 14.5 (13.5 yesterday), INR: 1.4 (1.3 yesterday) -Continue to trend Hypomagnesemia, acute - Mg 1.2 on admission. S/p repletion IV Mg 2g. Likely due to malnutrition 2/2 AUD. -Replete as indicated Hematuria, intermittent over 4 months (working dx of hematospermia) -Endorsing bleeding from penis and hematuria returned today. Following as outpatient and likely due to severe thrombocytopenia -H&H trended, UA and urine microscopy ordered no WBC, RBC, epithelial cells, bacteria, or hyaline casts on microscopy -Follows with urology outpatient Thrombocytopenia - chronic Suspected due to cirrhosis and alcoholic suppression Evaluated by hematology during last visit. Per their recommendations, patient should follow up outpatient. - Trending CBC - Will consider consulting hematology if thrombocytopenia worsens. Anemia - chronic - Hbg 9.1 g/dl (9.6 yesterday), likely secondary to esophageal varices -Type and cross in chart -Trend CBC daily (see esophageal varices) Porphyria cutanea tarda - chronic - Diffuse rash present across shoulders consistent with PCT. - Evaluated by hematology during last visit. Per their recommendations, patient should follow up outpatient. With history of phlebotomy and ferritin levels greater than 600 and 2019 Hepatitis C screening and HIV testing negative in both 2018 and 2023 Hypertension - chronic - Blood pressure today 176/96 Patient reports losartan did not work for him and he is not very interested in taking blood pressure medicine. Is agreeable to trying amlodipine as he does not think he had been on this before Has a history of lacunar infarct Lyme Disease -Discontinue home doxycycline. -Ceftriaxone for dual lyme and SBP coverage. History of CVA With history of left lacunar pontine infarct Aspirin held due to hematuria GERD -Continue home famotidine, Protonix (2) Abdominal pain: (3) Elevated bilirubin: (4) Alcohol abuse: (5) Hematuria: (6) Hypertension: (7) Liver cirrhosis, alcoholic: (8) Hematospermia: (9) Porphyria cutanea tarda: (10) GERD (gastroesophageal reflux disease): Total Time Total Time Spent Total Time Spent (In Minutes): Please see attending attestation. Discharge Plan Discharge Items Patient Disposition: Against Medical Advice Reason For Visit: ABDOMINAL PAIN Activity: As commented below Non-emergency contact: Primary Care Provider Follow-up/Referrals: Giovanna Ramachandran CRNP [Primary Care Provider] - Pending Studies at Discharge: No Stand-Alone Forms: My [facility] [id number] Medications and DC Order Prescriptions: Continued doxycycline hyclate 100 mg capsule 100 mg PO BID 28 Days Qty: 56 0RF losartan 50 mg tablet 50 mg PO DAILY Qty: 90 2RF pantoprazole 40 mg tablet,delayed release (DR/EC) 40 mg PO BID Qty: 60 0RF famotidine 20 mg tablet 20 mg PO BID Qty: 60 0RF sucralfate 1 gram tablet 1 g PO ACHS Qty: 120 0RF Discharge Orders: Left Against Medical Advice (Routine); Ordered 01/12/24 Ordered By: Margarito Plasencia Admission Data Admit Date/Time: 01/10/24 08:12 Attending Provider: Wiliam Lebron Admit Provider: Meera Park Primary Care Provider: Giovanna Ramachandran Other Providers: Geovanna Emery; Dawson Montejo Resident Activity Tracking Resident Involvement: Resident Care Provided Care Provided: Adult Hospital Medicine
== END 2024-01-12 06:28 | disposition left against medical advice (07) | DRG 438 ==
LOC: ED 04:09 → EDINP 08:12 → 2N 14:38

== ENCOUNTER 2024-01-22 23:57 | Observation (INO) ==
[2024-01-23] MEDS ORDERED: PANTOPRAZOLE BOLUS/DRIP IV STA (00:04)
--- OUTSIDE RECORDS SUMMARY | 2024-01-23 00:04 | External Medical Summary | Summary of Care ---
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 Name Role Phone Unavailable Primary Care Provider Unavailabl e Reason for Visit * Auth/Cert Specialty Diagnoses / Procedures Referred By Jaenne tamayo Referred To Contact [facility] [address] [place] [address] Phone: [phone] Emergency Medicine [facility] [address] [place] [address] Referral ID Status Reason Start Date Expiration Date Visits Re quested Visits Authorized [id number] Encounter Details Date Type Department Care Team (Latest Contact Info) Description 01/18/2024 7:23 AM EDT - 01/18/2024 11:59 PM EDT Hospital Encounter Cardiac Studies [place] [id number] Discharge Disposition: Home - Self Care Allergies No known active allergiesdocumented as of this encounter (statuses as of 01/19/2024) Medications Medication Sig Dispensed Refills Start Date End Date Status Sucralfate 1 GM Oral Tablet (Carafate) Take 1 Tablet by mouth in the morning and 1 Tablet at noon and 1 Tablet in the evening and 1 Tablet before bedtime. Active Losartan Potassium 25 MG Oral Tablet (Cozaar) Take 1 Tablet by mouth in the morning. 01/18/2024 Discontinued Famotidine 20 MG Oral Tablet (Pepcid) Take 1 Tablet by mouth in the morning and 1 Tablet before bedtime. 01/18/2024 Discontinued Pantoprazole Sodium 40 MG Oral Tablet Delayed Release (Protonix) Take 1 Tablet by mouth in the morning. 01/18/2024 Discontinued documented as of this encounter (statuses as of 01/19/2024) Active Problems Problem Noted Date Diagnosed Date Decompensated hepatic cirrhosis 01/18/2024 Severe protein-energy malnutrition 01/17/2024 Alcoholic cirrhosis of liver without ascites 04/2024 Jaundice 01/16/2024 Abnormal LFTs 01/16/2024 Alcohol abuse 01/16/2024 Esophageal varices 01/16/2024 Chest pain 01/16/2024 Anemia 01/16/2024 documented as of this encounter (statuses as of 01/19/2024) Social History Tobacco Use Types Packs/Day Years Used Date Smoking Tobacco: Every Day Cigarettes Alcohol Use Standard Drinks/Week Comments Yes 14 (1 standard drink = 0.6 oz pu re alcohol) Sex and Gender Information Value Date Recorded Sex Assigned at Not on file Gender Identity Not on file Sexual Orientation Not on file Job Start Date Occupation Industry Not on file Not on file Not on file documented as of this encounter Plan of Treatment Upcoming Encounters Date Type Department Care Team (Latest Contact Info) Description 02/15/2024 12:30 PM EDT Hospital Encounter [facility], Endoscopy Suite, [facility], [address] [place] [address] Chapin Savage, DO [address] [place] [address] 02/15/2024 12:30 PM EDT - 02/15/2024 1:00 PM EDT Surgery [facility], Endoscopy Suite, [address], [address] [place] [address] Chapin Savage, DO [address] [place] [address] ESOPHAGOGASTRODUODENOSCOPY (EGD), FLEXIBLE, TRANSORAL, DIAGNOSTIC 06/02/2024 1:20 PM EDT Office Visit Hepatology, [facility] [address] [address] Wendy Denton, DO [address] [address] Scheduled Procedures Name Priority Associated Diagnoses Date/Ti me ESOPHAGOGASTRODUODENOSCOPY ( EGD), FLEXIBLE, TRANSORAL, DIAGNOSTIC Esophageal varices (HCC) 02/15/2024 12:30 PM EDT Health Maintenance Due Date Last Done Comments Lipid Panel 1967 Pneumococcal Vaccine: Pediat rics (0 to 5 Years) and At-Risk Patients (6 to 64 Years) (1 of 2 - PCV) 1973 Depression Screening 1979 DTaP,Tdap,and Td Vaccines (1 - Tdap) 1986 Hepatitis B (1 of 3 - 19+ 3- dose series) 1986 Cologuard 2012 Colonoscopy 2012 Colorectal Cancer Screening 2012 Fecal Occult Blood Test 2012 Sigmoidoscopy 2012 Zoster Vaccines (1 of 2) 2017 COVID-19 Vaccine (2 - 2022-2 4 season) 2023 01/14/2021 Influenza Vaccine (FLU shot) (Season Ended) 2024 HIV Screening Completed 01/16/2024 Hepatitis C Screening Completed 01/16/2024 GARDASIL-HPV IMMUNIZATION SERIES Aged Out No longer eligible based on patient's age to complete this topic MENINGOCOCCAL (MENACTRA/MENVEO) Aged Out No longer eligible based on patient's age to complete this topic documented as of this encounter Medical Devices Not on filedocumented as of this encounter Procedures Procedure Name Priority Date/Time Associated Diagnosis Comments ECHO, COMPLETE (2D), TRANS-THORACIC Routine 01/18/2024 9:24 AM EDT Chest pain, unspecified type documented in this encounter Visit Diagnoses Diagnosis Chest pain, unspecified type- Primary Esophageal varices (HCC) Esophageal varices without mention of bleeding documented in this encounter Administered Medications Inactive Administered Medications - up to 3 most recent administrations Medication Order MAR Action Action Date Dose Rate Site perflutren lipid microsphere inj SUSP 1.956 mg 1.956 mg, Intravenous, ONCE PRN Other, For Echo Only - Suboptimal Echo Images, Starting on 01/18/24 at 0824, Until 01/18/24 at 1023, For 2 hours, Administer IVP over 45 seconds, Cardiac Studies_HODHOV Given 01/18/2024 8:25 AM EDT 1.956 mg documented in this encounter Advance Directives * Full Code (Latest Code Status on File) Date Activated Date Inactivated Comments 01/16/2024 6:00 PM 01/18/2024 8:33 PM This order re flects the patients wishes and were consensually agreed upon. Question Answer Comments Discussion of Advance Directives occurred with: Patient
--- OUTSIDE RECORDS SUMMARY | 2024-01-23 00:05 | External Medical Summary ---
Author Name Unknown Address Unknown Organization K01:[facility] - [address] [place] [id number] Laboratory Report Ordering Provider Test Date Status RITAKAROL 01/17/2024 11:31:00 Final Observation Date Value Abnormality Reference (Units) Status Bacteria identified in Specimen by Culture 01/17/2024 11:31:00 No growth Final Gram Stain 01/17/2024 11:31:00 Occasional Polymorphonuclear leukocytes Final Gram Stain 01/17/2024 11:31:00 No organisms seen Final Test: Culture, Body Fluid, Aerobic
Specimen Source: Peritoneal Fluid
Specimen Type: Body Fluid
Specimen Date: 01/17/2024 113
Result Date: 01/20/2024 1425
Result Status: Final result
Resulting Lab: [facility]
[address]
[place] [id number]

CULTURE

No growth

STAIN

Occasional Polymorphonuclear leukocytes

No organisms seen

null Performing Location [facility] - [address] [place] [id number]
--- OUTSIDE RECORDS SUMMARY | 2024-01-23 00:05 | External Medical Summary ---
Author Name Unknown Address Unknown Organization : Laboratory Report Ordering Provider Test Date Status KAROL SALINAS 01/16/2024 20:14:00 Final Observation Date Value Abnormality Reference (Units ) Status Thiamine [Moles/volume] in Blood 01/16/2024 20:14:00 93 78-185 (nmol/L) Final Vitamin supplementation with in 24 hours prior to
blood draw may affect the accuracy of the results.
This test was developed and its analytical performance
characteristics have been determined by [employer] [place], [place]. It has
not been cleared or approved by the U.S. Food and Drug
Administration. This assay has been validated pursuant
to the CLIA regulations and is used for clinical
purposes.

Test Performed at:
[facility]
[address] [facility]
[place] [address]
Deshawn Melendez M.D., Ph.D.,Director of Laboratories Performing Location
[2024-01-23] MEDS ORDERED: STAT IV/IM STA (00:06)
[2024-01-23] MEDS ORDERED: ONDANSETRON INJ 2 MG/ML 2 ML VIAL ONE ×2 (00:09→01:35)
[2024-01-23] MEDS ORDERED: SODIUM CHLORIDE 0.9% 250 ML IV PRN (00:12)
[2024-01-23] MEDS ORDERED: STAT IV Infusion **Titration per Protocol STA ×2 (00:13→05:34)
[2024-01-23] MEDS: NOREPINEPHRINE/D5W 4 MG/250 ML PLCT IV SCH (00:18)
[2024-01-23] MEDS: cefTRIAXone SODIUM 2,000 MG/50 ML BAG IV STA (00:19)
[2024-01-23] MEDS: NOREPINEPHRINE/D5W 4 MG/250 ML IV ONE (00:28)
[2024-01-23] MEDS: PANTOprazole 80 MG in DEXTROSE 5% 100 ML IV ONE (00:34)
[2024-01-23] MEDS: SODIUM CHLORIDE 0.9% 500 ML IV STA (00:35)
[2024-01-23] MEDS: OCTREOTIDE ACETATE 500 MCG in 0.9 % SODIUM CHLORIDE 100 ML IV SCH (00:36)
[2024-01-23 00:47] LABS: Alanine Aminotransferase 40 U/L (7-52); Albumin Globulin Ratio 0.5 (0.9-2); Albumin Level 2.1 gm/dl (3.4-5.0); Alkaline Phosphatase 106 U/L (34-104); Anion Gap 11 (3-11); Aspartate Aminotransferase 119 U/L (13-39); BUN Creatinine Ratio 10.3 (10-20); Bilirubin,Total 20.2 mg/dl (0.2-1.0); Blood Urea Nitrogen 16 mg/dl (6-23); Calcium 7.9 mg/dl (8.6-10.3); Carbon Dioxide 18 mmol/L (21-32); Chloride 105 mmol/L (98-107); Creatinine Clr Calc Pharmacy 61.5 ml/min; Est GFR (African American) 56.7 ml/min; Est GFR (Non-African American) 48.9 ml/min; Globulin 3.9 gm/dl (2.5-4.0); Glucose 106 mg/dl (70-99(Fasting)); Potassium 3.6 mmol/L (3.5-5.1); Sodium 134 mmol/L (136-145); Troponin I High Sensitivity 8.7 pg/ml (0-20)
[2024-01-23] MEDS: PANTOprazole 40 MG in DEXTROSE 5% MINI-B 100 ML IV SCH (00:50)
[2024-01-23 01:15] LABS: Hemoglobin 6.6 g/dl (14.0-18.0); Mean Corpuscular Hemoglobin 34.6 pg (25.0-34.0); Mean Corpuscular Hgb Conc 36.7 g/dL (32.0-36.0); Mean Corpuscular Volume 94.2 fL (80.0-100.0); Mean Platelet Volume 11.8 fL (9.4-12.4); Platelet Count 98 K/uL (130-400); RDW Coefficient of Variation 23.7 % (11.5-14.5); RDW Standard Deviation 81.6 fL (36.4-46.3); Red Blood Count 1.91 M/uL (4.70-6.10); White Blood Count 11.76 K/ul (4.8-10.8)
[2024-01-23 01:20] LABS: INR 1.9 (0.9-1.1); Partial Thromboplastin Ratio 1.5; Partial Thromboplastin Time 40 Seconds (21-31); Prothrombin Time 19.3 Seconds (9.0-12.0)
[2024-01-23 01:34] LABS: BUN Creatinine Ratio 11.2 (10-20); Calcium 6.5 mg/dl (8.6-10.3); Creatinine Clr Calc Pharmacy 67.1 ml/min; Est GFR (Non-African American) 54.4 ml/min; Potassium 3.8 mmol/L (3.5-5.1)
[2024-01-23] MEDS ORDERED: LIDOCAINE 2% 2 ML VIAL/AMP(20MG/ML) INFIL ONE (01:35)
[2024-01-23] MEDS ORDERED: ROCURONIUM BROMIDE 10 MG/ML 5 ML VIAL IV ONE (01:35)
[2024-01-23] MEDS ORDERED: SUCCINYLCHOLINE CHLORIDE 20 MG/ML 10 ML VIAL IV ONE (01:35)
[2024-01-23] MEDS ORDERED: PROPOFOL IV EMULSION 10 MG/ML 20 ML VIAL IV ONE (01:35)
[2024-01-23] MEDS ORDERED: fentaNYL citrate PF 100 MCG/2 ML VIAL ONE (01:36)
[2024-01-23] MEDS: CALCIUM GLUCONATE 1000 MG/60 ML NSS IV ONE (01:45)
[2024-01-23] MEDS: CALCIUM GLUCONATE 1,000 MG/60 ML BAG IV SCH ×2 (01:45→04:30)
--- NOTE | 2024-01-23 01:45 | Anesthesiology Consultation ---
Date of Service January 23, 2024 History Height/Weight Height: 6 ft 2 in Weight: 86 kg Allergies Allergy/AdvReac Type Severity Reaction Status Date / Time bee venom protein (honey bee) Allergy Severe Anaphylaxis Verified 01/19/24 09:57 Medications Home Medications Medication Instructions Recorded Confirmed Last Taken pantoprazole 40 mg tablet,delayed 40 mg PO BID #60 tabs 12/31/23 01/23/24 01/09/24 release sucralfate 1 gram tablet 1 g PO ACHS #120 tabs 12/31/23 01/23/24 01/09/24 doxycycline hyclate 100 mg capsule 100 mg PO BID 28 days #56 caps 01/06/24 01/23/24 01/09/24 baclofen 10 mg tablet 10 mg PO TID #90 tabs 01/19/24 01/23/24 Unknown folic acid 1 mg tablet 1 mg PO DAILY #30 tabs 01/19/24 01/23/24 Unknown furosemide 40 mg tablet 40 mg PO DAILY #30 tabs 01/19/24 01/23/24 Unknown multivitamin with folic acid 400 1 tab PO DAILY #30 tabs 01/19/24 01/23/24 Unknown mcg tablet (Tab-A-Piter) omeprazole 20 mg capsule,delayed 20 mg PO BID #60 caps 01/19/24 01/23/24 Unknown release spironolactone 100 mg tablet 100 mg PO DAILY #30 tabs 01/19/24 01/23/24 Unknown carvedilol 6.25 mg tablet 6.25 mg PO DAILY 01/23/24 01/23/24 Unknown Active Medications Generic Name Dose Route Start Last Admin Trade Name Petros PRN Reason Stop Dose Admin Pantoprazole Sodium 40 mg/ 100 mls @ 20 mls/hr 01/23/24 00:30 01/23/24 00:50 Dextrose IV 02/22/24 00:29 8 mg/hr Q5H SHAWN 20 mls/hr Administration 8 MG/HR Octreotide Acetate 500 mcg/ 100.5 mls @ 10.05 mls/hr 01/23/24 00:15 01/23/24 00:36 Sodium Chloride IV 02/22/24 00:14 50 mcg/hr .Q10H SHAWN 10.1 mls/hr Administration 50 MCG/HR Norepinephrine Bitartrate 4 mg in 250 mls @ 22.575 mls/hr 01/23/24 00:15 01/23/24 00:18 Levophed/D5w IV 02/22/24 00:14 0.07 mcg/kg/min .Q11H5M SHAWN 22.6 mls/hr Administration Protocol 0.07 MCG/KG/MIN Calcium Gluconate 1,000 mg in 60 mls @ 240 mls/hr 01/23/24 01:45 01/23/24 01:46 IV 01/23/24 02:14 240 mls/hr Q15M SHAWN Administration Past Medical History Medical History GERD (gastroesophageal reflux disease) controlled, stable per pt Exercise / Class Metabolic Activity II 4-5 Yardwork/Stairs/Walk up hill Past Family History Family History Grandmother (Maternal) Diabetes Other No significant family history Denies family history of Ovarian cancer Prostate cancer Depression Heart disease Myocardial infarction Breast cancer Lung cancer Colorectal cancer Stroke Past Surgical History Surgical History H/O endoscopic sinus surgery H/O nasal septoplasty History of open reduction and internal fixation (ORIF) procedure right foot - 07/2022 [facility] Past Anesthesia History No Hx of Anesthesia Complications and No Family Hx of Anesthesia Complications History of PONV No Hx of PONV and No Hx of Motion Sickness Social History Smoking Status: Current every day smoker tobacco type: cigarettes and cigars Smoking cigarettes per day: smokes cigarettes 20 per day- if smokes cigars 1/2 pack- advised Do You Dip or Chew Tobacco: No Hx Alcohol Use: Yes Alcohol type: beer alcohol intake frequency: 0-2 drinks per day Hx Substance Use: No substance use type: does not use Review of Systems ROS Unobtainable: All systems reviewed & are unremarkable except as noted in HPI & below Physical Exam Vital Signs Last Vital Signs Temp 37 C 01/23/24 01:10 Pulse 104 H 01/23/24 01:40 Resp 17 01/23/24 01:40 BP 110/47 L 01/23/24 01:40 Pulse Ox 99 01/23/24 01:40 O2 Del Method Room Air 06/15/24 23:39 O2 Flow Rate 4 01/23/24 01:10 ENMT Mouth: no TMJ abnormality Thyromental Distance: > or= 3.5 Finger Breadths Mallampati Class: II Neck normal visual inspection and trachea midline; neck extension not limited Respiratory normal respiratory effort Auscultation: lungs clear to auscultation bilaterally Cardiovascular Rate/Rhythm: regular rate and regular rhythm Heart Sounds: no murmur Musculoskeletal Spine: normal cervical ROM Extremities: full ROM of extremities Neurologic moves all extremities Psychiatric Orientation: alert and oriented x 3 Testing Laboratory Results 01/23/24 00:07 01/23/24 00:55 PT 19.3 Seconds (9.0-12.0) H 01/23/24 00:07 INR 1.9 (0.9-1.1) H 01/23/24 00:07 APTT 40 Seconds (21-31) H 01/23/24 00:07 Blood Type O Positive 01/23/24 00:07 Antibody Screen NEGATIVE 01/23/24 00:07 Electrocardiogram Date: 01/10/24 Normal sinus rhythm Possible Septal infarct When compared with ECG of 30-DEC-2023 13:52, Criteria for Septal infarct is now Present Confirmed by Chris Melgar ([id number]) on 01/12/2024 5:41:55 AM Echocardiogram Date: 01/18/24 EF: 60-64 LV Function: normal
--- NOTE | 2024-01-23 01:47 | Critical Care Consultation ---
Date of Consultation January 23, 2024 Assessment & Plan (1) Hemorrhagic shock: Reason Critically Ill: 58-year-old male with past medical history significant for alcoholic cirrhosis, esophageal variceal bleed, and previous banding now presents to the ICU with acute GI bleed, s/p EGD with clips x 2 placed for distal esophageal ulcer with this arterial bleed. Now awaiting transfer to [facility] Neuro - Sedation: Fentanyl and Versed drips Cardiac - Hemorrhagic shockSecondary to acute GI bleed. currently on vasopressor support with Levophed drip. A-line inserted for continuous hemodynamic monitoring. Undergoing rapid transfusion. Cardiac arrestpatient Went into PEA arrest and received CPR, with bicarb and epinephrine pushes to achieve ROSC. He was intubated during that time and undergoing massive transfusion, with vasopressors/levo. Currently sinus tachycardia on monitor. Respiratory - Mechanical ventilationpatient intubating during cardiac arrest. No history of pulmonary disease. No significant hypoxia, and acidosis primarily Metabolic on ABG. Patient to remain intubated until stable. Continuous monitoring on pulse ox. Wean vent as tolerated. GI - Acute GI bleedpatient with recent admission for bleeding esophageal varices and underwent esophageal Banding, And underwent transfer to [facility] and was being followed by hepatology. Now presents with upper and lower GI bleeding, emergent EGD with distal esophageal ulcer with arterial bleed and received clips x 2 per gastroenterology. Now transferring to [facility] for IR capability and further management. RENAL/LYTES - AKIlikely prerenal in the setting of GI bleed/hypotensive. Monitor routine BMPs and replete electrolytes as indicated. Maintain MAP greater than 65. Avoid nephrotoxins and renally adjust medications. Continue with aggressive fluid resuscitation. Metabolic acidosis Secondary to lactic acidosis with lactate 11.9, also with liver dysfunction/cirrhosis and acute GI bleed with hemorrhagic shock. Continue with aggressive fluid resuscitation and massive transfusion protocol. Continue with bicarb infusions. Repeat ABG pending. - Foleystrict I's and O's ENDO - No history of diabetes or thyroid disease. ICU hyperglycemic protocol HEME - Acute blood loss anemia Patient undergoing massive transfusion with Amador and protocol due to underlying GI bleed. Patient received multiple units RBCs, FFP, and 2 units platelets along with 2 units cryo and vitamin K. Repeat CBC and INR currently pending and will transfuse as indicated per protocol. ID - Empiric ceftriaxone LINES/IV ACCESS - Large-bore peripheral IVs, A-line DVT PROPHYLAXIS - SCDs I have personally spent 165 minutes of critical care time in the direct management of this patient. This is a life/limb threatening event. This includes time spent evaluating patient, direct bedside care, chart review, placing orders, interpretation of diagnostic studies, discussion with consultants, patient, and family members, as well as other required patient management activities. This time is exclusive of all separately billable procedures, and teaching time and separate from and in addition to any other critical care service time. Thank you for allowing us to participate in the care of this patient. Please r efer to my attending physician's documentation for any further recommendations. (2) GIB (gastrointestinal bleeding): (3) Liver cirrhosis, alcoholic: History of Present Illness History of Present Illness Patient is a 58-year-old male with past medical history of Alcoholic cirrhosis, ascites, recent esophageal variceal bleed with banding, and admission to [facility]. Patient presented to the emergency department Earlier this evening with gross hematemesis, and melena. He became hypotensive and required mass transfusion protocol. Prior to undergoing emergent EGD, patient went into PEA cardiac arrest and required CPR, and epinephrine before achieving ROSC. During that time he was emergently intubated and transferred to the ICU. He will underwent emergent EGD where he was found to have a distal esophageal ulcer with arterial bleed. 2 clips were inserted and bleeding was stopped per GI. Patient high risk for rebleed and is currently in the process of transferring to [facility] for potential IR capability. Allergies Allergy/AdvReac Type Severity Reaction Status Date / Time bee venom protein (honey bee) Allergy Severe Anaphylaxis Verified 01/19/24 09:57 Home Medications Medication Instructions Recorded Confirmed Type pantoprazole 40 mg tablet,delayed 40 mg PO BID #60 tabs 12/31/23 01/23/24 Rx release sucralfate 1 gram tablet 1 g PO ACHS #120 tabs 12/31/23 01/23/24 Rx doxycycline hyclate 100 mg capsule 100 mg PO BID 28 days #56 caps 01/06/24 01/23/24 Rx baclofen 10 mg tablet 10 mg PO TID #90 tabs 01/19/24 01/23/24 Rx folic acid 1 mg tablet 1 mg PO DAILY #30 tabs 01/19/24 01/23/24 Rx furosemide 40 mg tablet 40 mg PO DAILY #30 tabs 01/19/24 01/23/24 Rx multivitamin with folic acid 400 1 tab PO DAILY #30 tabs 01/19/24 01/23/24 Rx mcg tablet (Tab-A-Piter) omeprazole 20 mg capsule,delayed 20 mg PO BID #60 caps 01/19/24 01/23/24 Rx release spironolactone 100 mg tablet 100 mg PO DAILY #30 tabs 01/19/24 01/23/24 Rx carvedilol 6.25 mg tablet 6.25 mg PO DAILY 01/23/24 01/23/24 History Patient History Medical History GERD (gastroesophageal reflux disease) controlled, stable per pt Surgical History H/O endoscopic sinus surgery H/O nasal septoplasty History of open reduction and internal fixation (ORIF) [facility] Family History Grandmother (Maternal) Diabetes Other No significant family history Denies family history of Ovarian cancer Prostate cancer Depression Heart disease Myocardial infarction Breast cancer Lung cancer Colorectal cancer Stroke Social History (Updated 01/19/24 @ 10:04 by Georgette Latif LPN) Smoking Status: Current every day smoker Tobacco Type: Cigarettes packs per day: 1; Cigarettes Per Day: smokes cigarettes 20 per day- if smokes cigars 1/2 pack- advised; Second Hand Exposure: No; Do You Dip or Chew Tobacco: No; Hx Alcohol Use: Yes Alcohol type: beer Alcohol Intake Frequency: 4 or More x per/Week Hx Substance Use: No Preferred Language: Emirati Communication Ability: Effective Visual Impairment: Limited 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: Normal Rn Clinical Required: No Beliefs That Will Affect Care: None marital status: single Current Living Situation: Alone current occupational status: employed How many Children do You have: 0 Feels Safe at Home: Yes Childhood Exposure to Second-Hand Smoke: Yes Diet: regular caffeine: No during the past year weight has: remained stable Dental Care, Regularly: No Physical Activity Frequency: Daily Seatbelt Use: never Sunscreen Use: No Assistive Devices: None Review of Systems Review of Systems: Unobtainable due to endotracheal tube Physical Exam Constitutional: + mechanically ventilated Jaundice Eyes: Jaundiced sclera, PERRLA ENMT: external ear and nose normal, oropharynx normal Neck: trachea midline, no thyromegaly Respiratory: normal respiratory effort, lungs clear to auscultation Cardiovascular: RRR, no murmur, no edema Heart Sounds: normal S1 and normal S2 Gastrointestinal (Abdomen): Abdomen distended, semifirm. Bowel sounds hyperactive Skin: Skin dry, no rashes. Jaundice Neurologic: Unable to assess due to sedation Psychiatric: Unable to assess due to sedation Results & Data Results & Data Vital Signs (Past 12 Hours) Vital Signs Temp Pulse Resp BP Pulse Ox O2 Del Method O2 Flow Rate 01/23/24 01:40 104 H 17 110/47 L 99 01/23/24 01:36 96 H 34 H 98/61 L 100 01/23/24 01:10 37 C 101 H 28 H 86/65 L 100 4 01/23/24 00:53 100 H 30 H 84/60 L 100 01/23/24 00:39 37.7 C H 103 H 20 69/49 L 99 4 01/23/24 00:19 37.6 C H 97 H 20 106/24 L 99 4 01/23/24 00:04 98 H 01/22/24 23:39 98 H 30 H 72/40 L 88 L Room Air Coding Level of Care Code 67913 CRITICAL CARE EA ADD 30M Diagnoses Hemorrhagic shock R57.8 GIB (gastrointestinal bleeding) K29.01 GI bleed type/associated pathology: gastritis Gastritis type: acute gastritis Liver cirrhosis, alcoholic K70.30 (2) GIB (gastrointestinal bleeding) GI bleed type/associated pathology: gastritis Gastritis type: acute gastritis Qualified Code(s): K29.01 - Acute gastritis with bleeding
--- NOTE | 2024-01-23 01:50 | Procedure Note ---
Procedure Note Date of Service January 23, 2024 Note ARTERIAL LINE PROCEDURE NOTE: Procedure: Arterial Line Placement Attending: Dr. Perze Provider: MADELIN Miles Indication: Monitoring on Pressors Anesthesia: Lidocaine 1% Line placed emergently due to hemorrhagic shock in the setting of acute GI bleed, with need for continuous hemodynamic monitoring and vasopressor support. A time-out was completed verifying correct patient, procedure, site, positioning, and implant(s) or special equipment if applicable. Allens test was performed to ensure adequate perfusion. Patients Right wrist was prepped and draped in the usual sterile fashion. Ultrasound guidance was used to aid needle placement. A 20g Arrow arterial line was introduced into the Right radial artery. Catheter was threaded, and the needle was removed with appropriate blood return. Good waveform was observed. The patient tolerated the procedure well. Confirmation of placement with ultrasound. Blood Loss: Minimal Complications: None Procedural Ultrasound Guidance: Procedure Date: 01/23/2024 Indication: Arterial line insertion Attending: Dr. Perez Provider: MADELIN Miles Artery Identified: YES Line confirmed in Artery with ultrasound: yes Complications: NONE Patient tolerated procedure: WELL Coding CPT Codes Tubes, Drains, and Vasc Access - Tubes, Drains, and Vasc Access: [id number] Arterial Cath/Cannulation Sampling/Monitoring/Transfusion ([id number]) Tubes, Drains, and Vasc Access - Tubes, Drains, and Vasc Access: [id number] Ultrasound Guidance For Vascular ([id number]) [facility] [place] Codes (Charges) Tubes, Drains, and Vasc Access Procedure 1: Tubes, Drains, and Vasc Access: [id number] Arterial Cath/Cannulation Sampling/Monitoring/Transfusion Procedure 2: Tubes, Drains, and Vasc Access: [id number] Ultrasound Guidance For Vascular
[2024-01-23] MEDS: PHYTONADIONE 5 MG in DEXTROSE 5% 50 ML IV ONE (01:52)
[2024-01-23 02:00] LABS: D Dimer 11430 ug/L FEU (0-500); Fibrinogen 111 mg/dl (184-400)
--- NOTE | 2024-01-23 02:22 | History & Physical Report ---
Date of Service January 23, 2024 Assessment & Plan (1) Hemorrhagic shock: (2) Bleeding esophageal varices due to alcoholic liver disease: (3) Hematemesis: (4) Elevated bilirubin: (5) Alcohol abuse: (6) Liver cirrhosis, alcoholic: (7) Atrial fibrillation: (8) Stroke: Plan Hemorrhagic shock/hematemesis/bleeding esophageal varices due to alcoholic liver disease/previous banding of varices/acute variceal banding in the ICU- Admitted to the intensive care unit NPO Continue pantoprazole drip, octreotide drip, Levophed infusion, ceftriaxone, IV fluids until transport available to take to [facility] in [place] Vital signs before transfer, blood pressure 87/46 pulse 112, respirations 24, temperature 37 C O2 saturation 99% on 4 L nasal cannula History of Present Illness Chief Complaint: The patient was brought to the emergency department unresponsive, hypotensive, with active rectal bleeding. Primary Care Provider: MADELIN Hilario The patient is a 58-year-old male with a past medical history including alcohol abuse, pancreatitis, history of CVA, alcoholic liver cirrhosis, GI bleeding status post recent variceal banding at [facility], atrial fibrillation, tobacco dependence and hypertension. Upon presentation to the emergency department he was placed in mass transfusion protocol, Protonix drip, octreotide drip, Levophed per protocol, aggressive fluid rehydration, vitamin K, ceftriaxone, and calcium gluconate. Gastroenterology was called, who came to the emergency department and planned to take the patient to endoscopy suite for emergent EGD and banding. While in the endoscopy suite, before EGD could be performed, the patient underwent a CODE BLUE, was resuscitated, and then de leon sferred to the ICU where EGD with banding was performed. Patient was then emergently transferred to [facility] in [place] for ongoing care Allergies Allergy/AdvReac Type Severity Reaction Status Date / Time bee venom protein (honey bee) Allergy Severe Anaphylaxis Verified 01/19/24 09:57 Home Medications Medication Instructions Recorded Confirmed Type pantoprazole 40 mg tablet,delayed 40 mg PO BID #60 tabs 12/31/23 01/23/24 Rx release sucralfate 1 gram tablet 1 g PO ACHS #120 tabs 12/31/23 01/23/24 Rx doxycycline hyclate 100 mg capsule 100 mg PO BID 28 days #56 caps 01/06/24 01/23/24 Rx baclofen 10 mg tablet 10 mg PO TID #90 tabs 01/19/24 01/23/24 Rx folic acid 1 mg tablet 1 mg PO DAILY #30 tabs 01/19/24 01/23/24 Rx furosemide 40 mg tablet 40 mg PO DAILY #30 tabs 01/19/24 01/23/24 Rx multivitamin with folic acid 400 1 tab PO DAILY #30 tabs 01/19/24 01/23/24 Rx mcg tablet (Tab-A-Piter) omeprazole 20 mg capsule,delayed 20 mg PO BID #60 caps 01/19/24 01/23/24 Rx release spironolactone 100 mg tablet 100 mg PO DAILY #30 tabs 01/19/24 01/23/24 Rx carvedilol 6.25 mg tablet 6.25 mg PO DAILY 01/23/24 01/23/24 History Past Med/Surg History Problem List Thrombocytopenia (Acute) Coagulopathy (Acute) Hyperbilirubinemia (Acute) Hemorrhagic shock (Acute) Anemia (Acute) Acute GI bleeding (Acute) Hemorrhagic shock Bleeding esophageal varices due to alcoholic liver disease Abdominal pain (Acute) Elevated bilirubin (Acute) Alcohol abuse (Acute) Alcohol intoxication (Acute) Anemia (Acute) Acute pancreatitis (Acute) History of stroke Hematuria (Acute) Abdominal pain (Acute) Cholelithiasis Liver cirrhosis, alcoholic (Acute) GIB (gastrointestinal bleeding) (Acute) Alcohol use (Acute) daily drinker Atrial fibrillation (Acute) Hematemesis Anxiety Tear of medial meniscus of left knee Encounter for pre-operative examination Headache Cervical pain (neck) Tobacco dependence Stroke 2016-right sided weakness-no current deficits Hypertension (Chronic) pt reports home readings range 180s/110-120s Medical History GERD (gastroesophageal reflux disease) controlled, stable per pt Surgical History H/O endoscopic sinus surgery H/O nasal septoplasty History of open reduction and internal fixation (ORIF) procedure right foot - 07/2022 [facility] Family History Grandmother (Maternal) Diabetes Other No significant family history Denies family history of Ovarian cancer Prostate cancer Depression Heart disease Myocardial infarction Breast cancer Lung cancer Colorectal cancer Stroke Social History Smoking Status: Current every day smoker Tobacco Type: Cigarettes packs per day: 1; Cigarettes Per Day: smokes cigarettes 20 per day- if smokes cigars 1/2 pack- advised; Second Hand Exposure: No; Do You Dip or Chew Tobacco: No; Hx Alcohol Use: Yes Alcohol type: beer Alcohol Intake Frequency: 4 or More x per/Week Hx Substance Use: No Preferred Language: Irish Communication Ability: Effective Visual Impairment: Limited 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: Normal [employer] Required: No Beliefs That Will Affect Care: None marital status: single Current Living Situation: Alone current occupational status: employed How many Children do You have: 0 Feels Safe at Home: Yes Childhood Exposure to Second-Hand Smoke: Yes Diet: regular caffeine: No during the past year weight has: remained stable Dental Care, Regularly: No Physical Activity Frequency: Daily Seatbelt Use: never Sunscreen Use: No Assistive Devices: None Review of Systems Review of Systems: HPI and ROS are limited to chart review and information from EMS due to patient's critical state Physical Exam Physical Exam: The patient is unresponsive, appears jaundiced, having multiple episodes of vomiting and hematemesis HEENT--PERRL, EOMI, mucous membranes and oropharynx dry, scleral icterus. Neck--supple. No JVD. No bruits. Thyroid normal, trachea midline, no adenopathy. Heart--tachycardic. No murmurs, rubs or gallops. Lungs- coarse breath sounds bilaterally Abdomen--normal bowel sounds and soft. Nontender. Mildly distended Extremities--No edema. Dermatologic--jaundice Neurologic--cranial nerves II through XII grossly intact. Rheumatologic--limited exam Psychiatric--unresponsive. Results & Data Results & Data Vital Signs (Past 12 Hours) Vital Signs Temp Pulse Resp BP Pulse Ox O2 Del Method O2 Flow Rate 01/23/24 02:15 Nasal Cannula 4 01/23/24 02:01 112 H 37 H 87/46 L 99 4 01/23/24 01:40 104 H 17 110/47 L 99 01/23/24 01:36 96 H 34 H 98/61 L 100 01/23/24 01:10 37 C 101 H 28 H 86/65 L 100 4 01/23/24 00:53 100 H 30 H 84/60 L 100 01/23/24 00:39 37.7 C H 103 H 20 69/49 L 99 4 01/23/24 00:19 37.6 C H 97 H 20 106/24 L 99 4 01/23/24 00:04 98 H 01/22/24 23:39 98 H 30 H 72/40 L 88 L Room Air Laboratory Results Laboratory Results WBC 10.37 K/ul (4.8-10.8) 01/23/24 04:11 RBC 3.25 M/uL (4.70-6.10) L 01/23/24 04:11 Hgb 9.9 g/dl (14.0-18.0) L D 01/23/24 04:11 POC Hgb 8.8 g/dl (14.0-18.0) L 01/23/24 04:09 Hct 30.6 % (42.0-52.0) L 01/23/24 04:11 POC Hct 26 % (42-52) L 01/23/24 04:09 MCV 94.2 fL (80.0-100.0) 01/23/24 04:11 MCH 30.5 pg (25.0-34.0) 01/23/24 04:11 MCHC 32.4 g/dL (32.0-36.0) D 01/23/24 04:11 RDW Std Deviation 51.4 fL (36.4-46.3) H 01/23/24 04:11 RDW Coeff of Jason 15.0 % (11.5-14.5) H 01/23/24 04:11 Plt Count 44 K/uL (130-400) L D 01/23/24 04:11 MPV 11.1 fL (9.4-12.4) 01/23/24 04:11 Immature Gran % (Auto) 7.3 % 01/23/24 04:11 Neut % (Auto) 64.9 % 01/23/24 04:11 Lymph % (Auto) 20.8 % 01/23/24 04:11 [facility] % (Auto) 5.6 % 01/23/24 04:11 Eos % (Auto) 0.5 % 01/23/24 04:11 Baso % (Auto) 0.9 % 01/23/24 04:11 Neut # (Auto) 6.73 K/uL (1.40-6.50) H 01/23/24 04:11 Lymph # (Auto) 2.16 K/uL (1.20-3.40) 01/23/24 04:11 [facility] # (Auto) 0.58 K/uL (0.11-0.59) 01/23/24 04:11 Eos # (Auto) 0.05 K/uL (0.00-0.50) 01/23/24 04:11 Baso # (Auto) 0.09 K/uL (0.00-0.20) 01/23/24 04:11 Immature Gran # (Auto) 0.76 K/uL (0.01-0.20) H 01/23/24 04:11 Absolute Nucleated RBC 0.06 K/uL (0.00-0.12) 01/23/24 04:11 Nucleated RBC % (auto) 0.6 % 01/23/24 04:11 PT 19.3 Seconds (9.0-12.0) H 01/23/24 00:07 INR 1.9 (0.9-1.1) H 01/23/24 00:07 APTT 40 Seconds (21-31) H 01/23/24 00:07 PTT Ratio 1.5 01/23/24 00:07 Fibrinogen 111 mg/dl (184-400) L 01/23/24 00:55 D-Dimer 71880 ug/L FEU (0-500) H* 01/23/24 00:55 Sample Site Art Line 01/23/24 04:09 POC pH 7.08 (7.35-7.45) L* 01/23/24 04:09 POC pCO2 43 mmHg (35-46) 01/23/24 04:09 POC pO2 359 mmHg (80-95) H 01/23/24 04:09 POC HCO3 13 rosy/L (19-24) L 01/23/24 04:09 POC Total CO2 14 mmol/L (24-31) L 01/23/24 04:09 POC Base Excess -17.0 rosy/L (-9-1.8) L 01/23/24 04:09 ABG pH (Temp Correct) 7.094 (7.35-7.45) L* 01/23/24 04:09 ABG pCO2 (Temp Corrct 41 mmHg (35-46) 01/23/24 04:09 POC ABG pO2 at Pt Temp 354 01/23/24 04:09 POC ABG O2 Sat 100.0 % (90-95) H 01/23/24 04:09 Jadiel Test NA 01/23/24 04:09 O2 Delivery Device Ventilator 01/23/24 04:09 POC O2 Rate 26 01/23/24 04:09 POC FiO2 100 % 01/23/24 04:09 Tidal Volume 485 01/23/24 04:09 PEEP 8 01/23/24 04:09 POC Sodium 145 mmol/L (135-144) H 01/23/24 04:09 Sodium 148 mmol/L (136-145) H D 01/23/24 04:11 POC Potassium 4.3 mmol/L (3.3-5.0) 01/23/24 04:09 Potassium 3.4 mmol/L (3.5-5.1) L 01/23/24 04:11 Chloride 120 mmol/L (98-107) H 01/23/24 04:11 Carbon Dioxide 10 mmol/L (21-32) L 01/23/24 04:11 Anion Gap 18 (3-11) H 01/23/24 04:11 BUN 12 mg/dl (6-23) 01/23/24 04:11 Creatinine 0.97 mg/dl (0.6-1.4) D 01/23/24 04:11 Est Cr Clr Drug Dosing 98.9 ml/min 01/23/24 04:11 Est GFR ( Amer) 100.7 ml/min 01/23/24 04:11 Est GFR (Non-Af Amer) 86.9 ml/min 01/23/24 04:11 BUN/Creatinine Ratio 12.4 (10-20) 01/23/24 04:11 Glucose 125 mg/dl (70-99(Fasting)) H 01/23/24 04:11 Lactate 11.8 mmol/L (0.4-2.0) H* 01/23/24 04:11 Calcium 5.1 mg/dl (8.6-10.3) L* 01/23/24 04:11 Ionized Calcium 0.70 mmol/L (1.12-1.32) L* 01/23/24 04:11 Total Bilirubin 4.8 mg/dl (0.2-1.0) H D 01/23/24 04:11 AST 100 U/L (13-39) H 01/23/24 04:11 ALT 31 U/L (7-52) 01/23/24 04:11 Alkaline Phosphatase 29 U/L (34-104) L 01/23/24 04:11 Ammonia 37.0 umol/L (18-72) 01/23/24 00:07 Troponin I High Sens 8.7 pg/ml (0-20) 01/23/24 00:07 Total Protein < 3.0 gm/dl (6.0-8.3) L D 01/23/24 04:11 Albumin < 1.5 gm/dl (3.4-5.0) L 01/23/24 04:11 Globulin TNP 01/23/24 04:11 Albumin/Globulin Ratio TNP 01/23/24 04:11 Lipase TNP 01/23/24 00:07 Ethyl Alcohol mg/dL < 10.0 mg/dl (<10.0) 01/23/24 00:07 Blood Type O Positive 01/23/24 00:07 Antibody Screen NEGATIVE 01/23/24 00:07 Crossmatch See Detail 01/23/24 00:07 Code Status & VTE Plan Code Status Full code VTE Prophylaxis Plan VTE Prophylaxis will be ordered: Yes PG Care Time/CCT Total # of Minutes Spent Total Time Spent with Patient: Total time spent is greater than 50% in coordination of care (as documented) at patient's floor/unit and/or counseling patient: Coding Level of Care Code 28201 INT INP/OBS CARE 3/75MIN Diagnoses Hemorrhagic shock R57.8 Bleeding esophageal varices due to alcoholic liver disease K70.9; I85.11 Hematemesis K92.0 Elevated bilirubin R17 Alcohol abuse F10.10 Liver cirrhosis, alcoholic K70.30 Atrial fibrillation I48.91 Stroke I63.9
[2024-01-23] MEDS: fentaNYL citrate 2,500 MCG/250 ML BAG IV SCH (02:47)
[2024-01-23] MEDS: MIDAZOLAM HCL 125 MG/250 ML BAG IV SCH (02:48)
[2024-01-23] MEDS ORDERED: ALBUT/IPRATROP 3MG/0.5MG NEB 3 ML VIAL NEB PRN (03:01)
--- NOTE | 2024-01-23 03:01 | Communication Note ---
Date of Service: January 23, 2024 58 y.o M with hx of cirrhosis c/b ascites and acute esophageal variceal bleed who presents hemodynamically unstable with active resuscitation with fluid and products. Patient presented to pre-op holding, oriented x3 but difficult to arouse/ lethargic. Patient was on .15 norepi and had received 1 plt, 4 pRBC, 2 FFP. Performed history and physical and had patient sign consent. Moments prior to transporting to OR, lost pulse. Code called. CPR performed. Large volume hematemesis noted. I personally attempted intubation with [place] 3 and MAC 4 however was unable to secure airway given large volume blood in oropharynx. Attempted BMV, prepared for emergency surgical airway, provider Jovan from ICU was then able to secure airway. ROSC achieved however patient remains critical and unstable. Discussed with ICU provider and GI physician that patient needs varices banded. Made decision to perform bedside endoscopy in ICU to minimize transport time given patient's critical state. ICU to perform bedside sedation for procedure. Anesthesia handed off care.
--- NOTE | 2024-01-23 04:12 | GI REPORT ---
[facility] Patient: MARCELO ANGEL : 1965 Sex at : Male Age: 58 Years Procedure: Upper GI endoscopy Date: 01/23/2024 Attending Physician: Anthony Desir MD Referring MD: Marilyn Abdi Do Indications: - Active gastrointestinal bleeding Medications: - General Anesthesia Complications: - No immediate complications. Procedure: - The egd scope was introduced through the mouth and advanced to the antrum of the stomach. - The upper GI endoscopy was unusually difficult due to the patient's cardiovascular instability (hypotension), the patient's cardiovascular instability and excessive bleeding. [Solution]. Findings: - The Z-line was regular and was found 42 cm from the incisors. There was a large amount of frash blood in the esophagus. An active bleeding was seen from distal esophageal ulcer. Unable to deploy rubber bands. The site was injected with 4 ml of ethanolamine, subsequently two endoclips were deployed with good results. There was a single grade two nonbleeding distal esophageal varix. - Large amount of fresh of blood was found in the gastric fundus, in the cardia and in the gastric body. There were no obvious gastric varices. Impression: - Z-line, 42 cm from the incisors. - Active bleeding from distal esophageal ulcer. Unable to deploy rubber bands. The site was injected with 4 ml of ethanolamine, subsequently two endoclips were deployed with good results - In the gastric fundus, in the cardia and in the gastric body. - No specimens collected. Recommendation: - Transfer to [facility] for possible IR intervention if bleeding continues. Procedure Code(s): - 13943-48, Esophagogastroduodenoscopy, flexible, transoral; diagnostic, including collection of specimen(s) by brushing or washing, when performed (separate procedure) Diagnosis Code(s): - F10.20, Alcohol dependence, uncomplicated - K92.2, Gastrointestinal hemorrhage, unspecified CPT(R) - 2022 copyright [employer]. All Rights Reserved. The CPT codes, CCI edits and ICD codes generated are intended as suggestions and were generated based on input data. These codes are preliminary and upon security ambassador review may be revised to meet current compliance and payer requirements. The provider is responsible for the final determination of appropriate codes, and modifiers. Anthony Desir M.D. This document has been electronically signed. Note Initiated:01/23/2024 Note Completed:01/23/2024 4:11 AM Anthony Desir M.D. This document has been electronically signed. Note Amended:01/23/2024 4:15 AM [id number]
[2024-01-23] MEDS: SODIUM BICARB 8.4% INJ 50 MEQ/50 ML SYR IV STA ×2 (04:20)
[2024-01-23] MEDS: VECURONIUM BROMIDE 10 MG VIAL IV ONE (04:37)
[2024-01-23 04:43] LABS: Hematocrit (blood only) 30.6 % (42.0-52.0); Hemoglobin 9.9 g/dl (14.0-18.0); Mean Corpuscular Hemoglobin 30.5 pg (25.0-34.0); Mean Corpuscular Hgb Conc 32.4 g/dL (32.0-36.0); Mean Corpuscular Volume 94.2 fL (80.0-100.0); Mean Platelet Volume 11.1 fL (9.4-12.4); Nucleated RBC # (auto) 0.06 K/uL (0.00-0.12); Nucleated RBC % (auto) 0.6 %; Platelet Count 44 K/uL (130-400); RDW Standard Deviation 51.4 fL (36.4-46.3); Red Blood Count 3.25 M/uL (4.70-6.10); White Blood Count 10.37 K/ul (4.8-10.8)
[2024-01-23 04:43] LABS: iSTAT Art Bld Gas pCO2 Correct 41 mmHg (35-46); iSTAT Art Bld Gas pH Corrected 7.094 (7.35-7.45); iSTAT Arterial Blood Gas HCO3 13 meg/L (19-24); iSTAT Arterial Blood Gas pCO2 43 mmHg (35-46); iSTAT Arterial Blood Gas pH 7.08 (7.35-7.45); iSTAT Arterial Blood Gas pO2 359 mmHg (80-95); iSTAT Arterial Blood Gas pO2 C 354; iSTAT Carbon Dioxide 14 mmol/L (24-31); iSTAT FiO2 100 %; iSTAT Hematocrit 26 % (42-52); iSTAT Hemoglobin 8.8 g/dl (14.0-18.0); iSTAT Potassium 4.3 mmol/L (3.3-5.0); iSTAT Site Art Line; iSTAT Sodium 145 mmol/L (135-144)
[2024-01-23 04:43] LABS: iSTAT Art Bld Gas pCO2 Correct 57 mmHg (35-46); iSTAT Art Bld Gas pH Corrected 6.874 (7.35-7.45); iSTAT Arterial Blood Gas HCO3 11 meg/L (19-24); iSTAT Arterial Blood Gas pCO2 60 mmHg (35-46); iSTAT Arterial Blood Gas pH 6.86 (7.35-7.45); iSTAT Arterial Blood Gas pO2 56 mmHg (80-95); iSTAT Arterial Blood Gas pO2 C 53; iSTAT Carbon Dioxide 13 mmol/L (24-31); iSTAT FiO2 100 %; iSTAT Hematocrit 15 % (42-52); iSTAT Hemoglobin 5.1 g/dl (14.0-18.0); iSTAT Potassium 5.1 mmol/L (3.3-5.0); iSTAT Site Art Line; iSTAT Sodium 143 mmol/L (135-144)
[2024-01-23 04:49] LABS: Basophils # (auto) 0.09 K/uL (0.00-0.20); Basophils % (auto) 0.9 %; Eosinophils # (auto) 0.05 K/uL (0.00-0.50); Eosinophils % (auto) 0.5 %; Immature Granulocytes # (auto) 0.76 K/uL (0.01-0.20); Immature Granulocytes % (auto) 7.3 %; Lymphocytes # (auto) 2.16 K/uL (1.20-3.40); Lymphocytes % (auto) 20.8 %; Monocytes # (auto) 0.58 K/uL (0.11-0.59); Monocytes % (auto) 5.6 %; Neutrophils # (auto) 6.73 K/uL (1.40-6.50); Neutrophils % (auto) 64.9 %
[2024-01-23 04:59] LABS: Alanine Aminotransferase 31 U/L (7-52); Albumin Level < 1.5 gm/dl (3.4-5.0); Alkaline Phosphatase 29 U/L (34-104); Anion Gap 18 (3-11); Aspartate Aminotransferase 100 U/L (13-39); BUN Creatinine Ratio 12.4 (10-20); Bilirubin,Total 4.8 mg/dl (0.2-1.0); Blood Urea Nitrogen 12 mg/dl (6-23); Calcium 5.1 mg/dl (8.6-10.3); Carbon Dioxide 10 mmol/L (21-32); Chloride 120 mmol/L (98-107); Creatinine Clr Calc Pharmacy 98.9 ml/min; Est GFR (African American) 100.7 ml/min; Est GFR (Non-African American) 86.9 ml/min; Glucose 125 mg/dl (70-99(Fasting)); INR 2.2 (0.9-1.1); Potassium 3.4 mmol/L (3.5-5.1); Prothrombin Time 22.4 Seconds (9.0-12.0); Sodium 148 mmol/L (136-145); Total Protein < 3.0 gm/dl (6.0-8.3)
--- NOTE | 2024-01-23 05:00 | Procedure Note ---
Procedure Note Date of Service January 23, 2024 Note INTUBATION PROCEDURE NOTE: Provider: MADELIN Miles Attending: Dr. Chris Pyle time-out was completed verifying correct patient, procedure, site, positioning. Patient was evaluated and required intubation During CODE BLUE/cardiac arrest, requiring secured airway. Sedative agent used: None Paralysis agent used: None Emergent consent was implied given patients rapidly declining clinical status and need for airway protection. The patient was prepared in the appropriate fashion. The patient was easily ventilated using [id number] to achieve adequate oxygenation. A 7.5 [place] endotracheal tube was placed with assistance of gluidoscope to 25 cm at the lip. The stylette was removed and balloon was inflated with 10mL of air. Appropriate Colorimetric change was appreciated. Bilateral breath sounds were heard without air sounds in the abdomen. Postintubation chest x-ray currently pending. Was delayed due to patient condition requiring emergent EGD and aggressive resuscitation with underlying hemorrhagic shock. Patient tolerated the procedure well and there were no immediate complications. Coding CPT Codes Resuscitation - Resuscitation: 86578 Endotracheal Intubation, emergency ([id number]) [facility] [place] Procedure Codes (Charges) Resuscitation Resuscitation: 52448 Endotracheal Intubation, emergency
[2024-01-23] MEDS ORDERED: MIDAZOLAM BOLUS FROM BAG IV PRN (05:34)
[2024-01-23] MEDS ORDERED: fentaNYL BOLUS from BAG IV PRN (05:34)
[2024-01-23] MEDS: ETHANOLAMINE OLEATE 5% 2 ML AMP IV ONE (05:35)
[2024-01-23] MEDS: SODIUM CHLORIDE 0.9% 1,000 ML IV SCH (05:39)
[2024-01-23 05:50] LABS: Fibrinogen 83 mg/dl (184-400)
--- NOTE | 2024-01-23 06:41 | Emergency Department Note ---
Impression & Plan Acute GI bleeding, Anemia, Hemorrhagic shock, Hyperbilirubinemia, Coagulopathy, Alcohol abuse, Liver cirrhosis, alcoholic, Thrombocytopenia ED Provider Note ED Provider Note NAME: MARCELO ANGEL AGE:58 SEX: Male : 1965 ARRIVES VIA: EMS INFORMANT: Patient, EMS ED PROVIDER(s): Marilyn Abdi DO CHIEF COMPLAINT: GI bleed, abdominal pain HPI: This is a 58-year-old male who presents emergency department via EMS due to concern for GI bleed. EMS reports patient told them he began vomiting earlier this evening and did complain of abdominal pain. They state on their arrival there is approximately 500 mL of blood in a basin and patient had blood down the front of them. Safety Trainer reports patient hypotensive initially and ill- appearing with obvious jaundice. IV established and route and patient given approximately 500 mL bolus. They state patient with further hematemesis and route. Patient states he began vomiting blood earlier this evening and developed abdominal pain. He denies fevers or chills. Denies any black or bloody stools over the last several days. Patient states he does not use any antiplatelet or anticoagulation medication. He states he was recently hospitalized for the same thing and was started on medication for his stomach. He denies any change in diet. Denies any alcohol use earlier tonight. PAST MEDICAL HISTORY:See Below PAST SURGICAL HISTORY:See Below FAMILY HISTORY:See Below SOCIAL HISTORY:See Below HOME MEDICATIONS:See Below ALLERGIES:See Below VITALS:See Below PHYSICAL EXAMINATION: GENERAL: alert, unwell appearing, well nourished, moderate distress, bloodstains down the front of the patient's shirt and dried blood noted around the mouth EYE EXAM: normal conjunctiva, PERRL and EOM's grossly intact OROPHARYNX: no exudate, no erythema, lips, buccal mucosa, and tongue normal and mucous membranes are dry, dried blood and blood-tinged mucus noted in the oral secretions and oropharynx NECK: supple, no nuchal rigidity, no adenopathy, non-tender LUNGS: Clear to auscultation. Normal chest wall mechanics, no w/r/r HEART: no murmurs, S1 normal and S2 normal ABDOMEN: abdomen soft, mild discomfort generally with palpation, normo-active bowel sounds, no masses, no rebound or guarding. Soft and easily reducible umbilical hernia noted. BACK: Back is symmetrical on inspection and there is no deformity, no midline tenderness, no CVA tenderness. SKIN: no rashes, petechiae, orbruising; jaundiced UPPER EXTREMITIES: upper extremities are grossly normal. FROM, nml pulses b/l. LOWER EXTREMITIES: 1+ b/l pitting edema. FROM, nml pulses b/l. NEURO EXAM: Normal sensorium, cranial nerves II-XII grossly intact, normal speech, no facial droop,nogross weakness of arms, no gross weakness of legs. Gross sensation intact. No ataxia. Vital Signs: reviewed and remarkable Differential Diagnosis: AVM, coagulopathy, colitis, inflammatory bowel disease, malignancy, Kathy- Khan tear, esophagitis, peptic ulcer disease, variceal bleed, gastritis, hemorrhoids, as well as others were entertained. MEDICAL DECISION MAKING: This is a 58-year-old male presents emergency department due to concern for GI bleed. Patient noted to be ill-appearing and markedly jaundiced on arrival with active hematemesis. He was hypotensive although not tachycardic. He was afebrile. Patient had received 500 mL NSS en route from EMS. Patient with history of alcohol abuse, peptic ulcer disease, and esophageal varices. IV fluids were continued due to his persistent hypotension. While a second IV was being established, a posae-[id number] BMP was obtained. Patient's initial POC hemoglobin 7.1. After 1 full liter of normal saline had infused patient was still markedly hypotensive. Given official type and screen was still pending, blood bank contacted for uncrossed matched blood. This was started at bedside additionally. Protonix drip as well as octreotide drip were started and hung additionally. Patient also given IV Rocephin as a precaution. Patient continued to be hypotensive despite these ongoing drips, additional normal saline, and 1 unit of blood. While awaiting second unit of blood, Levophed was added. Patient's blood pressure did improve. During this time I did contact the admitting hospitalist team as well as the overnight ICU [facility] to discuss the patient's case. I did discuss with the patient blood transfusion and he gave verbal consent in front of multiple staff members. Blood consent form signed by me. A second unit of uncrossed match blood was started at bedside. We did page the on-call GI specialist to did call back. I did discuss the case with him as well as her ongoing efforts to resuscitate the patient as he was still unstable and my concern for need of urgent endoscopy. Patient did complain of increased shortness of breath. He was maintaining his oxygen saturations with oxygen via nasal cannula. I added a chest x-ray to evaluate for changes in lung rubio as well as to rule out free air as patient was never stable enough to send for additional CT imaging. No free air noted, no obvious pulmonary edema, no obvious consolidation. He will contact char house supervisor to make arrangements for urgent procedural intervention. I then updated the hospitalist and ICU [facility]. Patient then began to have bright red blood per rectum additionally. After noting the volume of bright red blood per rectum, the massive transfusion protocol was activated. Further packed red cells as well as FFP and platelets came to bedside and were hung. Unfortunately the Levophed needed to be titrated upward as patient continued to be hypotensive and had ongoing blood losses both her vomiting as well as per rectum. Patient's initial lactic acid significantly elevated over 6. Patient's hemoglobin now markedly elevated compared to prior at 20. Patient was noted to be thrombocytopenic additionally. IV vitamin K added due to coagulopathy additionally which is worse compared to prior also. Patient rechecked multiple times. Eventually GI did present to bedside, and additional arrangements made for urgent endoscopy in the OR. Consultation(s): 0042: Discussed with Dr. Curry, [facility] hospitalist team. Discussed with Jovan Veliz, ICU [facility]. 0052: Discussed with Dr. Desir, GI, due to concern for need for urgent endoscopy. 0150: Discussed with GI again who now presents to bedside. ER Treatment Provided: See below Diagnostics Interpreted By Me: -ECG: Normal sinus at 99, normal axis, normal QRS, prolonged QTc, nonspecific ST/T wave changes -Cardiac Monitoring: An order was placed for continuous cardiac monitoring. The monitor shows a rate of 92 with normal sinus rhythm. -Laboratory studies: As stated above and show below. -Imaging studies: X-ray Chest: A single view study of the chest was reviewed and was negative for cardiomegaly, focal infiltrate, effusion, pulmonary edema, or wide mediastinum. No free air. Triage Nursing Note Reviewed Prior/Outside Records Reviewed -prior EGD from January 11, 2024 reviewed, prior discharge summary reviewed Critical Care: Critical care of 93 min performed to assess and manage high likelihood of life- threatening GI bleed and hemorrhagic shock, involving labs and imaging performed with assessment to evaluate GI bleed diagnosis with frequent reassessment. This time includes bedside time, treatment discussions with patient/family/consultants, documentation time and excludes procedure time. Past Med/Surg History Problem List Thrombocytopenia (Acute) Coagulopathy (Acute) Hyperbilirubinemia (Acute) Hemorrhagic shock (Acute) Anemia (Acute) Acute GI bleeding (Acute) Hemorrhagic shock Bleeding esophageal varices due to alcoholic liver disease Abdominal pain (Acute) Elevated bilirubin (Acute) Alcohol abuse (Acute) Alcohol intoxication (Acute) Anemia (Acute) Acute pancreatitis (Acute) History of stroke Hematuria (Acute) Abdominal pain (Acute) Cholelithiasis Liver cirrhosis, alcoholic (Acute) GIB (gastrointestinal bleeding) (Acute) Alcohol use (Acute) daily drinker Atrial fibrillation (Acute) Hematemesis Anxiety Tear of medial meniscus of left knee Encounter for pre-operative examination Headache Cervical pain (neck) Tobacco dependence Stroke 2016-right sided weakness-no current deficits Hypertension (Chronic) pt reports home readings range 180s/110-120s Medical History GERD (gastroesophageal reflux disease) controlled, stable per pt Surgical History H/O endoscopic sinus surgery H/O nasal septoplasty History of open reduction and internal fixation (ORIF) procedure right foot - 07/[facility] Family History Grandmother (Maternal) Diabetes Other No significant family history Denies family history of Ovarian cancer Prostate cancer Depression Heart disease Myocardial infarction Breast cancer Lung cancer Colorectal cancer Stroke Social History Smoking Status: Current every day smoker Tobacco Type: Cigarettes packs per day: 1; Cigarettes Per Day: smokes cigarettes 20 per day- if smokes cigars 1/2 pack- advised; Second Hand Exposure: No; Do You Dip or Chew Tobacco: No; Hx Alcohol Use: Yes Alcohol type: beer Alcohol Intake Frequency: 4 or More x per/Week Hx Substance Use: No Preferred Language: Portuguese Communication Ability: Effective Visual Impairment: Limited 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: Normal Fruit Picker Required: No Beliefs That Will Affect Care: None marital status: single Current Living Situation: Alone current occupational status: employed How many Children do You have: 0 Feels Safe at Home: Yes Childhood Exposure to Second-Hand Smoke: Yes Diet: regular caffeine: No during the past year weight has: remained stable Dental Care, Regularly: No Physical Activity Frequency: Daily Seatbelt Use: never Sunscreen Use: No Assistive Devices: None Allergies Allergies Allergy/AdvReac Type Severity Reaction Status Date / Time bee venom protein (honey bee) Allergy Severe Anaphylaxis Verified 01/19/24 09:57 Home Meds Home Medications Medication Instructions Recorded Confirmed carvedilol 6.25 mg tablet 6.25 mg PO DAILY 01/23/24 01/23/24 Previous Rx's Medication Instructions Recorded pantoprazole 40 mg tablet,delayed 40 mg PO BID #60 tabs 12/31/23 release sucralfate 1 gram tablet 1 g PO ACHS #120 tabs 12/31/23 doxycycline hyclate 100 mg capsule 100 mg PO BID 28 days #56 caps 01/06/24 baclofen 10 mg tablet 10 mg PO TID #90 tabs 01/19/24 folic acid 1 mg tablet 1 mg PO DAILY #30 tabs 01/19/24 furosemide 40 mg tablet 40 mg PO DAILY #30 tabs 01/19/24 multivitamin with folic acid 400 1 tab PO DAILY #30 tabs 01/19/24 mcg tablet (Tab-A-Piter) omeprazole 20 mg capsule,delayed 20 mg PO BID #60 caps 01/19/24 release spironolactone 100 mg tablet 100 mg PO DAILY #30 tabs 01/19/24 Results & Data (ED) Vital Signs Vital Signs - 24 hr 01/22/24 23:39 01/23/24 00:04 01/23/24 00:09 Temperature Temperature Source Pulse Rate 98 H 98 H Pulse Rate from SpO2 Sensor Pulse Rhythm Pulse Strength Respiratory Rate 30 H Respiratory Effort / Characteristics Non-Labored Spontaneous Respiratory Depth Normal Respiratory Pattern Regular Blood Pressure 72/40 L 65/47 L Blood Pressure Mean 50 50 Blood Pressure Position Lying Pulse Oximetry 88 L Oxygen Delivery Method Room Air Oxygen Flow Rate Sepsis Recent Fever Within 48 Hours No Sepsis New/Unexplained Change in Mental Status N/A Sepsis Action Taken by Nursing Physician Notified Arterial BP Systolic Arterial BP Diastolic Arterial BP Mean Arterial Pulse Rate 01/23/24 00:12 01/23/24 00:19 01/23/24 00:21 Temperature 37.6 C H Temperature Source Axillary Pulse Rate 93 H 97 H 89 Pulse Rate from SpO2 Sensor 93 H 90 Pulse Rhythm Pulse Strength Respiratory Rate 28 H 20 20 Respiratory Effort / Characteristics Respiratory Depth Respiratory Pattern Blood Pressure 106/24 L Blood Pressure Mean 51 Blood Pressure Position Lying Pulse Oximetry 100 99 99 Oxygen Delivery Method Nasal Cannula Nasal Cannula Oxygen Flow Rate 4 4 4 Sepsis Recent Fever Within 48 Hours Sepsis New/Unexplained Change in Mental Status Sepsis Action Taken by Nursing Arterial BP Systolic Arterial BP Diastolic Arterial BP Mean Arterial Pulse Rate 01/23/24 00:21 01/23/24 00:27 01/23/24 00:31 Temperature Temperature Source Pulse Rate 94 H Pulse Rate from SpO2 Sensor 93 H Pulse Rhythm Pulse Strength Respiratory Rate 22 Respiratory Effort / Characteristics Respiratory Depth Respiratory Pattern Blood Pressure 106/24 L 94/39 L Blood Pressure Mean 51 79 Blood Pressure Position Pulse Oximetry 99 Oxygen Delivery Method Nasal Cannula Oxygen Flow Rate 4 Sepsis Recent Fever Within 48 Hours Sepsis New/Unexplained Change in Mental Status Sepsis Action Taken by Nursing Arterial BP Systolic Arterial BP Diastolic Arterial BP Mean Arterial Pulse Rate 01/23/24 00:39 01/23/24 00:42 01/23/24 00:44 Temperature 37.7 C H Temperature Source Axillary Pulse Rate 103 H 103 H Pulse Rate from SpO2 Sensor 105 H Pulse Rhythm Regular Pulse Strength Normal Respiratory Rate 20 21 Respiratory Effort / Characteristics Respiratory Depth Respiratory Pattern Blood Pressure 69/49 L Blood Pressure Mean 55 Blood Pressure Position Lying Pulse Oximetry 99 100 98 Oxygen Delivery Method Nasal Cannula Nasal Cannula Oxygen Flow Rate 4 4 4 Sepsis Recent Fever Within 48 Hours Sepsis New/Unexplained Change in Mental Status Sepsis Action Taken by Nursing Arterial BP Systolic Arterial BP Diastolic Arterial BP Mean Arterial Pulse Rate 01/23/24 00:53 01/23/24 00:55 01/23/24 01:10 Temperature 37 C Temperature Source Axillary Pulse Rate 100 H 101 H Pulse Rate from SpO2 Sensor Pulse Rhythm Regular Regular Pulse Strength Normal Normal Respiratory Rate 30 H 28 H Respiratory Effort / Characteristics Respiratory Depth Respiratory Pattern Blood Pressure 84/60 L 124/57 L 86/65 L Blood Pressure Mean 68 72 72 Blood Pressure Position Pulse Oximetry 100 100 Oxygen Delivery Method Oxygen Flow Rate 4 Sepsis Recent Fever Within 48 Hours Sepsis New/Unexplained Change in Mental Status Sepsis Action Taken by Nursing Arterial BP Systolic Arterial BP Diastolic Arterial BP Mean Arterial Pulse Rate 01/23/24 01:12 01/23/24 01:12 01/23/24 01:25 Temperature Temperature Source Pulse Rate 99 H Pulse Rate from SpO2 Sensor 97 H Pulse Rhythm Pulse Strength Respiratory Rate 18 Respiratory Effort / Characteristics Respiratory Depth Respiratory Pattern Blood Pressure 86/65 L 84/56 L Blood Pressure Mean 68 72 Blood Pressure Position Pulse Oximetry 100 Oxygen Delivery Method Nasal Cannula Oxygen Flow Rate 4 Sepsis Recent Fever Within 48 Hours Sepsis New/Unexplained Change in Mental Status Sepsis Action Taken by Nursing Arterial BP Systolic Arterial BP Diastolic Arterial BP Mean Arterial Pulse Rate 01/23/24 01:33 01/23/24 01:36 01/23/24 01:39 Temperature Temperature Source Pulse Rate 101 H 96 H 102 H Pulse Rate from SpO2 Sensor 101 H 99 H Pulse Rhythm Pulse Strength Respiratory Rate 32 H 34 H 24 Respiratory Effort / Characteristics Respiratory Depth Respiratory Pattern Blood Pressure 98/61 L Blood Pressure Mean 73 Blood Pressure Position Pulse Oximetry 100 100 99 Oxygen Delivery Method Nasal Cannula Nasal Cannula Oxygen Flow Rate 4 4 Sepsis Recent Fever Within 48 Hours Sepsis New/Unexplained Change in Mental Status Sepsis Action Taken by Nursing Arterial BP Systolic 82 Arterial BP Diastolic 36 Arterial BP Mean 53 Arterial Pulse Rate 112 H 176 H 01/23/24 01:40 01/23/24 02:00 01/23/24 02:01 Temperature Temperature Source Pulse Rate 104 H 111 H 112 H Pulse Rate from SpO2 Sensor 112 H Pulse Rhythm Pulse Strength Respiratory Rate 17 41 H 37 H Respiratory Effort / Characteristics Respiratory Depth Respiratory Pattern Blood Pressure 110/47 L 87/46 L Blood Pressure Mean 68 59 Blood Pressure Position Lying Pulse Oximetry 99 99 99 Oxygen Delivery Method Nasal Cannula Oxygen Flow Rate 4 4 Sepsis Recent Fever Within 48 Hours Sepsis New/Unexplained Change in Mental Status Sepsis Action Taken by Nursing Arterial BP Systolic 78 Arterial BP Diastolic 39 Arterial BP Mean 50 Arterial Pulse Rate 110 H 01/23/24 02:15 Temperature Temperature Source Pulse Rate Pulse Rate from SpO2 Sensor Pulse Rhythm Pulse Strength Respiratory Rate Respiratory Effort / Characteristics Respiratory Depth Respiratory Pattern Blood Pressure Blood Pressure Mean Blood Pressure Position Pulse Oximetry Oxygen Delivery Method Nasal Cannula Oxygen Flow Rate 4 Sepsis Recent Fever Within 48 Hours Sepsis New/Unexplained Change in Mental Status Sepsis Action Taken by Nursing Arterial BP Systolic Arterial BP Diastolic Arterial BP Mean Arterial Pulse Rate Laboratory Data 01/23/24 04:11 01/23/24 04:11 Lab Results 01/23/24 01/23/24 01/23/24 Range/Units 00:07 00:55 01:55 WBC 11.76 H (4.8-10.8) K/ul RBC 1.91 L (4.70-6.10) M/uL Hgb 6.6 L* (14.0-18.0) g/dl Hct 18.0 L* (42.0-52.0) % MCV 94.2 (80.0-100.0) fL MCH 34.6 H (25.0-34.0) pg MCHC 36.7 H (32.0-36.0) g/dL RDW Std Deviation 81.6 H (36.4-46.3) fL RDW Coeff of Jason 23.7 H (11.5-14.5) % Plt Count 98 L (130-400) K/uL MPV 11.8 (9.4-12.4) fL PT 19.3 H (9.0-12.0) Seconds INR 1.9 H (0.9-1.1) APTT 40 H (21-31) Seconds PTT Ratio 1.5 Fibrinogen 111 L (184-400) mg/dl D-Dimer 27953 H* (0-500) ug/L FEU Sodium 134 L 136 (136-145) mmol/L Potassium 3.6 3.8 (3.5-5.1) mmol/L Chloride 105 110 H (98-107) mmol/L Carbon Dioxide 18 L 13 L (21-32) mmol/L Anion Gap 11 13 H (3-11) BUN 16 16 (6-23) mg/dl Creatinine 1.56 H 1.43 H (0.6-1.4) mg/dl Est Cr Clr Drug Dosing 61.5 67.1 ml/min Est GFR ( Amer) 56.7 63.0 ml/min Est GFR (Non-Af Amer) 48.9 54.4 ml/min BUN/Creatinine Ratio 10.3 11.2 (10-20) Glucose 106 H 130 H (70-99(Fasting)) mg/dl Lactate 6.6 H* 11.9 H* (0.4-2.0) mmol/L Calcium 7.9 L 6.5 L (8.6-10.3) mg/dl Ionized Calcium 0.88 L (1.12-1.32) mmol/L Total Bilirubin 20.2 H (0.2-1.0) mg/dl AST 119 H (13-39) U/L ALT 40 (7-52) U/L Alkaline Phosphatase 106 H (34-104) U/L Ammonia 37.0 (18-72) umol/L Troponin I High Sens 8.7 (0-20) pg/ml Total Protein 6.0 (6.0-8.3) gm/dl Albumin 2.1 L (3.4-5.0) gm/dl Globulin 3.9 (2.5-4.0) gm/dl Albumin/Globulin Ratio 0.5 L (0.9-2) Lipase TNP Ethyl Alcohol mg/dL < 10.0 (<10.0) mg/dl Blood Type O Positive Antibody Screen NEGATIVE Crossmatch See Detail Administered Medications Pantoprazole Sodium 40 mg/ (Dextrose) 100 mls @ 20 mls/hr IV Q5H [facility] Stop: 02/22/24 00:29 Last Infusion: 01/23/24 05:33 Dose: Infused Documented By: [facility] Admin: 01/23/24 00:50 Dose: 8 mg/hr, 20 mls/hr Documented By: GERRY Octreotide Acetate 500 mcg/ (Sodium Chloride) 100.5 mls @ 10.05 mls/hr IV .Q10H [facility] Stop: 02/22/24 00:14 Last Infusion: 01/23/24 05:35 Dose: Infused Documented By: [facility] Admin: 01/23/24 00:36 Dose: 50 mcg/hr, 10.1 mls/hr Documented By: GERRY Norepinephrine Bitartrate (Levophed/D5w) 4 mg in 250 mls @ 35.475 mls/hr IV .Q7H3M [facility]; Protocol Stop: 02/22/24 00:14 Last Titration: 01/23/24 05:35 Dose: Infused Documented By: [facility] Titration: 01/23/24 02:00 Dose: 0.11 mcg/kg/min, 35.5 mls/hr Documented By: Titration: 01/23/24 01:50 Dose: 0.09 mcg/kg/min, 29 mls/hr Documented By: Titration: 01/23/24 01:43 Dose: 0.07 mcg/kg/min, 22.6 mls/hr Documented By: Titration: 01/23/24 00:40 Dose: 0.09 mcg/kg/min, 29 mls/hr Documented By: Admin: 01/23/24 00:18 Dose: 0.07 mcg/kg/min, 22.6 mls/hr Documented By: GERRY Sodium Chloride (Nss) 1,000 mls @ 125 mls/hr IV .Q8H [facility] Stop: 02/22/24 00:44 Last Admin: 01/23/24 05:39 Dose: Not Given Documented By: MAHAD Discontinued Medications Calcium Gluconate (Calcium Gluconate 1000 Mg/60 Ml Nss) Confirm Administered Dose 2,000 mg IV .STK-MED ONE Stop: 01/23/24 01:33 Last Admin: 01/23/24 01:45 Dose: 1,000 mg Documented By: GERRY Epinephrine HCl (Epinephrine 1.5" Ndl 0.1 Mg/Ml Syr) Confirm Administered Dose 1 mg IV .STK-MED ONE Stop: 01/23/24 04:17 Last Admin: 01/23/24 04:16 Dose: 1 mg Documented By: MAHAD Ethanolamine Oleate (Ethanolamine Oleate 5% 2 Ml Amp) Confirm Administered Dose 4 ml IV .STK-MED ONE Stop: 01/23/24 04:18 Last Admin: 01/23/24 05:35 Dose: 4 ml Documented By: MAHAD Pantoprazole Sodium 80 mg/ (Dextrose) 120 mls @ 480 mls/hr IV NOW ONE Stop: 01/23/24 00:18 Last Infusion: 01/23/24 00:50 Dose: Infused Documented By: Admin: 01/23/24 00:34 Dose: 480 mls/hr Documented By: GERRY Ceftriaxone Sodium (Rocephin) 2,000 mg in 50 mls @ 100 mls/hr IV NOW STA Stop: 01/23/24 00:33 Last Admin: 01/23/24 00:19 Dose: 100 mls/hr Documented By: GERRY Sodium Chloride (Nss) 500 mls @ 999 mls/hr IV .Q31M [facility] Stop: 01/23/24 00:34 Last Infusion: 01/23/24 01:06 Dose: Infused Documented By: [facility] Admin: 01/23/24 00:35 Dose: 999 mls/hr Documented By: GERRY Calcium Gluconate () 1,000 mg in 60 mls @ 240 mls/hr IV Q15M [facility] Stop: 01/23/24 02:14 Last Infusion: 01/23/24 02:01 Dose: Infused Documented By: [facility] Admin: 01/23/24 01:46 Dose: 240 mls/hr Documented By: Admin: 01/23/24 01:45 Dose: Not Given Documented By: GERRY Phytonadione 5 mg/ Dextrose 50.5 mls @ 101 mls/hr IV ONE ONE Stop: 01/23/24 02:21 Last Infusion: 01/23/24 02:22 Dose: Infused Documented By: [facility] Admin: 01/23/24 01:52 Dose: 101 mls/hr Documented By: [facility] Calcium Gluconate () 1,000 mg in 60 mls @ 240 mls/hr IV Q15M [facility] Stop: 01/23/24 05:14 Last Infusion: 01/23/24 05:15 Dose: Infused Documented By: [facility] Admin: 01/23/24 05:00 Dose: 240 mls/hr Documented By: [facility] Infusion: 01/23/24 05:00 Dose: Infused Documented By: [facility] Admin: 01/23/24 04:45 Dose: 240 mls/hr Documented By: [facility] Infusion: 01/23/24 04:45 Dose: Infused Documented By: [facility] Admin: 01/23/24 04:30 Dose: 240 mls/hr Documented By: [facility] Norepinephrine Bitartrate (Norepinephrine/D5w 4 Mg/250 Ml) Confirm Administered Dose 4 mg IV .STK-MED ONE Stop: 01/23/24 00:13 Last Admin: 01/23/24 00:28 Dose: Not Given Documented By: GERRY Sodium Bicarbonate (Sodium Bicarb 8.4% Inj 50 Meq/50 Ml Syr) 50 meq IV NOW STA Stop: 01/23/24 04:14 Last Admin: 01/23/24 04:20 Dose: 50 meq Documented By: [facility] Sodium Bicarbonate (Sodium Bicarb 8.4% Inj 50 Meq/50 Ml Syr) 50 meq IV NOW STA Stop: 01/23/24 04:14 Last Admin: 01/23/24 04:20 Dose: 50 meq Documented By: [facility] Vecuronium [place] (Vecuronium [place] 10 Mg Vial) Confirm Administered Dose 10 mg IV .STK-MED ONE Stop: 01/23/24 03:13 Last Admin: 01/23/24 04:37 Dose: Not Given Documented By: [facility] Discharge Plan Visit Data Chief Complaint: GI Bleed Stated Complaint: VOMITING BLOOD, ABDOMINAL PAIN ED Provider: Marilyn Abdi Discharge Problem: Acute GI bleeding, Anemia, Hemorrhagic shock, Hyperbilirubinemia, Coagulopathy, Alcohol abuse, Liver cirrhosis, alcoholic, Thrombocytopenia Patient Disposition: Admitted As Inpatient Discharge Instructions Interventions: ED Discharge Assessment Last Done: 01/23/24 02:15
[2024-01-23] MEDS: fentaNYL citrate 2,500 MCG/250 ML BAG IV ONE (06:57)
[2024-01-23] MEDS: MIDAZOLAM HCL 125MG/250ML D5W IV ONE (06:57)
--- NOTE | 2024-01-23 07:22 | Discharge Summary ---
Date of Service January 23, 2024 Admission HPI Per Admitting Provider The patient is a 58-year-old male with a past medical history including alcohol abuse, pancreatitis, history of CVA, alcoholic liver cirrhosis, GI bleeding status post recent variceal banding at [facility], atrial fibrillation, tobacco dependence and hypertension. Upon presentation to the emergency department he was placed in mass transfusion protocol, Protonix drip, octreotide drip, Levophed per protocol, aggressive fluid rehydration, vitamin K, ceftriaxone, and calcium gluconate. Gastroenterology was called, who came to the emergency department and planned to take the patient to endoscopy suite for emergent EGD and banding. While in the endoscopy suite, before EGD could be performed, the patient underwent a CODE BLUE, was resuscitated, and then transferred to the ICU where EGD with banding was performed. Patient was then emergently transferred to [facility] in [place] for ongoing care Admission Exam Per Admitting Provider The patient is unresponsive, appears jaundiced, having multiple episodes of vomiting and hematemesis HEENT--PERRL, EOMI, mucous membranes and oropharynx dry, scleral icterus. Neck--supple. No JVD. No bruits. Thyroid normal, trachea midline, no adenopathy. Heart--tachycardic. No murmurs, rubs or gallops. Lungs- coarse breath sounds bilaterally Abdomen--normal bowel sounds and soft. Nontender. Mildly distended Extremities--No edema. Dermatologic--jaundice Neurologic--cranial nerves II through XII grossly intact. Rheumatologic--limited exam Psychiatric--unresponsive. Principal Diagnosis Hypovolemic shock GI Bleeds Discharge Exam Unobtainable as patient was discharged before I could see him. Please see attending attestation. Discharge Data Allergies Allergy/AdvReac Type Severity Reaction Status Date / Time bee venom protein (honey bee) Allergy Severe Anaphylaxis Verified 01/19/24 09:57 Consultations 01/23/24 01:07 ED Decision to Admit Stat 01/23/24 03:01 Consult Extractor Filler Routine 01/23/24 04:04 Burn CD for patient Stat Procedures Performed Operation Date: 01/23/24 14:30 Actual Procedures p Esophagogastroduodenoscopy - Anthony Desir MD Total Time Total Time Spent Total Time Spent (In Minutes): see attending attestation Discharge Plan Discharge Items Patient Disposition: Transfer Acute Care Hospital Reason For Visit: HYPOVOLEMIC SHOCK, UGI BLEED Discharge Diagnosis: HYPOVOLEMIC SHOCK, UGI BLEED Activity: Per Instructions section Non-emergency contact: Primary Care Provider Call non-emergency contact if: you have any medication questions Follow-up/Referrals: Giovanna Ramachandran CRNP [Primary Care Provider] - Diet: Other - See Diet Comment Diet Comment: NPO Addtl Attending Provider Instructions: (1) Hemorrhagic shock: Reason Critically Ill: 58-year-old male with past medical history significant for alcoholic cirrhosis, esophageal variceal bleed, and previous banding now presents to the ICU with acute GI bleed, s/p EGD with clips x 2 placed for distal esophageal ulcer with this arterial bleed. Now awaiting transfer to [facility] (2) Neuro - Sedation: Fentanyl and Versed drips (3) Cardiac - Hemorrhagic shockSecondary to acute GI bleed. currently on vasopressor support with Levophed drip. A-line inserted for continuous hemodynamic monitoring. Undergoing rapid transfusion. (4) Cardiac arrestpatient Went into PEA arrest and received CPR, with bicarb a nd epinephrine pushes to achieve ROSC. He was intubated during that time and undergoing massive transfusion, with vasopressors/levo. Currently sinus tachycardia on monitor. (5) Respiratory - Mechanical ventilationpatient intubating during cardiac arrest. No history of pulmonary disease. No significant hypoxia, and acidosis primarily Metabolic on ABG. Patient to remain intubated until stable. Continuous monitoring on pulse ox. Wean vent as tolerated. (6) GI - Acute GI bleedpatient with recent admission for bleeding esophageal varices and underwent esophageal Banding, And underwent transfer to [facility] and was being followed by hepatology. Now presents with upper and lower GI bleeding, emergent EGD with distal esophageal ulcer with arterial bleed and received clips x 2 per gastroenterology. Now transferring to [facility] for IR capability and further management. (7) RENAL/LYTES - AKIlikely prerenal in the setting of GI bleed/hypotensive. Monitor routine BMPs and replete electrolytes as indicated. Maintain MAP greater than 65. Avoid nephrotoxins and renally adjust medications. Continue with aggressive fluid resuscitation. Metabolic acidosis Secondary to lactic acidosis with lactate 11.9, also with liver dysfunction/cirrhosis and acute GI bleed with hemorrhagic shock. Continue with aggressive fluid resuscitation and massive transfusion protocol. Continue with bicarb infusions. Repeat ABG pending. (8) - Foleystrict I's and O's (9) ENDO - No history of diabetes or thyroid disease. ICU hyperglycemic protocol (10) HEME - Acute blood loss anemia Patient undergoing massive transfusion with [place] and protocol due to underlying GI bleed. Patient received multiple units RBCs, FFP, and 2 units platelets along with 2 units cryo and vitamin K. Repeat CBC and INR currently pending and will transfuse as indicated per protocol. ID - Empiric ceftriaxone LINES/IV ACCESS - Large-bore peripheral IVs, A-line DVT PROPHYLAXIS - SCDs Pending Studies at Discharge: No Stand-Alone Forms: [facility] Skilled Items Patient informed of condition?: Yes DNR: No Discharge Level of Care: Other Communicable Disease: No Discharge Prognosis: Deteriorating Lines: Peripheral IV Urinary Catheter: Yes Medications and DC Order Prescriptions: Continued doxycycline hyclate 100 mg capsule 100 mg PO BID 28 Days Qty: 56 0RF omeprazole 20 mg capsule,delayed release(DR/EC) 20 mg PO BID Qty: 60 2RF furosemide 40 mg tablet 40 mg PO DAILY Qty: 30 2RF spironolactone 100 mg tablet 100 mg PO DAILY Qty: 30 2RF baclofen 10 mg tablet 10 mg PO TID Qty: 90 2RF Rx Instructions: morning, noon, before bed, for alcohol cravings and S/E of liver disease multivitamin with folic acid [Tab-A-Piter] 400 mcg tablet 1 tab PO DAILY Qty: 30 0RF folic acid 1 mg tablet 1 mg PO DAILY Qty: 30 2RF carvedilol 6.25 mg tablet 6.25 mg PO DAILY Rx Instructions: must administer with a meal/food -to increase to BID by oupt hepatology pantoprazole 40 mg tablet,delayed release (DR/EC) 40 mg PO BID Qty: 60 0RF sucralfate 1 gram tablet 1 g PO ACHS Qty: 120 0RF Discharge Orders: Discharge Order (Routine); Ordered 01/23/24 Ordered By: Surinder Feliciano Admission Data Admit Date/Time: 01/23/24 02:22 Attending Provider: Nubia Crenshaw Admit Provider: Bud Curry Primary Care Provider: Giovanna Ramachandran Other Providers: Carlos Perez; Bud Curry Other Interventions: Discharge Summary Assessment (RN) Last Done: 01/23/24 06:09
[2024-01-23] MEDS ORDERED: ICU Protocol for HYPERglycemia SCH (07:30)
--- NOTE | 2024-01-23 08:01 | XRay Report ---
XR chest 1V portable HISTORY: 58 years-old Male abd pain, r/o FA acute chest and abdominal pain COMPARISON: 06/21/2023 TECHNIQUE: AP view of the chest FINDINGS: Cardiomediastinal and hilar silhouettes are unchanged. No pneumothorax, pleural effusion, airspace co nsolidation or pulmonary edema. Subcentimeter calcified granuloma of the basal right lower lobe redem onstrated. Bones appear grossly intact. IMPRESSION: No acute process. ACT 112: Negative or not required by law. The above report was generated using voice recognition software. It may contain grammatical, syntax o r spelling errors. Electronically signed by: Clifford Lazo M.D. 01/23/2024 8:00 AM
--- NOTE | 2024-01-23 08:02 | XRay Report ---
XR chest 1V portable HISTORY: 58 years-old Male intubation acute respiratory failure COMPARISON: Chest radiograph of same day at 1:22 AM TECHNIQUE: AP view of the chest FINDINGS: Endotracheal tube overlies the midline, 4.8 cm superior to the attila. Pulmonary vascular congestion. No pneumothorax or pleural effusion. Subcentimeter right lower lobe calcified granuloma. Bones are g rossly intact. IMPRESSION: Endotracheal tube overlies the midline, 4.8 cm superior to the attila. ACT 112: Negative or not required by law. The above report was generated using voice recognition software. It may contain grammatical, syntax o r spelling errors. Electronically signed by: Clifford Lazo M.D. 01/23/2024 8:01 AM
--- NOTE | 2024-01-23 14:49 | Electrocardiogram Report ---
Test Reason : Blood Pressure : / mmHG Vent. Rate : 099 BPM Atrial Rate : 099 BPM P-R Int : 138 ms QRS Dur : 094 ms QT Int : 426 ms P-R-T Axes : 053 -01 078 degrees QTc Int : 546 ms Normal sinus rhythm Nonspecific ST abnormality Prolonged QT Abnormal ECG When compared with ECG of 10-JAN-2024 04:52, ST now depressed in Lateral leads QT has lengthened Confirmed by Jose Antonio ([id number]) on 01/23/2024 2:48:51 PM Referred By: REFERRED SELF Confirmed By:Jose Antonio
--- NOTE | 2024-01-23 21:07 | Billing Data ---
Date of Service January 23, 2024 Coding Level of Care Code 56255 CRITICAL CARE M
--- NOTE | 2024-01-23 21:10 | Billing Data ---
Date of Service January 23, 2024 Coding Level of Care Code INP/OBS EV SAME DAY LV 1,45MIN
--- NOTE | 2024-01-24 12:47 | Gastrointestinal Consultation ---
Date of Consultation January 23, 2024 Assessment & Plan (1) Hemorrhagic shock: (2) Acute GI bleeding: (3) Hyperbilirubinemia: Plan This is a critically ill patient with massive bleeding from esophageal varices with hemorrhagic shock, decompensated liver disease and acute renal failure. Emergency upper endoscopy is being arranged. Continue octreotide drip, Protonix drip. Transfuse as necessary. ICU monitoring. History of Present Illness Reason for Consultation: Acute gastrointestinal bleeding secondary to esophageal varices. Hemorrhagic shock. Decompensated cirrhosis with jaundice and ascites. History of Present Illness Known alcoholic liver disease. Patient was seen by gastroenterology on 01/11/2024 because of suspected bleeding from esophageal varices. EGD was performed that demonstrated medium sized esophageal varices. Ligation of the varices was performed, 5 rubber bands were applied. The patient presented today with several episodes of hematemesis. He presented to the emergency room with hypotension, blood pressure of 87/46 and heart rate of 112. In the emergency room he had several episodes of hematemesis. He passed large amount of blood per rectum as well. Received 3 units of packed red blood cells 2 units of fresh frozen and 1 unit of platelets. Blood pressure remains around 100 systolic. The patient is complaining of diffuse abdominal pain. In the ER received dose of Rocephin, started on octreotide drip and Protonix drip. Initial blood work showed hemoglobin 6.6, creatinine 1.56, total bilirubin of 20. The patient had paracentesis at [facility] on 610, 2.8 L of fluid was obtained. Allergies Allergy/AdvReac Type Severity Reaction Status Date / Time bee venom protein (honey bee) Allergy Severe Anaphylaxis Verified 01/19/24 09:57 Home Medications Medication Instructions Recorded Confirmed Type pantoprazole 40 mg tablet,delayed 40 mg PO BID #60 tabs 12/31/23 01/23/24 Rx release sucralfate 1 gram tablet 1 g PO ACHS #120 tabs 12/31/23 01/23/24 Rx doxycycline hyclate 100 mg capsule 100 mg PO BID 28 days #56 caps 01/06/24 01/23/24 Rx baclofen 10 mg tablet 10 mg PO TID #90 tabs 01/19/24 01/23/24 Rx folic acid 1 mg tablet 1 mg PO DAILY #30 tabs 01/19/24 01/23/24 Rx furosemide 40 mg tablet 40 mg PO DAILY #30 tabs 01/19/24 01/23/24 Rx multivitamin with folic acid 400 1 tab PO DAILY #30 tabs 01/19/24 01/23/24 Rx mcg tablet (Tab-A-Piter) omeprazole 20 mg capsule,delayed 20 mg PO BID #60 caps 01/19/24 01/23/24 Rx release spironolactone 100 mg tablet 100 mg PO DAILY #30 tabs 01/19/24 01/23/24 Rx carvedilol 6.25 mg tablet 6.25 mg PO DAILY 01/23/24 01/23/24 History Patient History Medical History GERD (gastroesophageal reflux disease) controlled, stable per pt Surgical History H/O endoscopic sinus surgery H/O nasal septoplasty History of open reduction and internal fixation (ORIF) procedure right foot - 07/2022 [facility] Family History Grandmother (Maternal) Diabetes Other No significant family history Denies family history of Ovarian cancer Prostate cancer Depression Heart disease Myocardial infarction Breast cancer Lung cancer Colorectal cancer Stroke Social History Smoking Status: Current every day smoker Tobacco Type: Cigarettes packs per day: 1; Cigarettes Per Day: smokes cigarettes 20 per day- if smokes cigars 1/2 pack- advised; Second Hand Exposure: No; Do You Dip or Chew Tobacco: No; Hx Alcohol Use: Yes Alcohol type: beer Alcohol Intake Frequency: 4 or More x per/Week Hx Substance Use: No Preferred Language: Latvian Communication Ability: Effective Visual Impairment: Limited 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: Normal Auto Adjudication Specialist Required: No Beliefs That Will Affect Care: None marital status: single Current Living Situation: Alone current occupational status: employed How many Children do You have: 0 Feels Safe at Home: Yes Childhood Exposure to Second-Hand Smoke: Yes Diet: regular caffeine: No during the past year weight has: remained stable Dental Care, Regularly: No Physical Activity Frequency: Daily Seatbelt Use: never Sunscreen Use: No Assistive Devices: None Physical Exam Constitutional: The patient is acutely ill. ENMT: Fresh blood around in the mouth. Neck: Supple, no neck mass. Respiratory: Clear to auscultation bilaterally Cardiovascular: Tachycardic, no murmur. Gastrointestinal (Abdomen): Abdomen is distended with ascites, diffusely tender without guarding or rebound. Normal bowel sounds. Skin: Jaundiced Neurologic: The patient is awake and alert. No asterixis, moves all his extremities. Results & Data Vital Signs (Past 12 Hours) Vital Signs Temp Pulse Resp BP Pulse Ox O2 Del Method O2 Flow Rate 01/23/24 02:01 112 H 37 H 87/46 L 99 4 01/23/24 01:40 104 H 17 110/47 L 99 01/23/24 01:36 96 H 34 H 98/61 L 100 01/23/24 01:10 37 C 101 H 28 H 86/65 L 100 01/23/24 00:53 100 H 30 H 84/60 L 100 01/23/24 00:39 37.7 C H 103 H 20 69/49 L 99 01/23/24 00:19 37.6 C H 97 H 20 106/24 L 99 4 01/23/24 00:04 98 H 01/22/24 23:39 98 H 30 H 72/40 L 88 L Room Air Laboratory Results Laboratory data reviewed.
== END 2024-01-23 06:09 | disposition short-term general hospital (02) | DRG 380 ==
LOC: ED 23:57 → 1E 01-23 02:15 → OR 01-23 02:15 → SUATTDRO 01-23 02:22 → INTOOBSV 01-23 02:22 → 1E 01-23 02:22